=== PATIENT | female | born 1960 | race Caucasian/White ===

== ENCOUNTER 2017-06-10 08:00 | Outpatient (RCR) | payer OTHER, SELFPAY | END 2017-06-10 23:59 | LOC: OT 08:00 | PROVIDERS: PCP Family Medicine; Visit Provider Orthopaedic Surgery | DX: M19.012 Primary osteoarthritis, left shoulder (principal); M75.42 Impingement syndrome of left shoulder; M25.512 Pain in left shoulder | CPT/HCPCS: 97014; 97033; 97035; 97110; 97140; 97165; G0283 ==

== ENCOUNTER 2017-07-20 07:00 | Outpatient (RCR) | payer OTHER, SELFPAY | END 2017-07-20 07:01 | disposition home or self-care (01) | LOC: OT 07:00 | PROVIDERS: Family Provider Family Medicine; PCP Family Medicine; Visit Provider Orthopaedic Surgery | DX: M19.012 Primary osteoarthritis, left shoulder (principal) | CPT/HCPCS: 97014; 97033; 97035; 97110; 97124; 97140; G0283 ==

== ENCOUNTER → 2017-08-24 09:25 | Outpatient (CLI) | payer OTHER, SELFPAY ==
--- NOTE | 2017-08-24 09:28 | US_ITS ---
US extremity LT limited CLINICAL INDICATION: ITS.REASON: TENDER NODULE ORDERING PHYSICIAN: Benjie Silva MD PATIENT AGE: 57 years COMPARISON: None FINDINGS: General survey was performed of the left arm in the area of clinical concern. No sonographic anomalies are apparent. No solid or cystic lesions are evident. There is homogeneous echogenicity of the underlying muscle and soft tissue. IMPRESSION: Unremarkable targeted ultrasound of the left upper extremity. Any palpable nodule may better evaluated with MRI if clinically warranted
== END ==
PROVIDERS: Family Provider Family Medicine; PCP Family Medicine; Visit Provider Surgery
DX: R22.9 Localized swelling, mass and lump, unspecified (principal)
CPT/HCPCS: 76882

== ENCOUNTER → 2018-04-05 08:42 | Outpatient (CLI) | payer OTHER, SELFPAY ==
--- NOTE | 2018-04-05 08:49 | MM_ITS ---
MM Dig screening mamm BI w/CAD ORDERING PHYSICIAN : Jeevan Meléndez PATIENT AGE: 58 years GENDER: Female COMPARISON: March 2017, 2015, 2014 used for comparison No hormones. No new complaints. Noncontributory family history. INDICATION: ITS.REASON: SCREENING TECHNIQUE: Standard CC and MLO images were obtained. R2 CAD reviewed. FINDINGS: Low-density breast bilaterally with generalized fatty replacement. No dominant mass nor suspicious calcifications either breast. No architectural distortion no significant new areas of concern. Bilateral follow-up in one year recommended . IMPRESSION: ...... Stable bilateral mammogram. No new areas of concern Follow-up fall one year recommended BI-RADS Category: 1 Negative RECOMMENDED FOLLOW-UP: 1YR 1 YEAR FOLLOW-UP (A letter has been sent to the patient regarding results of the study.)
== END ==
PROVIDERS: PCP Family Medicine; Visit Provider Family Medicine
DX: Z12.31 Encounter for screening mammogram for malignant neoplasm of breast (principal)
CPT/HCPCS: 77067

== ENCOUNTER 2018-08-09 16:10 | Inpatient (IN) ==
--- NOTE | 2018-08-09 16:35 | Emergency Department Note ---
ED Disposition Clinical Impression: Influenza, Hypertension, Diabetes, Pneumonia, Lung nodule Disposition: Still a Patient Condition on Discharge: Fair Referrals: Jeevan Meléndez [Primary Care Provider] - - Critical Care Critical Care Time: No Attestation: On 08/09/18, the high probability of a clinically significant, sudden or life threatening deterioration of the following system(s) required my full and direct attention, intervention and personal management. The time I documented below is in addition to time spent performing reported procedures but includes the following listed in this critical care notation. Medical Decision Making - Chaitanya Inquiry Pt receiving controlled substance: No Chaitanya was queried for this patient: No Vital Signs: 08/09/18 16:21 Temperature 98.8 F Temperature Source Oral Pulse Rate [Left Radial] 105 H Respiratory Rate 22 Blood Pressure [Right Arm] 136/65 Blood Pressure Mean [Right Arm] 88 Blood Pressure Source [Right Arm] Automatic Cuff Blood Pressure Position [Right Arm] Sitting 02 Sat by Pulse Oximetry 94 L Oxygen Delivery Method Nasal Cannula Oxygen Flow Rate (LPM) 3 - Lab Data Lab Results 08/09/18 16:25: WBC 16.6 H, RBC 3.53 L, Hgb 11.3 L, Hct 34.9 L, MCV 98.9, MCH 32.1 H, MCHC 32.5, RDW 13.5, Plt Count 219, MPV 9.7, Neut % (Auto) 75.6, Lymph % (Auto) 18.3, [place] % (Auto) 5.2, Eos % (Auto) 0.3, Baso % (Auto) 0.6, Neut # (Auto) 12.5 H, Lymph # (Auto) 3.0, [place] # (Auto) 0.9, Eos # (Auto) 0.1, Baso # (Auto) 0.1 08/09/18 16:25: Sodium 137, Potassium 3.6, Chloride 100, Carbon Dioxide 25, Anion Gap 15.6 H, BUN 27 H, Creatinine 1.39 H, Estimated Creat Clear 65, Estimated GFR 39 L, Est GFR ( Amer) 47 L, Glucose 87, Calcium 10.5 H 08/09/18 16:25: Lactate 1.4 Result diagrams: 08/09/18 16:25 08/09/18 16:25 Orders (Tests/Meds): ORDERS Category Date Time Status Cardiac Enzymes Stat Lab 08/09/18 16:25 Received Complete Blood Count Auto Diff Stat Lab 08/09/18 16:25 Results Liver Panel Stat Lab 08/09/18 16:25 Received Blood Culture Stat Micro 08/09/18 16:25 Ordered Blood Culture Stat Micro 08/09/18 16:26 Ordered Urine Culture Routine Micro 08/09/18 16:54 Received EKG Request [ECG Request by /Grecia] Stat Y 08/09/18 16:37 Ordered - Radiology Data #1 Image(s): Chest Image Reviewed: Yes I reviewed the patient's radiology image Preliminary Findings: Abnormal IMPRESSION: 1. 13 mm left lower lobe pulmonary nodule new since the previous exam. Chest CT suggested for further evaluation. 2. Cardiomegaly without failure 3. Possible right perihilar infiltrate Medical Decision Narrative: Patient underwent a white count of 16 K, her chest x-ray report was normal for perihilar infiltrates and left lower lobe nodule. I contacted her primary care physician and again the Janeth who agreed to admit her for IV antibiotics and nebulizer treatment, the nodule will be addressed as an outpatient Resp/SOB HPI - General Chief Complaint: Shortness of Breath/Dyspnea Stated Complaint: flu Time Seen by Provider: 08/09/18 16:30 Mode of Arrival: Ambulatory Limitations: No Limitations Description of Symptoms (Recalled from ER Triage Doc. by RN): Pt was sent over from doctors office for low oxygen, states it was 80s in the office, she was dx with the flu - History of Present Illness 58 years old white female non smoker with history of diabetes mellitus and hypertension. 2 days ago she was diagnosed with influenza at [facility], since then she has been experiencing shortness of breath, wheezing, palpitation and exer tional dyspnea. The patient was seen by her primary care physician Dr. Meléndez who noted that she was experiencing mild hypoxia that is corrected by oxygen so he sent her to the ED for pneumonia work up. She denies having chest pain, nausea vomiting or diarrhea, hemoptysis hematemesis coffee-ground emesis melanotic stool or bleeding per rectum. He denies it denies having flank pain dysuria hematuria or frequency. She is requesting to be admitted to Kin Fowler MD Complaint: shortness of breath, cough Onset (ago): day(s) (2 days.) Severity: moderate Consistency/Duration: intermittent Relieving factors: oxygen, rest Exacerbating factors: exertion Known history of: diabetes Associated symptoms: cough, wheezing Treatment prior to arrival: oxygen, bronchodilator - Related Data Home Medications Medication Instructions Recorded Confirmed Amlodipine Besylate [Amlodipine 5 mg PO DAILY 08/09/18 08/09/18 5mg tab] Atorvastatin Calcium [Atorvastatin 20 mg PO DAILY 08/09/18 08/09/18 20mg Tab] Candesartan/Hydrochlorothiazid 1 each PO DAILY 08/09/18 08/09/18 [Candesartan-Hctz 32-12.5 mg Tb] Empagliflozin [Jardiance] 10 mg PO DAILY 08/09/18 08/09/18 Fenofibrate Nanocrystallized 145 mg PO DAILY 08/09/18 08/09/18 [Fenofibrate] Metformin HCl [Metformin ER 1,000 mg PO DAILY 08/09/18 08/09/18 Gastric] Oseltamivir Phosphate [Tamiflu 75 mg PO BID 08/09/18 08/09/18 75mg Capsule] Pioglitazone HCl [Actos 30mg 30 mg PO DAILY 08/09/18 08/09/18 tablet] glyBURIDE [Diabeta 5mg tablet] 5 mg PO DAILY 08/09/18 08/09/18 Allergies Allergy/AdvReac Type Severity Reaction Status Date / Time No Known Allergies Allergy Verified 08/27/17 14:26 [facility] History - Hepatitis A Screen Drug use history?: No High risk sexual behaviors?: No History of sexually transmitted infection?: No Currently employed?: No Childcare worker?: No Do you have indoor plumbing?: Yes Do you have electricity?: Yes Attestation statement:: This patient has been screened for Hepatitis A risk factors. I have reviewed the patient's past medical history: Yes Medical History: Reports:: Diabetes Mellitus Type 2 Denies:: Diabetes Mellitus Type 1 - Social History Smoking Status: Never smoker Alcohol Intake: never Alcohol Intake Frequency:: other Substance Use Type: denies use Occupational Status: employed - Psychiatric History Expresses thoughts of harming self/others: None Suicide Plan Description: No Plan Family Hx:: Hypertension ROS Obtained: Yes All systems reviewed & no additional complaints Physical Exam - General General appearance: alert, in no apparent distress, obese, other (He is in no cardiopulmonary distress. ) - Head Head exam: atraumatic, normocephalic, normal inspection - Eye Eye exam: Present: normal appearance, PERRL, EOMI. Absent: scleral icterus, nystagmus - ENT ENT exam: Present: normal exam, normal oropharynx, mucous membranes moist, TM's normal bilaterally, normal external ear exam - Neck Neck exam: Present: normal inspection, full ROM, trachea midline. Absent: tenderness, meningismus, lymphadenopathy - Chest Chest inspection: Present: normal inspection, symmetric chest wall rise. Absent: tenderness - Respiratory Respiratory exam: Present: normal lung sounds bilaterally, wheezes (The patient has very mild end expiratory rhonchi.). Absent: respiratory distress - Cardiovascular Cardiovascular exam: Present: regular rate, normal rhythm. Absent: JVD - Abdominal Exam Abdominal exam: Present: soft, normal bowel sounds. Absent: distention, tenderness, guarding, rebound, rigidity - Extremities Exam Extremities exam: Present: normal inspection, full ROM, normal capillary refill. Absent: calf tenderness - Back Exam Back exam: Present: normal inspection. Absent: tenderness, CVA tenderness (R), CVA tenderness (L), vertebral tenderness - Neurological Exam Neurological exam: Present: alert, oriented X3, CN II-XII intact, motor sensory deficit, reflexes normal - Psychiatric Psychiatric exam: Present: normal affect, normal mood - Skin Skin exam: Present: warm, dry, intact, normal color - Lymphatic Lymphatic Findings: no adenopathy
[2018-08-09 16:52] LABS: Basophils # 0.1 K/mm3 (0-0.2); Basophils % 0.6 % (0.1-2.0); Eosinophils # 0.1 K/mm3 (0.0-0.4); Eosinophils % 0.3 % (0.1-12.0); Hematocrit 34.9 % (37.0-47.0); Hemoglobin 11.3 g/dL (12.2-16.2); Lymphocytes % 18.3 % (10-50); Mean Corpuscular HGB Conc 32.5 g/dL (31.8-35.4); Mean Corpuscular Hemoglobin 32.1 pg (27.0-31.2); Mean Corpuscular Volume 98.9 fl (81-99); Mean Platelet Volume 9.7 fl (7.4-10.4); Monocytes # 0.9 K/mm3 (0.1-1.0); Monocytes % 5.2 % (1.7-9.3); Neutrophils # 12.5 K/mm3 (1.8-7.8); Neutrophils % 75.6 % (37.0-80.0); Platelet Count 219 K/mm3 (142-424); Red Blood Count 3.53 M/mm3 (4.20-5.40); Red Cell Distribution Width 13.5 % (11.5-17.5); White Blood Count 16.6 K/mm3 (4.8-10.8)
[2018-08-09 17:04] LABS: Anion Gap 15.6 mEq/L (5-15); Calcium 10.5 mg/dL (8.5-10.1); Potassium 3.6 mmoL/L (3.5-5.1)
[2018-08-09 17:15] LABS: Alanine Aminotransferase 33 U/L (12-78); Albumin Level 2.8 gm/dL (3.4-5.0); Alkaline Phosphatase 59 U/L (46-116); Aspartate Amino Transferase 23 U/L (15-37); Bilirubin,Direct 0.1 mg/dL (0.0-0.2); Bilirubin,Indirect 0.2 mg/dL (0.0-0.9); Bilirubin,Total 0.3 mg/dL (0.2-1.0); Creatine Kinase 75 U/L (26-192); Total Protein,Serum 8.2 gm/dL (6.4-8.2)
[2018-08-09 17:25] LABS: Lymphocytes % 18 % (10-50); Monocytes % 5 % (2-9); Neutrophils % 77 % (42-76); Total Cells Counted 100
--- NOTE | 2018-08-09 20:29 | History & Physical Report ---
*Admission Date: 08/09/18 *Chief complaint: sob *History of present illness: 58 yrs old female non smoker with history of diabetes mellitus and hypertension. Pt states 2 days ago she was diagnosed with influenza at [facility], since then she has been experiencing shortness of breath, wheezing, palpitation and exertional dyspnea. The patient was seen by her primary care physician Dr. Meléndez who noted that she was experiencing mild hypoxia, pulse ox in the 80's that is corrected by oxygen so he sent her to the ED for pneumonia work up. Pt admitted for pneumonia and low o2 sats needing o2. [facility] History I have reviewed the patient's past medical history: Yes Medical History: Reports:: Diabetes Mellitus Type 2, Hyperlipidemia, Hypertension Denies:: Cancer, Diabetes Mellitus Type 1, MRSA *Have you ever received a pneumonia vaccine?: No *Have you received a flu vaccine this season?: Yes Other Medical History: Reports: Arthritis Other Surgeries: Yes: Appendectomy - *Social History Educational Level: Completed High School Smoking Status: Former smoker Alcohol Intake: never Alcohol Intake Frequency:: other Substance Use Type: denies use *Occupational Status:: employed *Travel in the last 8 weeks: Inside the [place] - Psychiatric History Expresses thoughts of harming self/others: None Suicide Plan Description: No Plan Family Hx:: Diabetes, Heart Attack, Hypertension, Stroke Review of Systems - Review of Systems Review of systems:: pertinent systems reviewed and negative unless documented below - Constitutional Reports fever(s), Reports weakness - Eyes Denies double vision - ENT Denies difficulty swallowing - *Cardiovascular Reports shortness of breath, Denies chest pain with activity - *Respiratory Reports change in phlegm color, Reports chest congestion, Reports cough, Reports shortness of breath, Reports shortness of breath with activity, Reports wheezing - *Gastrointestinal Denies abdominal pain - *Genitourinary Denies urinary incontinence - *Musculoskeletal Denies decreased muscle mass - Integumentary/Breasts Denies rash - *Neurologic Denies dizziness - Psychiatric Denies anxiety - Endocrine Denies flushing - Hematologic/Lymphatic Denies enlarged lymph nodes - Allergic/Immunologic Denies lip swelling Meds Home Medications Medication Instructions Recorded Confirmed Type Amlodipine Besylate [Amlodipine 5 mg PO DAILY 08/09/18 08/09/18 History 5mg tab] Atorvastatin Calcium [Atorvastatin 20 mg PO DAILY 08/09/18 08/09/18 History 20mg Tab] Candesartan/Hydrochlorothiazid 1 each PO DAILY 08/09/18 08/09/18 History [Candesartan-Hctz 32-12.5 mg Tb] Empagliflozin [Jardiance] 10 mg PO DAILY 08/09/18 08/09/18 History Fenofibrate Nanocrystallized 145 mg PO DAILY 08/09/18 08/09/18 History [Fenofibrate] Metformin HCl [Metformin ER 1,000 mg PO BID 08/09/18 08/09/18 History Gastric] Oseltamivir Phosphate [Tamiflu 75 mg PO BID 08/09/18 08/09/18 History 75mg Capsule] Pioglitazone HCl [Actos 30mg 30 mg PO DAILY 08/09/18 08/09/18 History tablet] glyBURIDE [Diabeta 5mg tablet] 5 mg PO BID 08/09/18 08/09/18 History Allergies Allergy/AdvReac Type Severity Reaction Status Date / Time No Known Allergies Allergy Verified 08/27/17 14:26 Exam Vital signs and Labs for Last 24 Hours: Temp Pulse Resp BP Pulse Ox 98.2 F 95 H 20 136/67 93 L 08/09/18 18:38 08/09/18 18:38 08/09/18 18:38 08/09/18 18:38 08/09/18 18:38 Laboratory Results - last 24 hr 08/09/18 16:25: WBC 16.6 H, RBC 3.53 L, Hgb 11.3 L, Hct 34.9 L, MCV 98.9, MCH 32.1 H, MCHC 32.5, RDW 13.5, Plt Count 219, MPV 9.7, Neut % (Auto) 75.6, Lymph % (Auto) 18.3, [place] % (Auto) 5.2, Eos % (Auto) 0.3, Baso % (Auto) 0.6, Neut # (Auto) 12.5 H, Lymph # (Auto) 3.0, [place] # (Auto) 0.9, Eos # (Auto) 0.1, Baso # (Auto) 0.1, Total Counted 100, Neutrophils % (Manual) 77 H, Lymphocytes % (Manual) 18, Monocytes % (Manual) 5, Platelet Estimate Normal 08/09/18 16:25: Sodium 137, Potassium 3.6, Chloride 100, Carbon Dioxide 25, Anion Gap 15.6 H, BUN 27 H, Creatinine 1.39 H, Estimated Creat Clear 65, Estimated GFR 39 L, Est GFR ( Amer) 47 L, Glucose 87, Calcium 10.5 H 08/09/18 16:25: Lactate 1.4 08/09/18 16:25: Total Bilirubin 0.3, Direct Bilirubin 0.1, Indirect Bilirubin 0.2, AST 23, ALT 33, Alkaline Phosphatase 59, Total Creatine Kinase 75, CK-MB (CK-2) 0.7, CK-MB (CK-2) Rel Index 0.9, Troponin I < 0.02, Total Protein 8.2, Albumin 2.8 L I & O for Last 24 hours: Intake & Output 08/07/18 08/08/18 08/09/18 08/10/18 11:59 11:59 11:59 11:59 Weight 209 lb 9 oz - Constitutional no acute distress - *Routine HEENT Exam Head: Present: normocephalic Eye: Present: EOMI, PERRL ENT: Present: mucous membranes moist - *Routine Neck Exam Present: supple. Absent: lymphadenopathy - *Routine Respiratory Exam Present: wheezes, diminished air movement - *Routine Cardiovascular Exam Present: RRR - *Routine Abdominal Exam Present: soft, normoactive bowel sounds. Absent: tenderness - *Routine Extremities Exam Present: full ROM. Absent: cyanosis, clubbing, edema - *Routine Skin Exam Present: warm. Absent: rash - *Routine Neurological Exam Present: alert, oriented X3 - Routine Psychiatric Exam Present: normal affect Assessment and Plan - Assessment and plan all Dx Assessment and Plan for all problems:: orders per gabe
[2018-08-10 07:20] LABS: Basophils # 0.1 K/mm3 (0-0.2); Basophils % 0.5 % (0.1-2.0); Eosinophils # 0.1 K/mm3 (0.0-0.4); Eosinophils % 0.8 % (0.1-12.0); Lymphocytes # 1.9 K/mm3 (0.7-4.5); Lymphocytes % 18.4 % (10-50); Mean Corpuscular HGB Conc 30.8 g/dL (31.8-35.4); Mean Corpuscular Hemoglobin 31.7 pg (27.0-31.2); Mean Platelet Volume 9.8 fl (7.4-10.4); Monocytes # 0.5 K/mm3 (0.1-1.0); Monocytes % 4.8 % (1.7-9.3); Neutrophils # 7.7 K/mm3 (1.8-7.8); Neutrophils % 75.5 % (37.0-80.0); Platelet Count 164 K/mm3 (142-424); Red Blood Count 3.11 M/mm3 (4.20-5.40); Red Cell Distribution Width 13.3 % (11.5-17.5); White Blood Count 10.3 K/mm3 (4.8-10.8)
[2018-08-10 07:23] LABS: Anion Gap 13.6 mEq/L (5-15); Potassium 3.6 mmoL/L (3.5-5.1)
--- NOTE | 2018-08-10 07:30 | Pharmacy Consult Notes ---
[facility] Pharmacy VTE Monitoring - Patient Demographics Admission date: 08/10/18 Report Date: 08/10/18 Time: 07:30 Allergies/Adverse Reactions: Patient Allergies No Known Allergies Allergy (Verified 08/27/17 14:26) Height: 1.57 m Weight: 95.056 kg Patient Problems: Current Active Problems Influenza (Acute) Hypertension (Acute) Diabetes (Acute) Pneumonia (Acute) Lung nodule (Acute) - VTE Risk Labs: VTE Related Lab Results Hgb 11.3 g/dL (12.2-16.2) L 08/09/18 16:25 Hct 32.0 % (37.0-47.0) L 08/10/18 05:58 Plt Count 164 K/mm3 (142-424) D 08/10/18 05:58 BUN 28 mg/dL (7-18) H 08/10/18 05:58 Creatinine 1.20 mg/dL (0.55-1.02) H 08/10/18 05:58 Estimated Creat Clear 75 mL/min (50-200) 08/10/18 05:58 Was VTE Risk Assessment Performed: Yes VTE Score: 2 VTE Risk Level: Very Low Risk Clinical Trial Participant: No - Prophylaxis VTE Prophylaxis Ordered?: Yes Types of VTE Prophylaxis: TEDS Knee High
[2018-08-10 07:33] LABS: Calcium 9.3 mg/dL (8.5-10.1)
[2018-08-10 07:46] LABS: Hemoglobin 9.8 g/dL (12.2-16.2)
--- NOTE | 2018-08-10 10:06 | Progress Note ---
Internal Medicine - PN: Subj *Date: 08/10/18 *Time: 09:15 Interval history: pt has o2 off wiping nose and o2 sat dropped to 83%. Exam Vital signs and Labs for Last 24 Hours: Temp Pulse Resp BP Pulse Ox 98.4 F 85 18 125/66 93 L 08/10/18 08:00 08/10/18 08:00 08/10/18 08:00 08/10/18 08:00 08/10/18 08:00 Laboratory Results - last 24 hr 08/09/18 16:25: WBC 16.6 H, RBC 3.53 L, Hgb 11.3 L, Hct 34.9 L, MCV 98.9, MCH 32.1 H, MCHC 32.5, RDW 13.5, Plt Count 219, MPV 9.7, Neut % (Auto) 75.6, Lymph % (Auto) 18.3, [place] % (Auto) 5.2, Eos % (Auto) 0.3, Baso % (Auto) 0.6, Neut # (Auto) 12.5 H, Lymph # (Auto) 3.0, [place] # (Auto) 0.9, Eos # (Auto) 0.1, Baso # (Auto) 0.1, Total Counted 100, Neutrophils % (Manual) 77 H, Lymphocytes % (Manual) 18, Monocytes % (Manual) 5, Platelet Estimate Normal 08/09/18 16:25: Sodium 137, Potassium 3.6, Chloride 100, Carbon Dioxide 25, Anion Gap 15.6 H, BUN 27 H, Creatinine 1.39 H, Estimated Creat Clear 65, Jane mated GFR 39 L, Est GFR ( Amer) 47 L, Glucose 87, Calcium 10.5 H 08/09/18 16:25: Lactate 1.4 08/09/18 16:25: Total Bilirubin 0.3, Direct Bilirubin 0.1, Indirect Bilirubin 0.2, AST 23, ALT 33, Alkaline Phosphatase 59, Total Creatine Kinase 75, CK-MB (CK-2) 0.7, CK-MB (CK-2) Rel Index 0.9, Troponin I < 0.02, Total Protein 8.2, Albumin 2.8 L 08/09/18 20:21: POC Glucose 175 H 08/10/18 05:45: POC Glucose 83 08/10/18 05:58: WBC 10.3 D, RBC 3.11 L, Hgb 9.8 L D, Hct 32.0 L, MCV 103.0 H, MCH 31.7 H, MCHC 30.8 L, RDW 13.3, Plt Count 164 D, MPV 9.8, Neut % (Auto) 75.5, Lymph % (Auto) 18.4, [place] % (Auto) 4.8, Eos % (Auto) 0.8, Baso % (Auto) 0.5, Neut # (Auto) 7.7, Lymph # (Auto) 1.9, [place] # (Auto) 0.5, Eos # (Auto) 0.1, Baso # (Auto) 0.1 08/10/18 05:58: Sodium 140, Potassium 3.6, Chloride 106, Carbon Dioxide 24, Anion Gap 13.6, BUN 28 H, Creatinine 1.20 H, Estimated Creat Clear 75, Estimated GFR 46 L, Est GFR ( Amer) 55 L, Glucose 79, Calcium 9.3 D 08/10/18 05:58: Mycoplasma pneumon IgM Non-reactive 08/10/18 09:13: Troponin I < 0.02 I & O for Last 24 hours: Intake & Output 08/07/18 08/08/18 08/09/18 08/10/18 11:59 11:59 11:59 11:59 Intake Total 1470 / 1470 Balance 1470 / 1470 Weight 209 lb 9 oz Microbiology Reports for the Last 24 Hours: Microbiology 08/09/18 Unknown Sputum - Expectorated Sputum Gram Stain - Final - Constitutional no acute distress - *Routine HEENT Exam Head: Present: normocephalic Eye: Present: EOMI, PERRL ENT: Present: mucous membranes moist - *Routine Neck Exam Present: supple. Absent: lymphadenopathy - *Routine Respiratory Exam Present: wheezes, diminished air movement - *Routine Cardiovascular Exam Present: RRR - *Routine Abdominal Exam Present: soft, normoactive bowel sounds. Absent: tenderness - *Routine Extremities Exam Absent: cyanosis, clubbing, edema - *Routine Skin Exam Present: warm. Absent: rash - *Routine Neurological Exam Present: alert, oriented X3 - Routine Psychiatric Exam Present: normal affect Assessment and Plan - Assessment and plan all Dx Assessment and Plan for all problems:: discussed with gabe, all orders per gabe ct to r/o pe cardiology consult/echo- enlarged heart wait culture results
--- NOTE | 2018-08-10 10:24 | Consult Report ---
History of Present Illness Consult date: 08/10/18 Requesting physician: Rashid Tovar Consult reason: shortness of breath Chief complaint: SOA, fatigue Additional Medical History:: 1. Diabetes mellitus, treated for many years 2. Hypertension, treated for many years 3. Hyperlipidemia, treated for many years 4. Cardiomegaly noted on chest x-ray 07/2018 5. Hospitalized for pneumonia and flu 07/2018 6. History of tobacco use for 40 years, discontinued approximately 2011 7. Strong family history of coronary artery disease in both of her parents in their mid 50s History of present illness: 58-year-old white female with history of diabetes, hypertension and hyperlipidemia admitted to the hospital for hypoxia. Patient's primary care physician is Dr. Meléndez who noted that the patient was hypoxic at office visit for follow-up. Recently diagnosed with flu with continued fatigue and shortness of breath. Patient denies any chest pain, pressure or tightness. No history of exertional chest pain or shortness of breath prior to the diagnosis of the flu. She was in [place] last week at a for her brother and upon returning home noticed the increasing fatigue and weakness with shortness of breath. Patient hospitalized due to hypoxia and chest x-ray evidence of pneumonia on top of her flu diagnosis. Cardiology consulted due to mention of cardiomegaly noted on chest x-ray. Troponins have returned normal x2. Echocardiogram has been ordered. [facility] History Medical History: Reports:: Diabetes Mellitus Type 2, Hyperlipidemia, Hypertension Denies:: Cancer, Diabetes Mellitus Type 1, MRSA *Have you ever received a pneumonia vaccine?: No *Have you received a flu vaccine this season?: Yes Other Medical History: Reports: Arthritis Other Surgeries: Yes: Appendectomy - *Social History Educational Level: Completed High School Smoking Status: Former smoker Alcohol Intake: never Alcohol Intake Frequency:: other Substance Use Type: denies use *Occupational Status:: employed *Travel in the last 8 weeks: Inside the [place] - Psychiatric History Expresses thoughts of harming self/others: None Suicide Plan Description: No Plan Family Hx:: Diabetes, Heart Attack, Hypertension, Stroke Meds Home Medications Medication Instructions Recorded Confirmed Type Amlodipine Besylate [Amlodipine 5 mg PO DAILY 08/09/18 08/09/18 History 5mg tab] Atorvastatin Calcium [Atorvastatin 20 mg PO HS 08/09/18 08/10/18 History 20mg Tab] Candesartan/Hydrochlorothiazid 1 tab PO DAILY 08/09/18 08/10/18 History [Candesartan-Hctz 32-12.5 mg Tb] Empagliflozin [Jardiance] 10 mg PO DAILY 08/09/18 08/09/18 History Fenofibrate Nanocrystallized 145 mg PO HS 08/09/18 08/10/18 History [Fenofibrate] Metformin HCl [Metformin ER 1,000 mg PO BID 08/09/18 08/09/18 History Gastric] Oseltamivir Phosphate [Tamiflu 75 mg PO BID 08/09/18 08/09/18 History 75mg Capsule] Pioglitazone HCl [Actos 30mg 30 mg PO DAILY 08/09/18 08/09/18 History tablet] glyBURIDE [Diabeta 5mg tablet] 10 mg PO BID 08/09/18 08/10/18 History Allergies Allergy/AdvReac Type Severity Reaction Status Date / Time No Known Allergies Allergy Verified 08/27/17 14:26 Review of Systems - *Cardiovascular Reports shortness of breath, Reports shortness of breath with activity, Denies chest pain - *Respiratory Reports shortness of breath, Reports shortness of breath with activity - *Gastrointestinal Denies abdominal pain, Denies nausea, Denies vomiting - *Genitourinary Denies blood in urine - *Musculoskeletal Denies joint pain, Denies back pain - *Neurologic Reports weakness, Denies dizziness Exam Vital signs and Labs for Last 24 Hours: Temp Pulse Resp BP Pulse Ox 98.4 F 85 18 125/66 93 L 08/10/18 08:00 08/10/18 08:00 08/10/18 08:00 08/10/18 08:00 08/10/18 08:00 Laboratory Results - last 24 hr 08/09/18 16:25: WBC 16.6 H, RBC 3.53 L, Hgb 11.3 L, Hct 34.9 L, MCV 98.9, MCH 32.1 H, MCHC 32.5, RDW 13.5, Plt Count 219, MPV 9.7, Neut % (Auto) 75.6, Lymph % (Auto) 18.3, [place] % (Auto) 5.2, Eos % (Auto) 0.3, Baso % (Auto) 0.6, Neut # (Auto) 12.5 H, Lymph # (Auto) 3.0, [place] # (Auto) 0.9, Eos # (Auto) 0.1, Baso # (Auto) 0.1, Total Counted 100, Neutrophils % (Manual) 77 H, Lymphocytes % (Manual) 18, Monocytes % (Manual) 5, Platelet Estimate Normal 08/09/18 16:25: Sodium 137, Potassium 3.6, Chloride 100, Carbon Dioxide 25, Anion Gap 15.6 H, BUN 27 H, Creatinine 1.39 H, Estimated Creat Clear 65, Estimated GFR 39 L, Est GFR ( Amer) 47 L, Glucose 87, Calcium 10.5 H 08/09/18 16:25: Lactate 1.4 08/09/18 16:25: Total Bilirubin 0.3, Direct Bilirubin 0.1, Indirect Bilirubin 0.2, AST 23, ALT 33, Alkaline Phosphatase 59, Total Creatine Kinase 75, CK-MB (CK-2) 0.7, CK-MB (CK-2) Rel Index 0.9, Troponin I < 0.02, Total Protein 8.2, Albumin 2.8 L 08/09/18 20:21: POC Glucose 175 H 08/10/18 05:45: POC Glucose 83 08/10/18 05:58: WBC 10.3 D, RBC 3.11 L, Hgb 9.8 L D, Hct 32.0 L, MCV 103.0 H, MCH 31.7 H, MCHC 30.8 L, RDW 13.3, Plt Count 164 D, MPV 9.8, Neut % (Auto) 75.5, Lymph % (Auto) 18.4, [place] % (Auto) 4.8, Eos % (Auto) 0.8, Baso % (Auto) 0.5, Neut # (Auto) 7.7, Lymph # (Auto) 1.9, [place] # (Auto) 0.5, Eos # (Auto) 0.1, Baso # (Auto) 0.1 08/10/18 05:58: Sodium 140, Potassium 3.6, Chloride 106, Carbon Dioxide 24, Anion Gap 13.6, BUN 28 H, Creatinine 1.20 H, Estimated Creat Clear 75, Estimated GFR 46 L, Est GFR ( Amer) 55 L, Glucose 79, Calcium 9.3 D 08/10/18 05:58: Mycoplasma pneumon IgM Non-reactive 08/10/18 09:13: Troponin I < 0.02 I & O for Last 24 hours: Intake & Output 08/07/18 08/08/18 08/09/18 08/10/18 11:59 11:59 11:59 11:59 Intake Total 1470 / 1470 Balance 1470 / 1470 Weight 209 lb 9 oz Microbiology Reports for the Last 24 Hours: Microbiology 08/09/18 Unknown Sputum - Expectorated Sputum Gram Stain - Final - *Routine HEENT Exam Head: Present: normocephalic Eye: Present: EOMI, PERRL ENT: Present: mucous membranes moist - *Routine Neck Exam Present: supple. Absent: JVD, carotid bruit - *Routine Respiratory Exam Present: rales, rhonchi, diminished air movement. Absent: accessory muscle use, wheezes - *Routine Cardiovascular Exam Present: RRR. Absent: murmur, gallop, rubs - *Routine Abdominal Exam Present: soft. Absent: tenderness, distended, guarding - *Routine Extremities Exam Absent: edema, calf tenderness - *Routine Neurological Exam Present: alert, oriented X3, moving all extremities Assessment and Plan (1) Hypoxia Current visit: Yes Status: Acute Category: Medical Code(s): R09.02 - Hypoxemia (2) Cardiomegaly Current visit: Yes Status: Acute Category: Medical Code(s): I51.7 - Cardiomegaly (3) Ex-smoker for more than 1 year Current visit: Yes Status: Acute Category: Social Hx Code(s): Z87.891 - Personal history of nicotine dependence (4) Diabetes Current visit: Yes Status: Acute Category: Medical Code(s): E11.9 - Type 2 diabetes mellitus without complications (5) Hypertension Current visit: Yes Status: Acute Category: Medical Code(s): I10 - Ess ential (primary) hypertension (6) Influenza Current visit: Yes Status: Acute Category: Medical Code(s): J11.1 - Influenza due to unidentified influenza virus with other respiratory manifestations (7) Lung nodule Current visit: Yes Status: Acute Category: Medical Code(s): R91.1 - Solitary pulmonary nodule (8) Pneumonia Current visit: Yes Status: Acute Category: Medical Code(s): J18.9 - Pneumonia, unspecified organism - Assessment and plan all Dx Assessment and Plan for all problems:: 1. Obtain echocardiogram and EKG 2. Once patient has covered from both pneumonia and flu would pursue outpatient cardiac workup unless echocardiogram shows severe abnormality. 3. Further recommendations to follow pending results of echo.
--- NOTE | 2018-08-10 18:56 | Cardiology Report ---
PROCEDURE: 2-D M-mode and color Doppler study INDICATIONS FOR THE TEST: Chest pain COPD Heart Murmur Tobacco SmokingEX Palpitations Fatigue Syncope Edema Hypertension+Diabetes Mellitus+ Rheumatic Fever SOB+VALENCIA+Obesity+Hyperlipidemia+ Family History HD Additional History pneumonia, flu, lung nodule PATIENT INFORMATION HEIGHT: 62 WEIGHT: 209 GENDER: Female B/P: 136/67 2-D/M-MODE INTERPRETATION: 2-D MEASUREMENTS OBSERVED VALUES IN CMS Right Ventricular Dimension (RVDd) 2.5 Interventricular Septum (Thickness)(IVsd) 0.9 Left Ventricular Internal Dimensions(LVIDd) 5.3 Left Ventricular Posterior Wall (Thickness)(LVPWd) 0.9 Aortic Root 2.8 Aortic Cusp Separation 2.0 Left Atrial Dimensions (LAD) 3.8 2D 1. Left atrium is normal size, left ventricle is normal size, there is no concentric left ventricular hypertrophy, visually estimated ejection fraction of 55% with no regional wall motion abnormality. 2. The right atrium and right ventricle are normal size and contractility. 3. The aortic, mitral and tricuspid valvular grossly normal. 4. The pulmonic valve is poorly visualized. 5. No significant pericardial effusion noted. DOPPLER INTERROGATION: Doppler interrogation of the aortic, mitral and tricuspid valvular presence of mild mitral and tricuspid regurgitation, tricuspid regurgitation jet velocity is inadequate for calculation of the right systolic pressure, diastolic parameters are within normal range. CONCLUSION: 1. Normal left ventricular size normal left ventricular size, preserved left ventricular systolic pressure, visually estimated ejection fraction 55% with no regional wall motion abnormality, diastolic parameters are within normal range. 2. Mild mitral and tricuspid. 3.No significant pericardial effusion.
[2018-08-11 07:12] LABS: Basophils # 0.1 K/mm3 (0-0.2); Basophils % 0.8 % (0.1-2.0); Eosinophils # 0.1 K/mm3 (0.0-0.4); Eosinophils % 1.3 % (0.1-12.0); Hematocrit 32.1 % (37.0-47.0); Hemoglobin 9.7 g/dL (12.2-16.2); Mean Corpuscular HGB Conc 30.3 g/dL (31.8-35.4); Mean Corpuscular Hemoglobin 30.9 pg (27.0-31.2); Mean Platelet Volume 9.4 fl (7.4-10.4); Monocytes # 0.6 K/mm3 (0.1-1.0); Monocytes % 5.4 % (1.7-9.3); Neutrophils # 7.9 K/mm3 (1.8-7.8); Neutrophils % 73.5 % (37.0-80.0); Platelet Count 204 K/mm3 (142-424); Red Blood Count 3.15 M/mm3 (4.20-5.40); Red Cell Distribution Width 13.4 % (11.5-17.5); White Blood Count 10.7 K/mm3 (4.8-10.8)
--- NOTE | 2018-08-11 08:39 | Progress Note ---
Subjective Date: 08/11/18 Time: 08:36 Principal diagnosis: SOA Interval history: 58-year-old white female in room in bedside chair in no acute distress. States she is gradually feeling better but still with some shortness of breath. She denies any chest pain, pressure or tightness. Exam Vital signs and Labs for Last 24 Hours: Temp Pulse Resp BP Pulse Ox 98.3 F 83 18 130/65 96 08/11/18 07:55 08/11/18 07:55 08/11/18 07:55 08/11/18 07:55 08/11/18 07:55 Laboratory Results - last 24 hr 08/10/18 09:13: Troponin I < 0.02 08/10/18 10:53: POC Glucose 125 H 08/10/18 16:49: POC Glucose 103 08/10/18 20:14: POC Glucose 111 H 08/11/18 06:31: POC Glucose 94 08/11/18 06:34: WBC 10.7, RBC 3.15 L, Hgb 9.7 L, Hct 32.1 L, MCV 102.0 H, MCH 30.9, MCHC 30.3 L, RDW 13.4, Plt Count 204, MPV 9.4, Neut % (Auto) 73.5, Lymph % (Auto) 19.0, [place] % (Auto) 5.4, Eos % (Auto) 1.3, Baso % (Auto) 0.8, Neut # (Auto) 7.9 H, Lymph # (Auto) 2.0, [place] # (Auto) 0.6, Eos # (Auto) 0.1, Baso # (Auto) 0.1 I & O for Last 24 hours: Intake & Output 08/08/18 08/09/18 08/10/18 08/11/18 11:59 11:59 11:59 11:59 Intake Total 1470 / 1470 2842 / 2842 Balance 1470 / 1470 2842 / 2842 Weight 209 lb 9 oz 209 lb 9.002 oz Microbiology Reports for the Last 24 Hours: Microbiology 08/09/18 Unknown Sputum - Expectorated Sputum Gram Stain - Final 08/09/18 Unknown Sputum - Expectorated Sputum Sputum Culture - Preliminary 08/09/18 22:30 Urine,Clean Catch Urine Culture - Final Multiple organisms, suggests contamination. - *Routine HEENT Exam Head: Present: normocephalic Eye: Present: EOMI, PERRL ENT: Present: mucous membranes moist - *Routine Respiratory Exam Present: rhonchi, wheezes. Absent: accessory muscle use, rales - *Routine Cardiovascular Exam Present: RRR. Absent: murmur, gallop, rubs - *Routine Neurological Exam Present: alert, oriented X3, moving all extremities Progress Note: A&P (1) Hypoxia Status: Acute Current Visit: Yes (2) Ex-smoker for more than 1 year Status: Acute Current Visit: Yes (3) Diabetes Status: Acute Current Visit: Yes (4) Hypertension Status: Acute Current Visit: Yes (5) Influenza Status: Acute Current Visit: Yes (6) Lung nodule Status: Acute Current Visit: Yes (7) Pneumonia Status: Acute Current Visit: Yes Assessment and Plan for All Diagnoses:: Patient is stable from a cardiology standpoint. Echocardiogram showed normal left ventricular size and function with only mild mitral regurgitation. No further testing as an inpatient. Recommend stress testing as an outpatient due to multiple cardiac risk factors. We will see her as needed.
--- NOTE | 2018-08-11 08:48 | Progress Note ---
Internal Medicine - PN: Subj *Date: 08/11/18 *Time: 08:00 Interval history: pt states she is feeling better today but still having low o2 sat 88-89% Exam Vital signs and Labs for Last 24 Hours: Temp Pulse Resp BP Pulse Ox 98.3 F 83 18 130/65 96 08/11/18 07:55 08/11/18 07:55 08/11/18 07:55 08/11/18 07:55 08/11/18 07:55 Laboratory Results - last 24 hr 08/10/18 09:13: Troponin I < 0.02 08/10/18 10:53: POC Glucose 125 H 08/10/18 16:49: POC Glucose 103 08/10/18 20:14: POC Glucose 111 H 08/11/18 06:31: POC Glucose 94 08/11/18 06:34: WBC 10.7, RBC 3.15 L, Hgb 9.7 L, Hct 32.1 L, MCV 102.0 H, MCH 30.9, MCHC 30.3 L, RDW 13.4, Plt Count 204, MPV 9.4, Neut % (Auto) 73.5, Lymph % (Auto) 19.0, [place] % (Auto) 5.4, Eos % (Auto) 1.3, Baso % (Auto) 0.8, Neut # (Auto) 7.9 H, Lymph # (Auto) 2.0, [place] # (Auto) 0.6, Eos # (Auto) 0.1, Baso # (Auto) 0.1 I & O for Last 24 hours: Intake & Output 08/08/18 08/09/18 08/10/18 08/11/18 11:59 11:59 11:59 11:59 Intake Total 1470 / 1470 2842 / 2842 Balance 1470 / 1470 2842 / 2842 Weight 209 lb 9 oz 209 lb 9.002 oz Microbiology Reports for the Last 24 Hours: Microbiology 08/09/18 Unknown Sputum - Expectorated Sputum Gram Stain - Final 08/09/18 Unknown Sputum - Expectorated Sputum Sputum Culture - Preliminary 08/09/18 22:30 Urine,Clean Catch Urine Culture - Final Multiple organisms, suggests contamination. - Constitutional no acute distress - *Routine HEENT Exam Head: Present: normocephalic Eye: Present: EOMI, PERRL ENT: Present: mucous membranes moist - *Routine Neck Exam Present: supple. Absent: lymphadenopathy - *Routine Respiratory Exam Present: wheezes, diminished air movement - *Routine Cardiovascular Exam Present: RRR - *Routine Abdominal Exam Present: soft, normoactive bowel sounds. Absent: tenderness - *Routine Extremities Exam Absent: cyanosis, clubbing, edema - *Routine Skin Exam Present: warm. Absent: rash - *Routine Neurological Exam Present: alert, oriented X3 - Routine Psychiatric Exam Present: normal affect Assessment and Plan (1) Hypoxia Current visit: Yes Status: Acute Category: Medical Code(s): R09.02 - Hypoxemia (2) Ex-smoker for more than 1 year Current visit: Yes Status: Acute Category: Social Hx Code(s): Z87.891 - Personal history of nicotine dependence (3) Diabetes Current visit: Yes Status: Acute Category: Medical Code(s): E11.9 - Type 2 diabetes mellitus without complications (4) Hypertension Current visit: Yes Status: Acute Category: Medical Code(s): I10 - Essential (primary) hypertension (5) Influenza Current visit: Yes Status: Acute Category: Medical Code(s): J11.1 - Influenza due to unidentified influenza virus with other respiratory manifestations (6) Lung nodule Current visit: Yes Status: Acute Category: Medical Code(s): R91.1 - [place]ita [place] pulmonary nodule (7) Pneumonia Current visit: Yes Status: Acute Category: Medical Code(s): J18.9 - Pneumonia, unspecified organism - Assessment and plan all Dx Assessment and Plan for all problems:: rounded with gabe all orders per gabe
[2018-08-11 12:17] LABS: Albumin Level 2.5 gm/dL (3.4-5.0); Albumin/Globulin Ratio 0.5 (1.1-1.8); Anion Gap 18.1 mEq/L (5-15); Bilirubin,Total 0.2 mg/dL (0.2-1.0); Calcium 9.2 mg/dL (8.5-10.1); Globulin 4.9 gm/dl (1.3-3.2); Potassium 4.1 mmoL/L (3.5-5.1); Total Protein,Serum 7.4 gm/dL (6.4-8.2)
--- NOTE | 2018-08-12 09:22 | Discharge Summary ---
General - General Admission date:: 08/09/18 Discharge date: 08/12/18 HPI HPI: 58 yrs old female non smoker with history of diabetes mellitus and hypertension. Pt states 2 days ago she was diagnosed with influenza at [facility], since then she has been experiencing shortness of breath, wheezing, palpitation and exertional dyspnea. The patient was seen by her primary care physician Dr. Meléndez who noted that she was experiencing mild hypoxia, pulse ox in the 80's that is corrected by oxygen so he sent her to the ED for pneumonia work up. Pt admitted for pneumonia and low o2 sats needing o2. Hospital Course Hospital Course: iv antibiotics, breathing treatments, o2, chest ct:IMPRESSION: 1. Bilateral pneumonia. There is mediastinal and right hilar adenopathy which could be reactive. Recommend follow-up to confirm resolution. Trace bilateral effusions 2. Parenchymal opacity in the left lung base posteriorly may be due to an area of pneumonia as opposed to a pulmonary nodule as seen on the chest x-ray. Follow-up suggested to confirm resolution. 3. No evidence of pulmonary vessels aortic aneurysm or dissection chest x ray; pneumonia cardiology consult- see note today pt states she has been off o2 all night and sat 91% Objective Vital signs: Temp Pulse Resp BP Pulse Ox 98.1 F 85 20 120/68 91 L 08/12/18 08:00 08/12/18 08:00 08/12/18 08:00 08/12/18 08:00 08/12/18 08:00 no acute distress - *Routine HEENT Exam Head: Present: normocephalic Eye: Present: PERRL ENT: Present: mucous membranes moist - *Routine Respiratory Exam Present: wheezes - *Routine Cardiovascular Exam Present: RRR - *Routine Abdominal Exam Present: soft, normoactive bowel sounds - *Routine Skin Exam Present: intact - *Routine Neurological Exam Present: alert, oriented X3 - Routine Psychiatric Exam Present: normal affect Results Labs on day of discharge: Labs from last 24 hours 08/12/18 08/11/18 08/11/18 06:32 11:26 06:34 Sodium 143 Potassium 4.1 Chloride 108 H Carbon Dioxide 21 Anion Gap 18.1 H BUN 19 H D Creatinine 0.79 D Estimated Creat Clear 114 Estimated GFR 74 Est GFR ( Amer) 90 D Glucose 98 POC Glucose 115 H 169 H Calcium 9.2 Total Bilirubin 0.2 AST 30 D ALT 36 Alkaline Phosphatase 45 L Total Protein 7.4 Albumin 2.5 L Globulin 4.9 H Albumin/Globulin Ratio 0.5 L Preliminary micro results at discharge 08/09/18 Unknown Sputum Culture - Preliminary Sputum - Expectorated Sputum 08/09/18 16:26 Blood Culture - Preliminary Blood NO GROWTH AFTER 48 HOURS 08/09/18 16:26 Blood Culture - Preliminary Blood NO GROWTH AFTER 48 HOURS - Additional Comments rounded with gabe all orders per gabe DS: Diagnosis - Discharge Diagnosis (1) Hypoxia Status: Acute (2) Ex-smoker for more than 1 year Status: Acute (3) Diabetes Status: Acute (4) Hypertension Status: Acute (5) Influenza Status: Acute (6) Lung nodule Status: Acute (7) Pneumonia Status: Acute Discharge Plan - Patient Discharge Instructions ACTIVITY: Continue current activity DIET: continue same diet Patient Instructions: DI for Pneumonia -- Adult, DI for Influenza -- Adult - Follow up Plan Follow up with: Yandel Meléndez [Referring] - Disposition: Home, Self-Long-Term Medications: Home Medications Medication Instructions Recorded Confirmed Type Amlodipine Besylate [Amlodipine 5 mg PO DAILY 08/09/18 08/09/18 History 5mg tab] Atorvastatin Calcium [Atorvastatin 20 mg PO HS 08/09/18 08/10/18 History 20mg Tab] Candesartan/Hydrochlorothiazid 1 tab PO DAILY 08/09/18 08/10/18 History [Candesartan-Hctz 32-12.5 mg Tb] Empagliflozin [Jardiance] 10 mg PO DAILY 08/09/18 08/09/18 History Fenofibrate Nanocrystallized 145 mg PO HS 08/09/18 08/10/18 History [Fenofibrate] Metformin HCl [Metformin ER 1,000 mg PO BID 08/09/18 08/09/18 History Gastric] Oseltamivir Phosphate [Tamiflu 75 mg PO BID 08/09/18 08/09/18 History 75mg Capsule] Pioglitazone HCl [Actos 30mg 30 mg PO DAILY 08/09/18 08/09/18 History tablet] glyBURIDE [Diabeta 5mg tablet] 10 mg PO BID 08/09/18 08/10/18 History Azithromycin [Zithromax 250mg 250 mg PO 1300 5 Days #5 tablet 08/12/18 Rx tab] Ipratropium/Albuterol Sulfate 3 ml IH Q4HP PRN 30 Days #100 08/12/18 Rx [Duoneb 3mL neb] ampul.neb predniSONE [Prednisone 20mg 20 mg PO BID #10 tab 08/12/18 Rx Tab] Prescriptions/Medication Reconciliation: New Ipratropium/Albuterol Sulfate [Duoneb 3mL neb] 3 ml IH Q4HP PRN 30 Days #100 ampul.neb PRN Reason: Shortness Of Breath predniSONE [Prednisone 20mg Tab] 20 mg PO BID #10 tab Azithromycin [Zithromax 250mg tab] 250 mg PO 1300 5 Days #5 tablet Continue Amlodipine Besylate [Amlodipine 5mg tab] 5 mg PO DAILY Pioglitazone HCl [Actos 30mg tablet] 30 mg PO DAILY Metformin HCl [Metformin ER Gastric] 1,000 mg PO BID Fenofibrate Nanocrystallized [Fenofibrate] 145 mg PO HS Empagliflozin [Jardiance] 10 mg PO DAILY Candesartan/Hydrochlorothiazid [Candesartan-Hctz 32-12.5 mg Tb] 1 tab PO DAILY Atorvastatin Calcium [Atorvastatin 20mg Tab] 20 mg PO HS Oseltamivir Phosphate [Tamiflu 75mg Capsule] 75 mg PO BID glyBURIDE [Diabeta 5mg tablet] 10 mg PO BID
== END 2018-08-12 10:52 | disposition home or self-care (01) | DRG 195 ==
LOC: ER 16:10 → 2ND 17:49
PROVIDERS: ADMIT Emergency Medicine; ATTEND Emergency Medicine
CPT/HCPCS: 36415; 71020; 71046; 71275; 80048; 80053; 80076; 82550; 82553; 82962; 83605; 84484; 85007; 85025; 86738; 87040; 87070; 87086; 87205; 93005; 93306; 94640; 94761; 96374; 99284; J0456

== ENCOUNTER → 2018-08-29 09:32 | Outpatient (CLI) | payer OTHER, SELFPAY ==
--- NOTE | 2018-08-29 17:24 | XR_ITS ---
XR chest 2V HISTORY: ITS.REASON: PNEUMONIA ORDERING PHYSICIAN: Jeevan Meléndez PATIENT AGE: 58 years Technique: PA and lateral chest COMPARISON: PA and lateral chest from 08/09/2018. CT chest 08/10/2018. FINDINGS: The previous pneumonia and atelectasis at the medial right lung base have shown improvement and partial clearing. Mild residual infiltrate here but overall significantly improved. Be minimal infiltrate at the left lung base, lingula on appears improved as well. Minimal residual atelectasis and scant infiltrate here may persist. The right yessi is less dense less pronounced. Also right peritracheal region appears satisfactory. Upper lung nettles are clear. Small 6 mm granuloma left lung apex again noted. No pleural effusion. Chest wall T-spine unremarkable. Borderline cardiomegaly.. Superior mediastinum unremarkable. IMPRESSION 1.The Bibasilar infiltrate & atelectasis seen best on 08/10/2017 CT & only vaguely evident on 08/09/2018 chest film has shown improvement. .. Improvement, with near complete clearing these bibasilar pneumonia on today's plain films ... Only Scant residual infiltrate & atelectasis infiltrate at medial right lung base .... Mild residual atelectasis lingula 2. . Borderline cardiomegaly.
== END ==
PROVIDERS: PCP Family Medicine; Visit Provider Family Medicine
DX: J18.9 Pneumonia, unspecified organism (principal)
CPT/HCPCS: 71046

== ENCOUNTER → 2018-10-18 07:48 | Outpatient (CLI) | payer OTHER, SELFPAY ==
--- NOTE | 2018-10-18 07:51 | CT_ITS ---
CT chest wo con HISTORY: Follow-up pneumonia/adenopathy/pulmonary nodule ITS.REASON: F/U 1.5 CM NODULE, EFFUSION BL ORDERING PHYSICIAN: Jeevan Melnédez PATIENT AGE: 58 years COMPARISON: 08/10/2018 Technique: Axial images obtained. Sagittal, and coronal reformatted images are also generated and reviewed. All CT scans at the facility use one or more dose reduction, viz: automated exposure control, ma/kV adjustment per patient size (including targeted exams where dose is matched to indication, i.e. head), or iterative reconstruction technique. FINDINGS: Normal heart size. There are coronary artery calcifications. Previously noted nodes in the mediastinum and right hilum are once again noted but do appear smaller and may be reactive in nature. There is evidence of old granulomatous disease. Right lower lobe consolidation has improved. There is a calcified granuloma in left upper lobe and lingula. No suspicious pulmonary nodules are evident. Previously noted parenchymal opacity in the left lung base has resolved. Atrophic changes are present involving the right kidney. No acute bony findings. IMPRESSION: Overall there is been improvement in the appearance of the chest with resolved right lower lobe pneumonia, resolved parenchymal opacity in the left lower lobe, and improvement in the mediastinal and hilar lymph nodes. Coronary artery calcification
== END ==
PROVIDERS: PCP Family Medicine; Visit Provider Family Medicine
DX: R91.1 Solitary pulmonary nodule (principal); J90 Pleural effusion, not elsewhere classified
CPT/HCPCS: 71250

== ENCOUNTER 2019-01-05 07:00 | Outpatient (RCR) | payer OTHER, SELFPAY ==
--- NOTE | 2018-11-18 11:05 | HMH.OTOPEV ---
OT Inpatient Evaluation Rehab OT Outpatient Eval Start: 11/18/18 10:32 Freq: Status: Active Protocol: Document 11/18/18 10:32 TFRY (Rec: 11/18/18 11:05 TFRY [id number]) Electronically Signed By Naila Harrison OT 11/18/18 10:32 Outpatient Therapy Subjective History Subjective History This is a 58 year old right handed female referred to occupational therapy for right shoulder pain. Patient reports that pain has been ongoing but got worse over the past 2 weeks. Patient is unable to recall doing anything to her shoulder. Patient reports being able to do everything for herself but has pain with activities. Chief Complaint Pain Symptom Type Ache,Sharp,Dull Symptoms Relieved By Rest/Positioning Symptoms Aggravated By Physical Activity Prior Functional Limitations None Current Functional Limitations None Symptom Description Activity Dependent Level of pain today (0-10) 4 Pain scale - at its best (0-10) 0 Pain scale - at its worst (0-10) 8 Shoulder/Elbow Eval Shoulder Objective Measurements Palpation Tenderness tenderness shoulder exam standard right Shoulder Palpation Findings Tenderness Shoulder Palpation Overall Comment Tenderness at right AC joint and in upper trap. Shoulder ROM Right Shoulder ROM Limitations Pain Shoulder Abduction Active Range of WFL Motion (degrees) Shoulder Flexion Active Range of Motion WFL (degrees) Query Text: Shoulder External Rotation Active Range WFL of Motion (degrees) Shoulder Internal Rotation Active Range WFL of Motion (degrees) Shoulder Extension Active Range of WFL Motion (degrees) pain with active ROM shoulder exam right standard full ROM shoulder exam standard right Shoulder MMT Shoulder Abduction Strength Grade 3+ Fair+ Shoulder Extension Strength Grade 4- Good- Shoulder Flexion Strength Grade 4- Good- Shoulder Horizontal Abduction Strength 3+ Fair+ Grade Shoulder Horizontal Adduction Strength 4- Good- Grade Shoulder External Rotation Strength 3+ Fair+ Grade Shoulder Internal Rotation Strength 3+ Fair+ Grade Shoulder Strength Patient Testing Sitting Position Shoulder Special Tests impingement sign present shoulder ex
== END 2019-01-05 07:05 | disposition home or self-care (01) ==
LOC: OT 07:00
PROVIDERS: Visit Provider Nurse Practitioner Family
DX: M25.511 Pain in right shoulder (principal)
CPT/HCPCS: 97014; 97110; 97140; 97165; G0283

== ENCOUNTER → 2019-04-13 15:33 | Outpatient (CLI) | payer OTHER, SELFPAY ==
--- NOTE | 2019-04-13 15:35 | MM_ITS ---
PROCEDURE: MM DIG SCREENING MAMM BI W/CAD Patient Age:59Y CLINICAL INDICATION: SCREENING 59-year-old postmenopausal female. No hormones, no new complaints. Noncontributory family history COMPARISON: [facility] DIG MAMM-SCREEN PATTY from 04/09/2016 [facility] DIG MAMM-SCREEN PATTY W/CAD from 04/06/2017 [facility] MM Dig screening mamm BI w/CAD from 04/05/2018 TECHNIQUE: Standard CC and MLO images were obtained. R2 CAD reviewed. FINDINGS: Low-density breast with diffuse fatty replacement-minimal residual fibroglandular elements. Mammography is more optimal screening tool in breast of this character. No new areas of concern. No dominant mass or suspicious calcifications.. CAD computer review highlights no significant areas of concern today either Bilateral follow-up 1 year recommended IMPRESSION: Stable bilateral mammogram. Bilateral follow-up 1 year recommended Diffuse fatty replacement, low-density breast BI-RAD Category: 1 Negative FOLLOW-UP: 1YR 1 Year Follow-up (A letter has been sent to the patient regarding results of the study.) Dictated by: Abhishek Florian MD 04/19/2019 10:12 Electronically signed by Abhishek Florian MD in [place] 04/19/2019 10:12
== END ==
PROVIDERS: PCP Family Medicine; Visit Provider Family Medicine
DX: Z12.31 Encounter for screening mammogram for malignant neoplasm of breast (principal)
CPT/HCPCS: 77067

== ENCOUNTER → 2019-05-18 20:03 | Outpatient (CLI) | payer OTHER, SELFPAY ==
--- NOTE | 2019-05-18 20:07 | XR_ITS ---
PROCEDURE: XR CHEST 2V CLINICAL HISTORY: COUGH COMPARISON: CXR2V XR chest 2V from 08/29/2018 FINDINGS: There is mild cardiomegaly without failure. The lungs are clear without infiltrates, suspicious nodules, or pleural effusions. No acute bony abnormalities. IMPRESSION: No change with no acute finding Dictated by: Ivan Meehan MD 05/18/2019 20:55 Electronically signed by Ivan Meehan MD in [place] 05/18/2019 20:55
== END ==
PROVIDERS: PCP Emergency Medicine; Visit Provider Emergency Medicine
DX: R05 Cough (principal)
CPT/HCPCS: 71046

== ENCOUNTER → 2019-08-11 17:03 | Outpatient (CLI) | payer OTHER, SELFPAY ==
--- NOTE | 2019-08-11 17:07 | XR_ITS ---
PROCEDURE: XR KNEE LT 4V CLINICAL INDICATION: left knee pain COMPARISON: No exams were available for comparison FINDINGS: No fracture or dislocation. No lytic or blastic change. There is normal mineralization. There are moderate osteoarthritic changes of the medial compartment and patellofemoral joint with mild osteoarthritis of the lateral compartment. There is mild lateral tibial translation of 4 mm. Prominent anterior spurs present at the tibial spine region. There is generalized vascular calcification Other findings:None. IMPRESSION: Osteoarthritis Dictated by: Ivan Meehan MD 08/11/2019 18:28 Electronically signed by Ivan Meehan MD in [place] 08/11/2019 18:28
== END ==
PROVIDERS: PCP Family Medicine; Visit Provider Orthopaedic Surgery
DX: M25.562 Pain in left knee (principal)
CPT/HCPCS: 73564

== ENCOUNTER → 2020-01-12 15:19 | Outpatient (CLI) | payer OTHER, SELFPAY ==
[2020-01-12 18:11] LABS: Coronavirus 19 IgG Antibody Negative (Negative); Coronavirus 19 IgM Antibody Negative (Negative)
== END ==
PROVIDERS: Visit Provider Nurse Practitioner Family
DX: Z20.828 Contact with and (suspected) exposure to other viral communicable diseases (principal)
CPT/HCPCS: 86328

== ENCOUNTER → 2020-02-05 09:39 | Outpatient (CLI) | payer OTHER, SELFPAY ==
--- NOTE | 2020-02-05 09:46 | XR_ITS ---
PROCEDURE: XR KNEE LT 4V CLINICAL INDICATION: left knee pain; fall Posttraumatic pain COMPARISON: CR XR KNEE LT 4V from 08/11/2019 FINDINGS: There are moderate osteoarthritic changes of the medial compartment with mild osteoarthritis of the patellofemoral joint. No acute fracture or dislocation. Small suprapatellar effusion is suspected in there is vascular calcification noted. IMPRESSION: Osteoarthritic changes, no acute fracture Dictated by: Ivan Meehan MD 02/05/2020 11:00 Ivan Meehan MD in [place] 02/05/2020 11:00
== END ==
PROVIDERS: PCP Family Medicine; Visit Provider Orthopaedic Surgery
DX: M25.562 Pain in left knee (principal); X19.XXXA Contact with other heat and hot substances, initial encounter
CPT/HCPCS: 73564

== ENCOUNTER → 2020-02-06 08:37 | Outpatient (CLI) | payer OTHER, SELFPAY ==
--- NOTE | 2020-02-06 08:38 | MR_ITS ---
PROCEDURE: MR KNEE LT WO CON CLINICAL INDICATION: evaluate for a patella fracture S/P fall 4 days ago with pain. Suspect patella fx Prior x ray left knee 02/05/2020 COMPARISON: CR XR KNEE LT 4V from 02/05/2020 TECHNIQUE: Routine multiplanar multi echo sequences are performed without gadolinium enhancement. FINDINGS: The cruciate ligaments, collateral ligaments, patellar tendon, and quadriceps tendon appear intact. There is severe osteoarthritic change of the medial compartment and patellofemoral joint and moderate osteoarthritic change of the lateral compartment. There is medial extrusion of the medial meniscus at the body portion of the meniscus. No obvious meniscal tear. Prominent osteophytes are present medially at the knee joint. There is a medium-sized suprapatellar effusion containing some debris. There is a prominent septated Levy's cyst measuring 7.8 cm cephalad caudad. There is some soft tissue edema in the subcutaneous tissues in the upper leg posteriorly. There is a thin linear area of increased T2 signal involving the anterior aspect of the patella. This is without surrounding edema and may represent an artifact as opposed to a nondisplaced hairline fracture. This is not redemonstrated on the coronal images. IMPRESSION: 1. Moderate to severe osteoarthritic changes with large Levy's cyst and knee joint effusion without obvious internal derangement. 2. Thin linear T2 hyperintensity involving the anterior aspect of the patella on the axial images possibly due to artifact not duplicated on the coronal images. Hairline fracture would be included in the differential diagnosis but felt to be less likely due to lack of surrounding edema Dictated by: Ivan Meehan MD 02/07/2020 12:11 Ivan Meehan MD in [place] 02/07/2020 12:11
== END ==
PROVIDERS: PCP Family Medicine; Visit Provider Orthopaedic Surgery
DX: M25.562 Pain in left knee (principal)
CPT/HCPCS: 73721

== ENCOUNTER → 2020-03-07 08:56 | Outpatient (CLI) | payer OTHER, SELFPAY ==
[2020-03-07 08:59] LABS: Microscopic, Urine URINE MICROSCOPIC (MICROSCOPIC)
[2020-03-07 09:26] LABS: Appearance,Urine CLEAR (Clear); Bilirubin,Urine Negative (Negative); Blood, Urine Negative (Negative); Color,Urine YELLOW (Yellow); Glucose,Urine (UA) Negative (Negative); Ketones,Urine Negative (Negative); Leukocyte Esterase,Urine 1+ (Negative); Nitrate,Urine Negative (Negative); PH,Urine 6.5 (5.0-8.5); Protein,Urine 1+ (Negative); Urobilinogen,Urine 0.2 EU/dl (0.2)
[2020-03-07 09:46] LABS: Bacteria,Urine Trace /lpf
[2020-03-07 20:03] LABS: 25-OH Vitamin D, Total 45.2 ng/mL (30-100)
== END ==
PROVIDERS: Visit Provider Family Medicine
DX: Z00.00 Encounter for general adult medical examination without abnormal findings (principal)
CPT/HCPCS: 36415; 80053; 81001; 82306; 84439; 87086

== ENCOUNTER → 2020-04-01 13:01 | Outpatient (CLI) | payer OTHER, SELFPAY ==
[2020-04-01 13:15] LABS: Chloride 103 mmol/L (98-107)
[2020-04-01 13:16] LABS: Potassium 3.8 mmoL/L (3.5-5.1); Sodium 143 mmol/L (136-145)
[2020-04-01 13:18] LABS: Blood Urea Nitrogen 20 mg/dl (7-17); Estimated Glomerular Filt Rate 42 ml/min (>60); GFR (African American) 50 ML/MIN (>60)
[2020-04-01 13:19] LABS: Anion Gap 13.8 mEq/L (5-15); Calcium 10.2 mg/dl (8.4-10.2); Carbon Dioxide 30 mmol/L (22.0-30.0); Glucose 221 mg/dl (74-100)
== END ==
PROVIDERS: Visit Provider Family Medicine
DX: E87.6 Hypokalemia (principal)
CPT/HCPCS: 36415; 80048

== ENCOUNTER → 2020-04-02 10:58 | Outpatient (CLI) | payer OTHER, SELFPAY ==
--- NOTE | 2020-04-02 11:03 | MM_ITS ---
PROCEDURE: MM DIG SCREENING MAMM BI W/CAD Digital Breast Tomosynthesis Included CLINICAL INDICATION: SCREENING There is no personal or family history of breast cancer. COMPARISON: MG [facility] DIG MAMM-SCREEN PATTY W/CAD from 04/06/2017 [facility] MM Dig screening mamm BI w/CAD from 04/05/2018 MG MM DIG SCREENING MAMM BI W/CAD from 04/13/2019 TECHNIQUE: Standard CC and MLO images and 3D Tomosynthesis was obtained. R2 CAD reviewed. FINDINGS: Mild diffuse scattered fibroglandular densities are seen in both breasts on a background of fatty breast parenchyma. There are few scattered benign-appearing microcalcifications in each breast. There is a mole marker near the axillary tail of each breast. There is no suspicious lesion in either breast and no suspicious microcalcifications. IMPRESSION: Fibrofatty parenchyma with no suspicious lesions seen BI-RAD Category: 2 Benign Finding(s) FOLLOW-UP: 1YR 1 Year Follow-up (A letter has been sent to the patient regarding results of the study.) Dictated by: Dr. Lam Mcdaniel MD 04/02/2020 12:48 Dr. Lam Mcdaniel MD in [place] 04/02/2020 12:48
== END ==
PROVIDERS: PCP Family Medicine; Visit Provider Family Medicine
DX: Z12.31 Encounter for screening mammogram for malignant neoplasm of breast (principal)
CPT/HCPCS: 77063; 77067

== ENCOUNTER → 2020-08-06 09:27 | Outpatient (CLI) | payer OTHER, SELFPAY ==
[2020-08-06 09:36] LABS: Microscopic, Urine URINE MICROSCOPIC (MICROSCOPIC)
[2020-08-06 10:06] LABS: Appearance,Urine CLEAR (Clear); Basophils # 0.1 K/mm3 (0-0.2); Basophils % 0.8 % (0.1-2.0); Bilirubin,Urine Negative (Negative); Blood, Urine Negative (Negative); Color,Urine YELLOW (Yellow); Eosinophils # 0.2 K/mm3 (0.0-0.4); Eosinophils % 2.4 % (0.1-12.0); Glucose,Urine (UA) Negative (Negative); Hematocrit 41.1 % (37.0-47.0); Hemoglobin 13.2 g/dL (12.2-16.2); Ketones,Urine Negative (Negative); Leukocyte Esterase,Urine Negative (Negative); Lymphocytes # 2.7 K/mm3 (0.7-4.5); Lymphocytes % 27.8 % (10-50); Mean Corpuscular HGB Conc 32.1 g/dL (31.8-35.4); Mean Corpuscular Hemoglobin 31.9 pg (27.0-31.2); Mean Corpuscular Volume 99.2 fl (81-99); Mean Platelet Volume 9.3 fl (7.4-10.4); Monocytes # 0.5 K/mm3 (0.1-1.0); Monocytes % 5.6 % (1.7-9.3); Neutrophils # 6.1 K/mm3 (1.8-7.8); Neutrophils % 63.4 % (37.0-80.0); Nitrate,Urine Negative (Negative); PH,Urine 6.5 (5.0-8.5); Platelet Count 173 K/mm3 (142-424); Protein,Urine 1+ (Negative); Red Blood Count 4.14 M/mm3 (4.20-5.40); Red Cell Distribution Width 13.5 % (11.5-17.5); Urobilinogen,Urine 0.2 EU/dl (0.2); White Blood Count 9.6 K/mm3 (4.8-10.8)
[2020-08-06 10:12] LABS: Creatinine,Urine Random 15 mg/dL (Not Estab.)
[2020-08-06 10:31] LABS: Microalbumin/Creatinine Ratio 1932.6
[2020-08-06 10:37] LABS: Chloride 105 mmol/L (98-107); Potassium 4.7 mmoL/L (3.5-5.1); Sodium 141 mmol/L (136-145)
[2020-08-06 10:40] LABS: Alanine Aminotransferase 40 U/L (12-78); Albumin Level 4.5 g/dl (3.5-5.0); Albumin/Globulin Ratio 1.4 (1.1-1.8); Alkaline Phosphatase 50 U/L (38-126); Anion Gap 9.7 mEq/L (5-15); Aspartate Amino Transferase 52 U/L (14-36); Bilirubin,Total 0.4 mg/dl (0.2-1.3); Blood Urea Nitrogen 19 mg/dl (7-17); Carbon Dioxide 31 mmol/L (22.0-30.0); Cholesterol 178 mg/dl (140-200); Estimated Glomerular Filt Rate 63 ml/min (>60); GFR (African American) 77 ML/MIN (>60); Globulin 3.3 g/dL (1.3-3.2); Total Protein,Serum 7.8 g/dl (6.3-8.2); Triglycerides 190 mg/dl (30-150); VLDL Cholesterol 38 mg/dL (0-40)
[2020-08-06 10:41] LABS: Calcium 10.6 mg/dl (8.4-10.2); Glucose 117 mg/dl (74-100); HDL Cholesterol 54 mg/dl (40-60)
[2020-08-06 10:51] LABS: Direct LDL Cholesterol 79.87 mg/dL (100-129)
[2020-08-06 11:10] LABS: Free T4 (Free Thyroxine) 0.86 ng/dl (0.78-2.19)
[2020-08-06 11:11] LABS: Thyroid Stimulating Hormone 2.28 uIU/mL (0.465-4.68)
[2020-08-06 12:42] LABS: Chol/HDL Ratio 3.3 (1-3.5)
== END ==
PROVIDERS: Visit Provider Family Medicine
DX: Z00.00 Encounter for general adult medical examination without abnormal findings (principal); I10 Essential (primary) hypertension; E11.9 Type 2 diabetes mellitus without complications; R53.83 Other fatigue; Z79.84 Long term (current) use of oral hypoglycemic drugs; Z79.899 Other long term (current) drug therapy
CPT/HCPCS: 36415; 80053; 80061; 81001; 82043; 82570; 84439; 84443; 85025

== ENCOUNTER → 2021-03-03 08:27 | Outpatient (CLI) | payer OTHER, SELFPAY | PROVIDERS: PCP Family Medicine; Visit Provider Nurse Practitioner | DX: Z20.822 Contact with and (suspected) exposure to COVID-19 (principal); U07.1 COVID-19 | CPT/HCPCS: C9803; U0003; U0005 ==

== ENCOUNTER 2021-03-03 13:50 | Outpatient (CLI) | payer OTHER, SELFPAY ==
[2021-03-03 14:50] VITALS: BP 160/76; PULSE 77; RESP 20; TEMP 37.6; O2SAT 91
[2021-03-03 15:20] VITALS: BP 161/74; PULSE 87; RESP 20; O2SAT 94
[2021-03-03 16:30] VITALS: BP 190/77; PULSE 85; RESP 20; O2SAT 93
== END 2021-03-03 16:30 | disposition home or self-care (01) ==
LOC: INF 13:51
PROVIDERS: PCP Family Medicine; Visit Provider Internal Medicine
DX: U07.1 COVID-19 (principal)
CPT/HCPCS: 96365

== ENCOUNTER 2021-03-05 11:30 | Emergency (ER) | payer OTHER, SELFPAY ==
[2021-03-05] VITALS (10 sets, daily range): BP systolic 123–174; BP diastolic 54–71; PULSE 67–89; RESP 18–22; TEMP 36.6–38.7; O2SAT 62–94; BMI 42.0
--- NOTE | 2021-03-05 11:46 | XR_ITS ---
PROCEDURE: XR CHEST PORTABLE CLINICAL HISTORY: cough COMPARISON: CR CXR2V XR chest 2V from 08/09/2018 DX CXR2V XR chest 2V from 08/29/[address] chest wo con from 10/18/2018 CR XR CHEST 2V from 05/18/2019 FINDINGS: There is cardiomegaly. No definite CHF. Mild thickening of the right minor fissure which may be due to an area of atelectasis or pleural thickening. No lobar consolidation or collapse. No acute bony abnormalities. IMPRESSION: Minimal atelectatic change versus right minor fissure pleural thickening with cardiomegaly Dictated by: Ivan Meehan MD 03/05/2021 12:10 Ivan Meehan MD in [place] 03/05/2021 12:10
[2021-03-05 11:52] LABS: Basophils # 0.1 K/mm3 (0-0.2); Basophils % 0.8 % (0.1-2.0); Eosinophils % 0.1 % (0.1-12.0); Hematocrit 39.3 % (37.0-47.0); Hemoglobin 12.4 g/dL (12.2-16.2); Lymphocytes # 2.5 K/mm3 (0.7-4.5); Lymphocytes % 30.7 % (10-50); Mean Corpuscular HGB Conc 31.6 g/dL (31.8-35.4); Mean Corpuscular Hemoglobin 31.7 pg (27.0-31.2); Mean Corpuscular Volume 100.4 fl (81-99); Mean Platelet Volume 10.2 fl (7.4-10.4); Monocytes # 0.4 K/mm3 (0.1-1.0); Monocytes % 5.2 % (1.7-9.3); Neutrophils # 5.1 K/mm3 (1.8-7.8); Neutrophils % 63.3 % (37.0-80.0); Platelet Count 158 K/mm3 (142-424); Red Blood Count 3.91 M/mm3 (4.20-5.40); Red Cell Distribution Width 14.3 % (11.5-17.5); White Blood Count 8.1 K/mm3 (4.8-10.8)
[2021-03-05 11:55] LABS: Chloride 101 mmol/L (98-107)
[2021-03-05 11:56] LABS: Potassium 4.7 mmoL/L (3.5-5.1); Sodium 138 mmol/L (136-145)
--- NOTE | 2021-03-05 11:57 | PC.NURSE ---
rad at [facility]
[2021-03-05 11:58] LABS: Alanine Aminotransferase 45 U/L (12-78); Alkaline Phosphatase 48 U/L (38-126); Aspartate Amino Transferase 77 U/L (14-36); Bilirubin,Total 0.2 mg/dl (0.2-1.3); Blood Urea Nitrogen 33 mg/dl (7-17); Creatinine Clearance Estimated 33 mL/min (50-200); Estimated Glomerular Filt Rate 38 ml/min (>60); GFR (African American) 46 ML/MIN (>60)
[2021-03-05 11:59] LABS: Albumin Level 3.8 g/dl (3.5-5.0); Albumin/Globulin Ratio 1.2 (1.1-1.8); Anion Gap 14.7 mEq/L (5-15); Calcium 9.3 mg/dl (8.4-10.2); Carbon Dioxide 27 mmol/L (22.0-30.0); Globulin 3.3 g/dL (1.3-3.2); Glucose 136 mg/dl (74-100); Total Protein,Serum 7.1 g/dl (6.3-8.2)
--- NOTE | 2021-03-05 12:18 | CT_ITS ---
PROCEDURE: CT ANGIO CHEST PE PROTOCOL CLINCIAL INDICATION: short of breath, covid COMPARISON: CT AGCHEST CT angio chest from 08/10/[address] chest wo con from 10/18/2018 TECHNIQUE: IV Contrast: 70ML Isovue 370 Axial images obtained with sagittal and coronal reformats. All CT scans at the facility use one or more dose reduction, viz: automated exposure control, ma/kV adjustment per patient size (including targeted exams where dose is matched to indication, i.e. head), or iterative reconstruction technique. FINDINGS: HEART AND MEDIASTINAL STRUCTURES: Cardiomegaly. No evidence of aortic aneurysm or pulmonary embolus. There are few mildly prominent mediastinal and lymph nodes which may be reactive. Coronary artery calcifications and/or stents noted. LUNGS AND PLEURAL SPACES: Multifocal areas of ground-glass infiltrates noted with associated atelectatic changes with coarsening of the interstitial markings in a background of COPD and centrilobular emphysema. No evidence of pneumothorax. Trace bilateral effusions.. BONY STRUCTURES: Degenerative changes thoracic spine with endplate osteophytes UPPER ABDOMEN: Mildly prominent lymph nodes are present in the periportal region and epigastric area. Atrophic changes are present involving the right kidney. Probable small left renal cyst incompletely imaged ADDITIONAL FINDINGS: No other significant abnormalities. IMPRESSION: 1. Findings compatible with Covid19 pneumonia as described above with trace effusions. 2. No evidence of pulmonary embolus. 3. Mildly prominent mediastinal, periportal, and epigastric lymph nodes not significantly changed Dictated by: Ivan Meehan MD 03/05/2021 13:55 Ivan Meehan MD in [place] 03/05/2021 13:55
[2021-03-05 12:19] LABS: Troponin I 1.23 ng/ml (0.00-0.034)
--- NOTE | 2021-03-05 12:24 | ECG_ITS ---
APPROVED REPORT Exam: Resting ECG HR:87 bpm ECG Measurements Heart Rate 87 AXES VA 168 P 56 QRSd 82 QRS -3 QT 354 T 29 QTc 425 Conclusion Normal sinus rhythm Possible Left atrial enlargement Low voltage QRS RSR' or QR pattern in V1 suggests right ventricular conduction delay Septal infarct, age undetermined Abnormal ECG Electronically signed by : Abdulaziz Rosario MD 03/06/2021 17:29:06
--- NOTE | 2021-03-05 12:51 | CA_ITS ---
APPROVED REPORT EXAM: Comprehensive 2D, Doppler, and color-flow Echocardiogram Lan Specialist: Graciela Obando CRT Ht: 5 ft 2 in Wt: 230lbs BSA: 2.03 BP: 144/72 mmHg Indications: Covid +, Shortness of Breath, Diabetes, Obesity, Hyperlipidemia, Hypertension/HDD 2D Dimensions LVOT 1.92 cm (M/F) 1.5-2.5 LA Volume 33.40 mL LA Volume Index 16.50 mL/m2 (M/F) 16-34 M-Mode Dimensions RVDd 2.61 cm (0.9-2.6) LA Diam 3.72 cm (1.9-4.0) LVDd 4.69 cm (3.5-5.7) Ao Diam 3.91 cm (2.0-3.7) LVDs 2.84 cm (3.5-5.7) IVSd 1.97 cm (0.6-1.1) PWd 0.95 cm (0.6-1.1) EF (Teich) 70.00% FS 39.40% EDV (Teich) 101.90 mL ESV (Teich) 30.60 mL LV Diastology E Decel Time 283.00 (160-240 msec) E/A Ratio 1.00 MED E' 5.70 (< 7 cm/sec) MED A' 9.40 cm/s E'/MED E' Ratio 24.75 (>14) LAT E' 7.60 (<10 cm/sec) LAT A' 12.80 cm/s E/LAT E' Ratio 18.57 (>14) Aortic Valve AO Peak GR. 7.30 mmHg Mitral Valve MV E Max Codey. 141.00 (40-130 cm/s) MV A Velocity 141.00 (40-130 cm/s) E/A Ratio 1.00 MV Decel. Time 283.00 (160-240 ms) MV PHT 83.00 ms Pulmonary Valve PV Peak Velocity 94.00 (50-150 cm/s) Tricuspid Valve TR P. Velocity 132.00 cm/s RAP Estimate 10.00 mmHg RVSP 17.00 mmHg Left Ventricle Left atrium is mildly enlarged, left ventricle is normal size, mild concentric left ventricular hypertrophy, visually estimated ejection fraction 55 to 60% with no regional wall motion abnormality, grade 1 diastolic dysfunction seen with tissue Doppler evidence of raise left atrial pressure. Right Ventricle Right atrium and right ventricle qualitatively mildly enlarged with normal contractility. Aortic Valve Aortic valve is minimally thickened and fibrosed, there is no aortic stenosis or aortic insufficiency. Mitral Valve Mitral valve grossly normal, there is trace mitral regurgitation. Tricuspid Valve Tricuspid valve grossly normal, there is trace tricuspid regurgitation, tricuspid regurgitation jet velocity is inadequate for calculation of the right ventricular systolic pressure. Pulmonic Valve Pulmonic valve is poorly visualized. Great Vessels Aortic root is normal size. Inferior vena cava is poorly visualized. Pericardium No significant pericardial effusion noted. Conclusion 1. Technically difficult study because of the patient factors and poor acoustic windows. 2. Mild biatrial abdomen, normal left ventricular size, mild concentric left ventricular hypertrophy, visually estimated ejection fraction 55% with no regional wall motion abnormality, grade 1 diastolic dysfunction seen with tissue Doppler evidence of raise left atrial pressure. 3. Trace mitral and tricuspid regurgitation. 4. No significant pericardial effusion noted Electronically signed by : Jude Souza MD 03/06/2021 10:50:06
--- NOTE | 2021-03-05 13:00 | HMH.EDGENADL ---
ED Disposition Clinical Impression: Pneumonia due to COVID-19 virus, Acute respiratory failure with hypoxia Disposition: Home, Self-Care Condition on Discharge: Fair Instructions: DI for COVID-19 (Suspected or Confirmed ) Prescriptions: dexAMETHasone [Dexamethasone] 2 mg PO ONCE #5 tab Transmission Status: Pending to [facility] Referrals: Jeevan Meléndez [Primary Care Provider] - - Critical Care Critical Care Time: No Attestation: On 03/05/21, the high probability of a clinically significant, sudden or life threatening deterioration of the following system(s) required my full and direct attention, intervention and personal management. The time I documented below is in addition to time spent performing reported procedures but includes the following listed in this critical care notation. Medical Decision Making - Medical Records Medical records reviewed: Yes: I reviewed the patient's medical records. - Chaitanya Inquiry Pt receiving controlled substance: No Vital Signs: 03/05/21 11:31 03/05/21 12:15 03/05/21 12:30 Temperature 101.6 F H Temperature Source Oral Pulse Rate 86 84 Pulse Rate [Right Radial] 89 Respiratory Rate 22 18 Blood Pressure 138/69 145/66 H Blood Pressure [Right Arm] 174/71 H Blood Pressure Mean 106 Blood Pressure Mean [Right Arm] 105 Blood Pressure Source [Right Arm] Automatic Cuff Blood Pressure Position [Right Arm] Sitting 02 Sat by Pulse Oximetry 62 L 91 L 91 L Oxygen Delivery Method Room Air 03/05/21 13:00 03/05/21 14:30 03/05/21 15:00 Temperature Temperature Source Pulse Rate 87 73 71 Pulse Rate [Right Radial] Respiratory Rate 18 18 Blood Pressure 123/59 L 128/62 124/64 Blood Pressure [Right Arm] Blood Pressure Mean 97 Blood Pressure Mean [Right Arm] Blood Pressure Source [Right Arm] Blood Pressure Position [Right Arm] 02 Sat by Pulse Oximetry 91 L 93 L 91 L Oxygen Delivery Method - Lab Data Lab Results 03/05/21 11:40: WBC 8.1, RBC 3.91 L, Hgb 12.4, Hct 39.3, MCV 100.4 H, MCH 31.7 H, MCHC 31.6 L, RDW 14.3, Plt Count 158, MPV 10.2, Neut % (Auto) 63.3, Lymph % (Auto) 30.7, Cascade % (Auto) 5.2, Eos % (Auto) 0.1, Baso % (Auto) 0.8, Neut # (Auto) 5.1, Lymph # (Auto) 2.5, Cascade # (Auto) 0.4, Eos # (Auto) 0.0, Baso # (Auto) 0.1 03/05/21 11:40: Sodium 138, Potassium 4.7, Chloride 101, Carbon Dioxide 27, Anion Gap 14.7, BUN 33 H, Creatinine 1.40 H, Estimated Creat Clear 33, Estimated GFR 38 L, Est GFR ( Amer) 46 L, Glucose 136 H, Calcium 9.3, Total Bilirubin 0.2, AST 77 H, ALT 45, Alkaline Phosphatase 48, Troponin I 1.23 H, Total Protein 7.1, Albumin 3.8, Globulin 3.3 H, Albumin/Globulin Ratio 1.2 Result diagrams: 03/05/21 11:40 03/05/21 11:40 Orders (Tests/Meds): ED MEDICATIONS Generic Name Dose Route Start Last Admin Trade Name Frelaz PRN Reason Stop Dose Admin Sodium Chloride 10 ml 03/05/21 13:26 03/05/21 13:27 Sodium Chloride 0.9% 10ml Syr (Rad Only) IV 04/04/21 13:25 10 ml NEEDED PRN Administration Maintain IV Site Discontinued Medications Generic Name Dose Route Start Last Admin Trade Name Freq PRN Reason Stop Dose Admin Acetaminophen 1,000 mg 03/05/21 12:09 03/05/21 12:13 Acetaminophen 500mg Tab PO 03/05/21 12:10 1,000 mg ONCE ONE Administration Dexamethasone Sodium Phosphate 10 mg 03/05/21 11:46 03/05/21 12:13 Dexamethasone 4mg/Ml 5ml Mdv IV 03/05/21 11:47 10 mg ONCE ONE Administration Sodium Chloride 1,000 mls @ 999 mls/hr 03/05/21 12:30 03/05/21 12:53 Sod Chlor 0.9% 1000ml Bag IV 03/05/21 13:30 999 mls/hr .Q1H1M HOMERO Administration Iopamidol 70 ml 03/05/21 13:26 03/05/21 13:27 Iopamidol-370 (76%);100ml Bottle IV 03/05/21 13:27 70 ml ONCE ONE Administration Ketorolac Tromethamine 30 mg 03/05/21 11:47 03/05/21 12:13 Ketorolac 30mg/Ml Vial IV 03/05/21 11:48 30 mg ONCE ONE Administration Sodium Chloride 50 ml 02/13
--- NOTE | 2021-03-05 13:15 | PC.NURSE ---
Pt to rad.
--- NOTE | 2021-03-05 13:31 | PC.NURSE ---
pt return from CT
--- NOTE | 2021-03-05 13:33 | PC.NURSE ---
CV lab staff at
--- NOTE | 2021-03-05 15:20 | PC.NURSE ---
contacted care management to arrange home oxygen for pt.
--- NOTE | 2021-03-05 15:33 | CARE MANAGER ---
Received call from ER (Maddi Dior) stated patient needed home oxygen set up for home. Order, demographics and ER note faxed to [facility]. Called and spoke with Taylor Ochoa who states portable tank will be brought up to the ER this evening. This information was forwarded to ANN MARIE Linda.
[2021-03-05 15:35] LABS: Troponin I 1.17 ng/ml (0.00-0.034)
== END 2021-03-05 16:29 | disposition home or self-care (01) ==
PROVIDERS: Emergency Provider Emergency Medicine; PCP Family Medicine
DX: J96.01 Acute respiratory failure with hypoxia (principal); U07.1 COVID-19; J12.82 Pneumonia due to coronavirus disease 2019; E11.9 Type 2 diabetes mellitus without complications; E78.5 Hyperlipidemia, unspecified; I10 Essential (primary) hypertension; Z87.891 Personal history of nicotine dependence; Z79.899 Other long term (current) drug therapy
CPT/HCPCS: 36415; 71045; 71275; 80053; 84484; 85025; 93005; 93306; 96365; 96375; 99282; Q9967

== ENCOUNTER → 2021-04-01 11:34 | Outpatient (CLI) | payer OTHER, SELFPAY ==
--- NOTE | 2021-04-01 11:38 | XR_ITS ---
PROCEDURE: XR CHEST 2V CLINICAL HISTORY: COVID COMPARISON: DX CXR2V XR chest 2V from 08/29/2018 CR XR CHEST 2V from 05/18/[address] ANGIO CHEST PE PROTOCOL from 03/05/2021 CR XR CHEST PORTABLE from 03/05/2021 FINDINGS: Cardiomegaly without failure. There is a small faint area of increased density in the left upper lobe centrally which could be due to small area of infiltrate or atelectatic change. No acute bony abnormalities. IMPRESSION: Cardiomegaly. Small area of infiltrate or atelectatic change in the left upper lobe Dictated by: Ivan Meehan MD 04/01/2021 11:54 Ivan Meehan MD in [place] 04/01/2021 11:54
[2021-04-01 12:26] LABS: D-Dimer 0.66 ug/mL (0.0-0.5)
[2021-04-01 13:00] LABS: C-Reactive Protein 3.2 mg/L (0-4)
== END ==
PROVIDERS: PCP Family Medicine; Visit Provider Internal Medicine Pulmonary Disease
DX: R06.00 Dyspnea, unspecified (principal); J44.9 Chronic obstructive pulmonary disease, unspecified; I26.99 Other pulmonary embolism without acute cor pulmonale
CPT/HCPCS: 36415; 71046; 85378; 86140

== ENCOUNTER → 2021-04-03 16:28 | Outpatient (CLI) | payer OTHER, SELFPAY ==
--- NOTE | 2021-04-03 16:30 | MM_ITS ---
PROCEDURE: MM DIG SCREENING MAMM BI W/CAD Digital Breast Tomosynthesis Included CLINICAL INDICATION: SCREENING There is no personal or family history of breast cancer. COMPARISON: MG [facility] MM Dig screening mamm BI w/CAD from 04/05/2018 MG MM DIG SCREENING MAMM BI W/CAD from 04/13/2019 MG MM DIG SCREENING MAMM BI W/CAD from 04/02/2020 TECHNIQUE: Standard CC and MLO images and 3D Tomosynthesis was obtained. R2 CAD reviewed. FINDINGS: Mild diffuse scattered fibroglandular densities are seen throughout both breast and the findings are bilateral and symmetrical. There are couple of benign-appearing microcalcifications in each breast. There is a mole marker on each breast. There is no new or suspicious lesion in either breast and no suspicious microcalcifications. IMPRESSION: Fibrofatty parenchyma with no suspicious lesions seen BI-RAD Category: 2 Benign Finding(s) FOLLOW-UP: 1YR 1 Year Follow-up (A letter has been sent to the patient regarding results of the study.) Dictated by: Dr. Lam Mcdaniel MD 04/09/2021 09:36 Dr. Lam Mcdaniel MD in [place] 04/09/2021 09:36
== END ==
PROVIDERS: PCP Family Medicine; Visit Provider Family Medicine
DX: Z12.31 Encounter for screening mammogram for malignant neoplasm of breast (principal); R06.09 Other forms of dyspnea; Z86.16 Personal history of COVID-19
CPT/HCPCS: 77063; 77067; 94762

== ENCOUNTER 2021-05-06 13:56 | Outpatient (RCR) | payer OTHER, SELFPAY | END 2021-05-22 13:59 | disposition home or self-care (01) | LOC: PT 13:56 | PROVIDERS: Visit Provider Internal Medicine Pulmonary Disease | DX: R06.02 Shortness of breath (principal); Z86.16 Personal history of COVID-19 | CPT/HCPCS: G0237; G0238 ==

== ENCOUNTER → 2021-06-18 11:29 | Outpatient (CLI) | payer OTHER, SELFPAY | PROVIDERS: PCP Internal Medicine Pulmonary Disease; Visit Provider Internal Medicine Pulmonary Disease | DX: R06.09 Other forms of dyspnea (principal); R53.83 Other fatigue; G47.34 Idiopathic sleep related nonobstructive alveolar hypoventilation; R94.2 Abnormal results of pulmonary function studies; Z86.16 Personal history of COVID-19 | CPT/HCPCS: 94762 ==

== ENCOUNTER → 2021-06-30 15:30 | Outpatient (CLI) | payer OTHER, SELFPAY | PROVIDERS: PCP Family Medicine; Visit Provider Internal Medicine Pulmonary Disease | DX: G47.34 Idiopathic sleep related nonobstructive alveolar hypoventilation (principal); G47.33 Obstructive sleep apnea (adult) (pediatric) | CPT/HCPCS: 95806 ==

== ENCOUNTER → 2021-08-27 19:43 | Outpatient (CLI) | payer OTHER, SELFPAY | PROVIDERS: PCP Family Medicine; Visit Provider Nurse Practitioner Family | DX: G47.33 Obstructive sleep apnea (adult) (pediatric) (principal); I10 Essential (primary) hypertension; J44.9 Chronic obstructive pulmonary disease, unspecified; E66.9 Obesity, unspecified; Z68.41 Body mass index [BMI] 40.0-44.9, adult; U09.9 Post COVID-19 condition, unspecified | CPT/HCPCS: 95811 ==

== ENCOUNTER → 2021-10-06 16:37 | Outpatient (CLI) | payer OTHER, SELFPAY ==
--- NOTE | 2021-10-06 16:40 | XR_ITS ---
PROCEDURE INFORMATION: Exam: XR Left Hip Exam date and time: 10/06/2021 4:12 PM Age: 61 years old Clinical indication: Hip pain; Left hip TECHNIQUE: Imaging protocol: XR Left hip. Views: 2 or 3 views hip with pelvis when performed. COMPARISON: No relevant prior studies available. FINDINGS: Moderate osteoarthritis of the left hip joint, as manifested by decreased joint space, subchondral sclerosis, and subchondral cyst formation. Mild osteoarthritis of the right hip joint, as manifested by decreased joint space, subchondral sclerosis, and marginal osteophyte formation. Enthesophytes in the bilateral iliac crests. Mild degenerative changes of the bilateral sacroiliac joints. No acutely displaced fracture or dislocation. No aggressive osseous lesion. No significant soft tissue swelling. IMPRESSION: 1. Mild right and moderate left hip osteoarthritis. 2. No acute skeletal pathology.
--- NOTE | 2021-10-06 16:40 | XR_ITS ---
PROCEDURE INFORMATION: Exam: XR Left Knee Exam date and time: 10/06/2021 4:12 PM Age: 61 years old Clinical indication: Pain; Knee; Left; Additional info: Left lateral knee pain TECHNIQUE: Imaging protocol: XR Left knee. Views: 4 or more views. COMPARISON: MR KNEE LT WO CON 02/06/2020 8:48 AM FINDINGS: Severe osteoarthritis at the medial tibiofemoral compartment with bone on bone articulation. Moderate osteoarthritis in the patellofemoral compartment, and mild osteoarthritis in the lateral tibiofemoral compartment. No fracture, dislocation, or aggressive osseous lesion. No joint effusion. No significant soft tissue swelling. Moderate arterial calcific atherosclerotic disease. IMPRESSION: 1. Severe osteoarthritis in the medial tibiofemoral compartment with bone on bone articulation. 2. Moderate patellofemoral compartment osteoarthritis. 3. No acute skeletal pathology.
== END ==
PROVIDERS: Visit Provider Orthopaedic Surgery
DX: M25.552 Pain in left hip (principal); M25.562 Pain in left knee
CPT/HCPCS: 73502; 73564

== ENCOUNTER 2021-11-13 09:30 | Outpatient (RCR) | payer OTHER, SELFPAY ==
--- NOTE | 2021-10-28 13:36 | HMH.PTOPEV ---
PT Outpatient Evaluation Rehab PT Outpatient Evaluation Start: 10/28/21 11:06 Freq: Status: Active Protocol: Document 10/28/21 11:06 JESSICA (Rec: 10/28/21 13:35 JESSICA [id number]) Electronically Signed By Briana Mueller PT 10/28/21 11:06 Outpatient Therapy Subjective History Subjective History Pt is a 61 y/o female that reports gradual onset of left hip/knee pain 2-3 years ago. Pt reports she had radiographs showing osteoarthritis of the left hip and medial knee joint. She reports she had a choice of surgery/injections or exercise/medicine and would like to avoid surgery. Pt reports taking OTC arthritis medicine twice a day and wears a knee sleeve which helps pain. Pt reports ability to only walk/stand <5 minutes without increased pain and has to use a step to pattern on stairs. Pt denies change in balance or recent falls. Pt states the MD recommended she use her straight cane but she doesn't feel she needs it. Comorbidities: diabetes/ hypertension and uses 2L O2 at night. Pt repors the MD recommended she use a straight cane. 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 [employer] Chief Complaint Pain,Stiff Symptom Type Ache,Dull Symptoms Relieved By Ice,Brace/Support,OTC Meds Symptoms Aggravated By Bending/Stooping,Walking Prior Functional Limitations None Current Functional Limitations Standing,Squatting,Walking, Stairs Symptom Description Constant but Variable Level of pain today (0-10) 3 Pain scale - at its best (0-10) 1 Pain scale - at its worst (0-10) 8 Hip/Knee Eval Gait Observation General Gait Pattern Observation Antalgic Gait,Wide Based Gait, Decrease Weight Bear (L) Assistive Device Assistive Devices None / NA Palpation Tenderness left Knee Palpation Finding Tenderness Knee Palpation Overall Comment joint line, distal hamstring tendon, greater trochanter Hip Palpation Findings Tenderness
== END 2021-11-13 09:35 | disposition home or self-care (01) ==
LOC: PT 09:30
PROVIDERS: PCP Family Medicine; Visit Provider Orthopaedic Surgery
DX: M25.562 Pain in left knee (principal); M25.552 Pain in left hip
CPT/HCPCS: 97010; 97014; 97033; 97035; 97110; 97140; 97163; 97535; G0283

== ENCOUNTER → 2021-12-01 14:50 | Outpatient (CLI) | payer OTHER, SELFPAY | PROVIDERS: Visit Provider Nurse Practitioner Family | DX: G47.33 Obstructive sleep apnea (adult) (pediatric) (principal); G47.34 Idiopathic sleep related nonobstructive alveolar hypoventilation; I10 Essential (primary) hypertension | CPT/HCPCS: 94762 ==

== ENCOUNTER → 2022-03-19 07:03 | Outpatient (CLI) | payer OTHER, SELFPAY ==
[2022-03-19 07:37] LABS: Basophils # 0.1 K/mm3 (0-0.2); Basophils % 1.5 % (0.1-2.0); Eosinophils # 0.2 K/mm3 (0.0-0.4); Eosinophils % 2.5 % (0.1-12.0); Hematocrit 42.3 % (37.0-47.0); Hemoglobin 13.7 g/dL (12.2-16.2); Lymphocytes # 2.3 K/mm3 (0.7-4.5); Lymphocytes % 27.8 % (10-50); Mean Corpuscular HGB Conc 32.5 g/dL (31.8-35.4); Mean Corpuscular Volume 101.5 fl (81-99); Monocytes # 0.5 K/mm3 (0.1-1.0); Monocytes % 5.9 % (1.7-9.3); Neutrophils # 5.2 K/mm3 (1.8-7.8); Neutrophils % 62.3 % (37.0-80.0); Platelet Count 181 K/mm3 (142-424); Red Blood Count 4.16 M/mm3 (4.20-5.40); Red Cell Distribution Width 13.4 % (11.5-17.5); White Blood Count 8.4 K/mm3 (4.8-10.8)
[2022-03-19 07:56] LABS: Hemoglobin A1C 7.5 % (4.0-6.0)
[2022-03-19 08:00] LABS: Chloride 103 mmol/L (98-107); Sodium 140 mmol/L (136-145)
[2022-03-19 08:03] LABS: Alanine Aminotransferase 48 U/L (12-78); Albumin Level 4.3 g/dl (3.5-5.0); Albumin/Globulin Ratio 1.5 (1.1-1.8); Alkaline Phosphatase 62 U/L (38-126); Aspartate Amino Transferase 76 U/L (14-36); Bilirubin,Total 0.2 mg/dl (0.2-1.3); Blood Urea Nitrogen 20 mg/dl (7-17); Carbon Dioxide 25 mmol/L (22.0-30.0); Cholesterol 194 mg/dl (140-200); Estimated Glomerular Filt Rate 56 ml/min (>60); GFR (African American) 68 ML/MIN (>60); Globulin 2.9 g/dL (1.3-3.2); Total Protein,Serum 7.2 g/dl (6.3-8.2); Triglycerides 291 mg/dl (30-150); VLDL Cholesterol 58 mg/dL (0-40)
[2022-03-19 08:04] LABS: Calcium 9.7 mg/dl (8.4-10.2); Chol/HDL Ratio 4.3 (1-3.5); Glucose 212 mg/dl (74-100); HDL Cholesterol 45 mg/dl (40-60)
[2022-03-19 08:15] LABS: Direct LDL Cholesterol 87.79 mg/dL (100-129)
== END ==
PROVIDERS: PCP Family Medicine; Visit Provider Family Medicine
DX: E11.9 Type 2 diabetes mellitus without complications (principal); I10 Essential (primary) hypertension
CPT/HCPCS: 36415; 80053; 80061; 83036; 85025

== ENCOUNTER → 2022-04-02 07:53 | Outpatient (CLI) | payer OTHER, SELFPAY ==
--- NOTE | 2022-04-02 07:53 | MM_ITS ---
PROCEDURE INFORMATION: Exam: MG Bilateral Screening 3D Mammography Exam date and time: 04/02/2022 7:53 AM Age: 62 years old Clinical indication: Screening. No family history of breast cancer. TECHNIQUE: Imaging protocol: Bilateral Screening tomosynthesis and 2D mammography including computer-aided detection (CAD) when performed. COMPARISON: 1. MG MM DIG SCREENING MAMM BI W/CAD 04/03/2021 4:29 PM 2. MG MM DIG SCREENING MAMM BI W/CAD 04/02/2020 11:02 AM 3. MG MM DIG SCREENING MAMM BI W/CAD 04/13/2019 3:59 PM 4. MG SCBI MM Dig screening mamm BI w/CAD 04/05/2018 9:20 AM FINDINGS: MAMMOGRAPHY: Breast composition: There are scattered areas of fibroglandular density. Mass: None. Architectural distortion: None. Calcifications: No suspicious calcifications. Asymmetric density: None. Skin thickening: None. Axillary adenopathy: None. IMPRESSION: No mammographic evidence of malignancy. Annual screening is recommended unless otherwise clinically indicated. ASSESSMENT: BI-RADS Category 1: Negative
== END ==
PROVIDERS: PCP Family Medicine; Visit Provider Family Medicine
DX: Z12.31 Encounter for screening mammogram for malignant neoplasm of breast (principal)
CPT/HCPCS: 77063; 77067

== ENCOUNTER → 2022-05-04 15:00 | Outpatient (CLI) | payer OTHER, SELFPAY | PROVIDERS: PCP Family Medicine; Visit Provider Nurse Practitioner Family | DX: G47.33 Obstructive sleep apnea (adult) (pediatric) (principal); R09.02 Hypoxemia; I10 Essential (primary) hypertension | CPT/HCPCS: 94762 ==

== ENCOUNTER → 2022-09-29 14:36 | Outpatient (CLI) | payer OTHER, SELFPAY ==
--- NOTE | 2022-09-29 14:40 | XR_ITS ---
FINAL REPORT CLINICAL HISTORY: knee pain COMPARISON: 10/06/2021 FINDINGS: LEFT KNEE Three views of the left knee reveal no evidence of fracture or dislocation. The bony alignment is normal. There are mild and moderate degenerative changes. There is a moderate medial compartment joint space narrowing. There are probable loose bodies posteriorly. There is no evidence of joint effusion. There are vascular calcifications. IMPRESSION: Mild and moderate degenerative changes with moderate medial compartment joint space narrowing and probable loose bodies posteriorly. All findings are stable. Reviewed, Interpreted and Dictated by Benjie Perla III, MD Transcribed by Annelise Randolph Authenticated and [facility]
== END ==
PROVIDERS: PCP Family Medicine; Visit Provider Orthopaedic Surgery
DX: M25.562 Pain in left knee (principal)
CPT/HCPCS: 73562

== ENCOUNTER → 2022-10-02 10:22 | Outpatient (CLI) | payer OTHER, SELFPAY ==
--- NOTE | 2022-10-02 10:25 | XR_ITS ---
FINAL REPORT CLINICAL HISTORY: right hip pain COMPARISON: 10/06/2021 FINDINGS: RIGHT HIP Two views of the right hip demonstrate no acute fracture or dislocation. There are mild degenerative changes in both hips and the lower lumbar spine. The visualized bony structures are well aligned. There are chronic calcifications adjacent to the right greater trochanter. IMPRESSION: Mild degenerative changes with no acute bony abnormality. Reviewed, Interpreted and Dictated by Benjie Perla III, MD Transcribed by Annelise Randolph Authenticated and [facility]
== END ==
PROVIDERS: PCP Family Medicine; Visit Provider Orthopaedic Surgery
DX: M25.551 Pain in right hip (principal)
CPT/HCPCS: 73502

== ENCOUNTER 2022-10-15 08:00 | Outpatient (RCR) | payer OTHER, SELFPAY | END 2022-10-15 08:05 | disposition home or self-care (01) | LOC: PT 08:00 | PROVIDERS: PCP Family Medicine; Visit Provider Orthopaedic Surgery | DX: M25.562 Pain in left knee (principal); M16.11 Unilateral primary osteoarthritis, right hip | CPT/HCPCS: 97110; 97163 ==

== ENCOUNTER → 2023-04-08 07:52 | Outpatient (CLI) | payer OTHER, SELFPAY ==
--- NOTE | 2023-04-08 07:52 | MM_ITS ---
PROCEDURE INFORMATION: Exam: MG Bilateral Screening 3D Mammography Exam date and time: 04/08/2023 7:56 AM Age: 63 years old Clinical indication: Screening examination; Additional info: Screening for breast cancer TECHNIQUE: Imaging protocol: Bilateral Screening tomosynthesis and 2D mammography including computer-aided detection (CAD) when performed. COMPARISON: 1. MG MM DIG SCREENING MAMM BI W/CAD 04/02/2022 7:53 AM 2. MG MM DIG SCREENING MAMM BI W/CAD 04/03/2021 4:29 PM 3. MG MM DIG SCREENING MAMM BI W/CAD 04/02/2020 11:02 AM FINDINGS: MAMMOGRAPHY: Breast composition: There are scattered areas of fibroglandular density. Mass: No suspicious masses. Architectural distortion: No suspicious distortion. Calcifications: No suspicious calcifications. Asymmetric density: None. Skin thickening: None. Axillary adenopathy: None. IMPRESSION: No mammographic evidence of malignancy. Annual screening is recommended unless otherwise clinically indicated. ASSESSMENT: BI-RADS Category 1: Negative
== END ==
PROVIDERS: PCP Family Medicine; Visit Provider Family Medicine
DX: Z12.31 Encounter for screening mammogram for malignant neoplasm of breast (principal)
CPT/HCPCS: 77063; 77067

== ENCOUNTER 2023-07-20 16:41 | Outpatient (CLI) | payer OTHER, MEDICARE, SELFPAY ==
[2023-07-20 16:54] LABS: Hemoglobin A1C 7.9 % (4.0-6.0)
== END 2023-07-20 23:59 ==
LOC: LAB.DROPOF 16:41
PROVIDERS: PCP Family Medicine; Visit Provider Family Medicine
DX: E11.9 Type 2 diabetes mellitus without complications (principal); Z79.4 Long term (current) use of insulin
CPT/HCPCS: 83036

== ENCOUNTER 2024-03-30 13:38 | Outpatient (CLI) | payer OTHER, MEDICARE, SELFPAY ==
--- NOTE | 2024-03-30 13:43 | XR_ITS ---
FINAL REPORT CLINICAL HISTORY: left knee pain COMPARISON: FINDINGS: LEFT KNEE 3 views of the left knee were obtained. There is no acute fracture or dislocation. There is advanced medial compartment joint space narrowing. Subchondral sclerosis is seen. There are osteophytes at the undersurface of the patella. Visualized joint spaces are normally aligned. Soft tissues are unremarkable. IMPRESSION: Degenerative changes without acute bony abnormality. Reviewed, Interpreted and Dictated by Shun Alfonso MD Transcribed by Andreina Goss Authenticated and . [facility]
== END 2024-03-30 23:59 | disposition home or self-care (01) ==
LOC: RAD 13:40
PROVIDERS: PCP Family Medicine; Visit Provider Orthopaedic Surgery
DX: M25.562 Pain in left knee (principal)
CPT/HCPCS: 73562

== ENCOUNTER 2024-04-06 09:33 | Outpatient (CLI) | payer OTHER, MEDICARE, SELFPAY ==
--- NOTE | 2024-04-06 09:33 | MM_ITS ---
PROCEDURE INFORMATION: Exam: MG Bilateral Screening 3D Mammography Exam date and time: 04/06/2024 9:23 AM Age: 64 years old Clinical indication: Screening exam. TECHNIQUE: Imaging protocol: Bilateral Screening tomosynthesis and 2D mammography including computer-aided detection (CAD) when performed. COMPARISON: 1. MG MM DIG SCREENING MAMM BI W/CAD 04/08/2023 7:56 AM 2. MG MM DIG SCREENING MAMM BI W/CAD 04/02/2022 7:53 AM FINDINGS: MAMMOGRAPHY: Breast composition: There are scattered areas of fibroglandular density. Mass: No suspicious masses. Architectural distortion: None. Calcifications: No suspicious calcifications. Asymmetric density: None. Skin thickening: None. Axillary adenopathy: None. IMPRESSION: No mammographic evidence of malignancy. Annual screening is recommended unless otherwise clinically indicated. ASSESSMENT: BI-RADS Category 1: Negative.
== END 2024-04-06 23:59 | disposition home or self-care (01) ==
LOC: RAD 09:33
PROVIDERS: PCP Family Medicine; Visit Provider Family Medicine
DX: Z12.31 Encounter for screening mammogram for malignant neoplasm of breast (principal)
CPT/HCPCS: 77063; 77067

== ENCOUNTER 2024-12-28 13:41 | Outpatient (CLI) | payer OTHER, MEDICARE, SELFPAY ==
--- NOTE | 2024-12-28 13:49 | XR_ITS ---
FINAL REPORT CLINICAL HISTORY: SOB cough chest pain COMPARISON: 04/01/2021 FINDINGS: CHEST 2 VIEWS No acute pulmonary density is evident. There is no evidence of effusion or other pleural disease. The mediastinum has a normal appearance. There is mild cardiomegaly, similar to prior exam. IMPRESSION: No acute findings. Reviewed, Interpreted and Dictated by Tomer Alvarado MD Transcribed by Priscilla Romo Authenticated and [facility]
[2024-12-28 14:23] LABS: Hematocrit 37.2 % (37.0-47.0); Hemoglobin 11.5 g/dL (12.2-16.2); Immature Granulocytes % 0.9 %; Mean Corpuscular HGB Conc 30.9 g/dL (31.8-35.4); Mean Corpuscular Hemoglobin 30.7 pg (27.0-31.2); Mean Corpuscular Volume 99.2 fl (81-99); Nucleated Red Blood Cells % 0 %; Platelet Count 168 K/mm3 (142-424); Red Blood Count 3.75 M/mm3 (4.20-5.40); Red Cell Distribution Width-SD 49.4 fL; White Blood Count 8.5 K/mm3 (4.8-10.8)
[2024-12-28 15:27] LABS: Chloride 110 mmol/L (98-107); Potassium 4.1 mmoL/L (3.5-5.1); Sodium 142 mmol/L (136-145)
[2024-12-28 15:30] LABS: Anion Gap 11.1 mEq/L (5-15); Blood Urea Nitrogen 26 mg/dl (7-17); Calcium 9.6 mg/dl (8.4-10.2); Carbon Dioxide 25 mmol/L (22.0-30.0); Creatinine,Serum 1.00 mg/dl (0.52-1.04); Estimated Glomerular Filt Rate 55 ml/min (>60); GFR (African American) 67 ML/MIN (>60); Glucose 168 mg/dl (74-100)
[2024-12-28 15:51] LABS: Free Thyroxine Index 2.1 ug/dL (5.93-13.13); T4 (Thyroxine) 6.8 ug/dl (5.53-11.0); Triiodothryronine (T3) Uptake 31 % (23.5-40.5)
[2024-12-28 16:04] LABS: Thyroid Stimulating Hormone 4.81 uIU/mL (0.465-4.68)
== END 2024-12-28 23:59 | disposition home or self-care (01) ==
LOC: LAB 13:43
PROVIDERS: PCP Family Medicine; Visit Provider Physician Assistant
DX: I10 Essential (primary) hypertension (principal); R07.89 Other chest pain; E11.9 Type 2 diabetes mellitus without complications; Z79.4 Long term (current) use of insulin; R94.31 Abnormal electrocardiogram [ECG] [EKG]
CPT/HCPCS: 36415; 71046; 80048; 82565; 84436; 84443; 84479; 84520; 85025

== ENCOUNTER 2025-01-04 10:45 | Outpatient (CLI) | payer OTHER, MEDICARE, SELFPAY ==
--- OUTSIDE RECORDS SUMMARY | 2025-01-04 10:48 | XMS_ITS | Clinical Summary ---
Author Organization [facility] ystem Address [address] [place] [address] Care Team Providers Care Cad Designer Drafter Name Role Phone Saundra Muir Monserrat LINO Primary Care Provider Medications glyburide (DIAbeta) 5 MG tablet Take 1 tablet by mouth Daily With Breakfast. 120 tablet 1 02/11/2022 Active candesartan-hydr ochlorothiazide (ATACAND HCT) 32-12.5 MG per tablet Take 1 tablet by mouth Daily. 30 tablet 1 02/11/2022 Active Januvia 100 MG tablet Take 1 tablet by mouth Daily. 90 tablet 03/25/2022 Active metFORMIN (GLUCOPHAGE) 1000 MG tablet Take 1 tablet by mouth 2 (Two) Times a Day With Meals. 180 tablet 03/25/2022 Active atorvastatin (LIPITOR) 20 MG tablet Take 1 tablet by mouth Daily. 30 tablet 04/07/2022 Active amLODIPine (NORVASC) 10 MG tablet 03/17/2022 Active fenofibrate (TRICOR) 145 MG tablet Take 1 tablet by mouth Daily. 30 tablet 04/13/2022 Active pioglitazone (ACTOS) 30 MG tablet Take 1 tablet by mouth Daily. 30 tablet 3 04/14/2022 Active Social History Tobacco Use Types Packs/Day Years Used Date Smoking Tobacco: Never Assessed Abuse Screen Answer Date Recorded Unsafe at Home or Work/School Not on file Feels Threatened by Someone? Not on file Does Anyone Keep You from Co ntacting Others or Doint Things Outside the Home? Not on file 03/26/2023 Physical Sign of Abuse Present Not on file 1 Housing Stability Answer Date Recorded Current Living Arrangements Not on file 03/14 Potentially Unsafe Housing Conditions Not on sherlyn e 03/26/2023 Family and Community Support Answer Sergio e Recorded Help with Day-to-Day Activities Not on file 03/26/2023 Lonely or Isolated Not on file 03/26/2023 Employment Answer Date Recorded Do you want help finding or keeping work or a tano b? Not on file 03/26/2023 Disabilities Answer Date Recorded Concentrating, Remembering, or Making Decisions Difficulty Not on file 03/26/2023 Doing Errands Independently Difficulty Not on fi le 03/26/2023 Education Answer Date Recorded Help with school or training? Not on file Preferred Language Not on file 03/26/2023 Comments Unknown Sex and Gender Information Value Date Recorded Sex Assigned at Not on file Legal Sex Female 11:04 AM EDT Gender Identity Not on file Sexual Orientation Not on file Plan of Treatment Health Maintenance Due Date Last Done Comments DXA SCAN 1958 TDAP/TD VACCINES (1 - Tdap) 1977 MAMMOGRAM 1998 COLOGUARD 2003 COLON CANCER SCREENING 5 YEAR SIGMOIDOSCOPY 2003 COLONOSCOPY [address] CANCER SCREENING 2003 CT COLONOGRAPHY 2003 FECAL OCCULT BLOOD TEST 2003 FIT Testing (1 year) 2003 Pneumococcal Vaccine 50+ (1 of 1 - PCV) 02/20/2008 ZOSTER VACCINE (1 of 2) 02/20/2008 ANNUAL PHYSICAL 02/11/2022 HEPATITIS C SCREENING 02/11/2022 COVID-19 Vaccine (1 - season) 2024 INFLUENZA VACCINE 03/14/2025 Care Teams Cad Designer Drafter Relationship Specialty Start Date End Date Saundra Muir, RISK [address] [place] [address] PCP - General Family Medicine 06/17/22
--- NOTE | 2025-01-04 11:15 | CA_ITS ---
APPROVED REPORT EXAM: Comprehensive 2D, Doppler, and color-flow Echocardiogram Commercial Kitchen Service Technician: Graciela Obando CRT Ht: 5 ft 2 in Wt: 251lbs BSA: 2.11 BP: 200/85 mmHg Indications: Chest Pain, Hypertension/HDD 2D Dimensions LA Volume 38.00 mL LA Volume Index 17.60 mL/m2 (M/F) 16-34 M-Mode Dimensions RVDd 3.10 cm (0.9-2.6) LA Diam 4.49 cm (1.9-4.0) LVDd 5.23 cm (3.5-5.7) LVDs 3.30 cm (3.5-5.7) IVSd 1.61 cm (0.6-1.1) PWd 1.65 cm (0.6-1.1) EF (Teich) 66.40% FS 36.90% EDV (Teich) 131.20 mL ESV (Teich) 44.10 mL LV Diastology E Decel Time 200 (160-240 msec) E/A Ratio 0.95 MED A' 13.10 cm/s LAT A' 11.30 cm/s Mitral Valve MV E Max Codey. 115.0 (40-130 cm/s) MV A Velocity 121.0 (40-130 cm/s) E/A Ratio 0.95 MV PHT 59.0 ms Pulmonary Valve PV Peak Velocity 85.0 (50-150 cm/s) Tricuspid Valve TR P. Velocity 219.00 cm/s RAP Estimate 10.00 mmHg RVSP 29.10 mmHg Left Ventricle The left ventricle is normal size. The left ventricular systolic function is normal. The left ventricular ejection fraction is within the normal range. There is increased LV wall thickness. There is normal LV segmental wall motion. Diastolic function is indeterminate. LVEF is 60%. Right Ventricle The right ventricle is normal size. The right ventricular systolic function is normal. Atria The left atrium size is normal. The right atrium size is normal. There is no Doppler evidence of interatrial shunt. Aortic Valve Aortic valve is mildly thickened. Trace aortic regurgitation. There is no aortic valvular stenosis. Mitral Valve The mitral valve is normal in structure. No evidence of mitral valve stenosis. Mild mitral regurgitation. Tricuspid Valve Tricuspid valve is grossly normal in structure and function. Trace tricuspid regurgitation. There is insufficient TR jet to estimate RVSP. Pulmonic Valve The pulmonary valve is normal in structure. Trace pulmonic regurgitation. Great Vessels The aortic root is normal in size. IVC is normal in size and collapses >50% with inspiration. Pericardium There is no pericardial effusion. Other Information Study Quality: Technically Difficult Conclusion Technically difficult study due to poor acoustic windows. Normal biventricular systolic function. Mild MR. Electronically signed by : Sobeida Gramajo MD 01/08/2025 19:38:41
[2025-01-04 12:10] VITALS: BMI 45.8
[2025-01-04] MEDS: METOPROLOL TARTRATE 50MG TABLET PO (12:21)
[2025-01-04 12:24] VITALS: BP 156/89; PULSE 66; RESP 16; TEMP 36.1; O2SAT 98
[2025-01-04 12:39] VITALS: BP 170/120; PULSE 68; RESP 16; O2SAT 92
[2025-01-04 12:42] VITALS: BP 175/75; PULSE 63; RESP 16; O2SAT 93
[2025-01-04 12:45] VITALS: BP 165/69; PULSE 65; RESP 16; O2SAT 94
[2025-01-04 12:48] VITALS: BP 165/69; PULSE 65; RESP 16; O2SAT 96
[2025-01-04 12:55] VITALS: BP 145/56; PULSE 60; RESP 16; O2SAT 96
--- NOTE | 2025-01-04 13:00 | CT_ITS ---
APPROVED REPORT Director Of Finance: CLINICAL INDICATION Chest Pain TECHNIQUE Image Acquisition: A 128 slice MDCT scanner ([employer] View) was used for data acquisition. A noncontrast coronary calcium scan was performed. A CT attenuation threshold of 130 Hounsfield units (HU) was used for the detection of calcium in contiguous voxels of 1 sq mm in area to be counted as individual lesions. Bolus tracking in the ascending aorta with a threshold of 180 HU was performed. Immediately afterwards, ECG synchronized cardiac CT was then performed from the cardiac base to apex using retrospective gating with ECG tube current modulation. A total of 85 mL of Isovue 370 mg/mL contrast medium was administered at 5 mL/sec followed by a saline flush using a biphasic injection protocol. A tube voltage of 120 KVp was used. The average heart rate at the time of acquisition was 61 bpm and regular. Image Reconstruction Transaxial images were reconstructed at 0.67 mm slide thickness. Data was reviewed interactively on an advanced workstation capable of 2 and 3-dimensional displays in all conventional reconstruction formats, including multiplanar reformations, maximum intensity projections, curved multiplanar reformations, and volume rendered reconstructions. When applicable, selected routine images describing the relevant coronary anatomy and pathology were saved and sent to PACS. Complications None Technical Quality Overall image quality was technically difficult due to significant motion and blooming artifact in the setting of significant calcification. Coronary artery opacification was suboptimal. Total DLP (Dose-Length Product) is 2947.9 mGy-cm. The reported value represents the total of one or more individual components during the CT acquisition of this date and at this time, and as such, the same value may appear in more than one CT report depending on the interpreting/reporting physicians. COMPARISON None FINDINGS CT Coronary Calcium Scoring LMA (Left Main Artery) = 87 LAD (Left Anterior Descending) = 643 LCX (Left Coronary Circumflex) = 369 RCA (Right Coronary Artery) = 1965 Total Calcium Score = 3064 using the AJ-130 method. The observed calcium score of 3064 is at 99th percentile for subjects of the same age, sex, and race/ethnicity. The interpretation of the calcium heart score is based on the following continuum*: 0 = no calcified plaque detected (risk of coronary artery disease is very low ??? less than 5%) 1-10 = calcium detected in extremely minimal levels (risk of coronary diseases is still low ??? less than 10%) 11-100 = mild levels of plaque detected with certainty (mild or minimal narrowing of heart arteries is likely) 101-400 = definite,at least moderate levels of plaque detected (relatively high risk of a heart attack within 3-5 years) >401-999 = extensive levels of plaque detected (high risk of heart attack, high levels of vascular disease are present, high likelihood of at least one significant coronary narrowing) *The calcium heart score quantifies the burden of coronary calcification/plaque in the coronary arteries. The calcium heart score is not able to evaluate the presence or burden of non-calcified (i.e. soft) plaque. There is also calcification in the aortic valve, as well as the ascending and descending thoracic aorta. Coronary CT Angiography The coronary arterial system is right dominant. Quantitative Stenosis Grading: Left Main (LM): The left main originates normally from the left sinus of Valsalva. The LM bifurcates into the left anterior descending artery and left circumflex artery. There is calcified/noncalcified plaque in the mid LM segment, with up to 50% luminal stenosis. Left Anterior Descending (LAD) and Diagonal Branches: The LAD gives off 2 diagonal branch(es). There is mixed calcified/noncalcified plaque in the proximal and mid LAD segments with up to 70-90% luminal stenosis. There is no evidence of LAD-myocardial bridge. Left Circumflex (LCX) and Obtuse Marginals (OM): The LCX gives off 1 Obtuse Marginal (OM) branch(es). There is mixed calcified/noncalcified plaque in the proximal and mid LCx segments with up to 50 to 70% luminal stenosis. Right Coronary Artery (RCA): The RCA originates normally from the right sinus of Valsalva. The RCA gives off a posterior descending artery (PDA) and posterolateral (PL) branches. There is a calcified/noncalcified plaque in the proximal, mid, and distal RCA segments with up to 70-90% luminal stenosis. Non-Coronary Cardiac Findings: Analysis of the left ventricular (LV) structure and function was performed after 3-D reconstruction of the LV from axial images, with user-corrected automatic contouring for assessment of LV volumes and user-defined reconstruction from oblique planes for measurement of 3-D cardiac structure and function. -The left ventricle systolic function is normal. -There is no left atrial appendage filling defect. Two right pulmonary veins and two left pulmonary veins drain normally into the left atrium. -No pericardial thickening or calcification. -Central and branch pulmonary arteries in the [id number] are unremarkable. -Thoracic aorta within the visualized thoracic aortic-branches in the [id number] is unremarkable. Extracardiac Structures No significant extra-cardiac findings. Note, however, that this study is focused on the cardiac findings. IMPRESSION -Technically difficult study due to significant motion and blooming artifact in the setting of significant calcification. -Presence of extensive coronary calcification with an Agatston score = 3064 using the AJ-130 method. -The observed calcium score of 3064 is at 99th percentile for subjects of the same age, sex, and race/ethnicity. -Severe, multivessel atherosclerotic coronary disease, with likely evidence of significant flow-limiting atherosclerosis of the LAD, RCA, and LCx. -CAD-RADS 4B. Management recommendations per ACC/AHA guidelines*, as clinically appropriate. *Recommendations: CAD RADS 0: Reassurance. Consider non-atherosclerotic causes of chest pain. CAD RADS 1: Consider non-atherosclerotic causes of chest pain. Consider preventive therapy and risk factor modification. CAD RADS 2: Consider non-atherosclerotic causes of chest pain. Consider preventive therapy and risk factor modification, particularly for patients with nonobstructive plaque in multiple segments. CAD RADS 3: Consider further functional testing. Consider symptom-guided anti-ischemic and preventive pharmacotherapy as well as risk factor modification per published guideline statements. CAD RADS 4A: Consider further functional testing or invasive coronary angiography with revascularization per published guideline statements. Consider symptom-guided anti-ischemic and preventive pharmacotherapy as well as risk factor modification per published guideline statements. CAD RADS 4B: Invasive coronary angiography recommended with revascularization per published guideline statements. Consider symptom-guided anti-ischemic and preventive pharmacotherapy as well as risk factor modification per published guideline statements. CAD RADS 5: Consider invasive angiography and/or viability assessment with revascularization per published guideline statements. Consider symptom-guided anti-ischemic and preventive pharmacotherapy as well as risk factor modification per published guideline statements. CRITICAL RESULT None COMMUNICATION Per this written report The coronary and cardiac findings of this CCTA were reviewed, reported, and signed by Chadd Gramajo MD (Director Patient) Conclusion Electronically signed by : Sobeida Gramajo MD 01/04/2025 13:47:32
[2025-01-04] MEDS: 0.9 % SODIUM CHLORIDE 50 ML VIAL IV (13:52)
[2025-01-04] MEDS: IOPAMIDOL-370 (76%);100ML BOTTLE 85 ML IV (13:52)
== END 2025-01-04 13:00 | disposition home or self-care (01) ==
LOC: RT 10:47 → RAD 12:09
PROVIDERS: PCP Family Medicine; Visit Provider Physician Assistant
DX: I25.10 Atherosclerotic heart disease of native coronary artery without angina pectoris (principal); I34.0 Nonrheumatic mitral (valve) insufficiency; I10 Essential (primary) hypertension; E11.9 Type 2 diabetes mellitus without complications; R94.31 Abnormal electrocardiogram [ECG] [EKG]
CPT/HCPCS: 75574; 93306; Q9967

== ENCOUNTER 2025-01-09 19:36 | Inpatient (IN) | payer OTHER, MEDICARE, SELFPAY ==
[2025-01-09] VITALS (32 sets, daily range): BP systolic 111–240; BP diastolic 50–205; PULSE 67–87; RESP 12–40; TEMP 36.3–37.2; O2SAT 58–100; BMI 44.2; BMI 45.4
--- NOTE | 2025-01-09 19:39 | ECG_ITS ---
APPROVED REPORT Exam: Resting ECG HR:81 bpm ECG Measurements Heart Rate 81 AXES MD 178 P 58 QRSd 97 QRS 66 QT 370 T 87 QTc 408 Conclusion SINUS RHYTHM Difficult to interpret secondary to profound baseline artifact Electronically signed by : Dmitry Zaman, 01/10/2025 02:21:51
--- NOTE | 2025-01-09 19:40 | XR_ITS ---
PROCEDURE INFORMATION: Exam: XR Chest Exam date and time: 01/09/2025 8:32 PM Age: 64 years old Clinical indication: Dyspnea; Additional info: Dyspnea and hypoxia TECHNIQUE: Imaging protocol: Radiologic exam of the chest. Views: 1 view. COMPARISON: CR XR CHEST 2V 12/28/2024 1:50 PM FINDINGS: Lungs: Moderate bilateral perihilar and interstitial prominence most consistent with pulmonary edema. Pleural spaces: Unremarkable. No pleural effusion. No pneumothorax. Heart/Mediastinum: Moderate enlargement of the cardiac silhouette noted. Bones/joints: Unremarkable. IMPRESSION: 1. Moderate bilateral perihilar and interstitial prominence most consistent with pulmonary edema. 2. Moderate enlargement of the cardiac silhouette noted.
--- NOTE | 2025-01-09 19:40 | HMH.EDGENADL ---
Discharge Plan Disposition Patient Disposition: Admitted Condition: Critical Clinical Impressions Clinical Impression: Acute hypoxemic respiratory failure, Adult respiratory distress syndrome, Flash pulmonary edema, Hypertensive emergency, Elevated troponin I level Discharge ED Provider: Dmitry Zaman Adult HPI <BEAU Valencia - Last Filed: 01/10/25 13:28> General Chief complaint: Upper Respiratory Infection Stated complaint: SOA Time Seen by Provider: 01/09/25 19:40 History of Present Illness HPI narrative: Patient presents for acute hypoxia and respiratory distress. 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 Patient reports that she was attempting to walk to her car and suddenly could not breathe. Patient arrives in extremis with oxygen saturation of 58. Patient is unable due to her distress to give a meaningful history initially thus deferred until we stabilize her. Patient has recently had a cardiac workup however the results were not available currently and reports that does have cardiovascular disease but and has obstructive sleep apnea with alveolar hypoventilation and utilizes BiPAP at night but without oxygen according to her family members present. Family members also give collateral history that patient recently had an echo and a cardiac CT but they are unaware of what the results show she is not been reevaluated since. Multiple coworkers states that the patient has been fine throughout the day with no complaints.. Patient has a history of hypertension hyperlipidemia insulin-dependent type 2 diabetes mellitus Related Data Home Medications ?Medication ?Instructions ?Recorded ?Confirmed red yeast rice 600 mg capsule 600 mg PO DAILY 08/17/19 01/10/25 glucosamine HCl 500 mg tablet 500 mg PO BID 03/17/22 01/10/25 multivitamin with minerals 1 tab PO DAILY 03/17/22 01/10/25 (Hair,Skin and Nails tablet) omega [id number]-fish oil 1,000 mg 1 cap PO DAILY 03/17/22 01/10/25 (120 mg-180 mg) capsule (Fish Oil) atorvastatin 20 mg tablet 20 mg PO HS 01/10/25 01/10/25 candesartan 32 1 tab PO DAILY 01/10/25 01/10/25 mg-hydrochlorothiazide 12.5 mg tablet glyburide 5 mg tablet 10 mg PO BID 01/10/25 01/10/25 pioglitazone 30 mg tablet 30 mg PO DAILY 01/10/25 01/10/25 Previous Rx's ?Medication ?Instructions ?Recorded pen needle, diabetic 31 gauge x #100 ea 06/01/24 5/16 (BD Ultra-Fine Short Pen Needle) fenofibrate nanocrystallized 145 See Rx Instructions .Route 10/25/24 mg tablet .COMPLEX #30 tabs amlodipine 10 mg tablet 10 mg PO BID #60 tabs 12/28/24 metoprolol succinate 50 mg 50 mg PO DAILY #30 tabs 12/28/24 tablet,extended release 24 hr (Toprol XL) insulin glargine 100 unit/mL (3 50 unit (0.5 mL) SQ HS #3 mL 01/10/25 mL) subcutaneous pen (Basaglar KwikPen U-100 Insulin) Allergies Allergy/AdvReac Type Severity Reaction Status Date / Time No Known Allergies Allergy Verified 01/04/25 12:22 [facility] <BEAU Valencia - Last Filed: 01/10/25 13:28> [facility] Disclaimer: The information contained in this section may have been updated after the patient was seen, as this information can be updated by other users. Medical History (Updated 01/10/25 @ 10:07 by Mehreen Valentine APRN) Other chest pain [place] (obstructive sleep apnea) Diabetes Hypertension Surgical History History of kidney surgery History of appendectomy Family History Mother Diabetes Coronary artery disease Hypertension Heart attack Father Diabetes Coronary artery disease Hypertension Heart attack Other Cancer Social History Smoking Status: Never smoker alcohol intake: never counseling provided: provider counseling substance use type: denies use current occupational status: employed Travel in the last 8 weeks?: None household members: none housing: house Other Medical History Have you received the Flu Vaccine for this season: No Have you received the Pneumonia Vaccine: No <BEAU Valencia - Last Filed: 01/10/25 13:28> ROS Obtained: Yes Systems reviewed as appropriate & no additional complaints except as documented Physical Exam <BEAU Valencia - Last Filed: 01/10/25 13:28> General General appearance: alert and in distress Respiratory Respiratory exam: Present respiratory distress (Apnea and increased work of breathing poor air entry and expiratory wheezing), wheezes, accessory muscle use and prolonged expiratory phase Cardiovascular Cardiovascular exam: Present regular rate and normal rhythm Neurological Exam Neurological exam: Present alert, oriented X3 and CN II-XII intact Medical Decision Making <BEAU Valencia - Last Filed: 01/10/25 13:28> Medical Records Medical records reviewed: Yes I reviewed the patient's medical records. Screening: Per USPSTF and CDC recommendations, given the prevalence of disease in our region, it is our hospital?s policy to screen for HIV and viral Hepatitis for all patients aged 18 and over and those with ongoing risk factors. Chaitanya Inquiry Pt receiving controlled substance: No Vital Signs: 01/09/25 19:40 01/09/25 19:44 01/09/25 19:50 Temperature 98.9 F Temperature Source Temporal Artery Scan Pulse Rate 82 Pulse Rate [Right Brachial] 87 Respiratory Rate 34 H 40 H 40 H Blood Pressure 240/75 H Blood Pressure Mean Blood Pressure Source Automatic Cuff Blood Pressure Source [Right Arm] Automatic Cuff Blood Pressure Position Sitting Blood Pressure Position [Right Arm] Sitting 02 Sat by Pulse Oximetry 58 L 58 L 98 Oxygen Delivery Method Room Air Room Air Non-Rebreather Oxygen Flow Rate (LPM) Fraction of Inspired Oxygen 01/09/25 19:58 01/09/25 20:25 01/09/25 20:27 Temperature Temperature Source Pulse Rate 78 82 Pulse Rate [Right Brachial] Respiratory Rate 24 28 H Blood Pressure 208/79 H 234/205 H Blood Pressure Mean Blood Pressure Source Blood Pressure Source [Right Arm] Blood Pressure Position Sitting Blood Pressure Position [Right Arm] 02 Sat by Pulse Oximetry 97 99 Oxygen Delivery Method Aerosol Mask BiPAP Oxygen Flow Rate (LPM) Fraction of Inspired Oxygen 50 01/09/25 20:35 01/09/25 20:35 01/09/25 20:36 Temperature Temperature Source Pulse Rate 80 78 Pulse Rate [Right Brachial] Respiratory Rate 23 30 H Blood Pressure 174/74 H Blood Pressure Mean 117 Blood Pressure Source Blood Pressure Source [Right Arm] Blood Pressure Position Blood Pressure Position [Right Arm] 02 Sat by Pulse Oximetry 100 100 Oxygen Delivery Method Oxygen Flow Rate (LPM) Fraction of Inspired Oxygen 01/09/25 20:36 01/09/25 20:38 01/09/25 20:38 Temperature Temperature Source Pulse Rate 77 Pulse Rate [Right Brachial] Respiratory Rate 27 H Blood Pressure 188/76 H 185/62 H Blood Pressure Mean 113 108 Blood Pressure Source Blood Pressure Source [Right Arm] Blood Pressure Position Blood Pressure Position [Right Arm] 02 Sat by Pulse Oximetry 99 Oxygen Delivery Method Oxygen Flow Rate (LPM) Fraction of Inspired Oxygen 01/09/25 20:40 01/09/25 20:40 01/09/25 20:43 Temperature Temperature Source Pulse Rate 78 78 Pulse Rate [Right Brachial] Respiratory Rate 29 H 31 H Blood Pressure 177/59 H Blood Pressure Mean 98 Blood Pressure Source Blood Pressure Source [Right Arm] Blood Pressure Position Blood Pressure Position [Right Arm] 02 Sat by Pulse Oximetry 99 99 Oxygen Delivery Method Oxygen Flow Rate (LPM) Fraction of Inspired Oxygen 01/09/25 20:43 01/09/25 20:45 01/09/25 20:45 Temperature Temperature Source Pulse Rate 74 Pulse Rate [Right Brachial] Respiratory Rate 24 Blood Pressure 145/55 H 140/54 L Blood Pressure Mean 85 82 Blood Pressure Source Blood Pressure Source [Right Arm] Blood Pressure Position Blood Pressure Position [Right Arm] 02 Sat by Pulse Oximetry 99 Oxygen Delivery Method Oxygen Flow Rate (LPM) Fraction of Inspired Oxygen 01/09/25 20:47 01/09/25 20:51 01/09/25 20:51 Temperature Temperature Source Pulse Rate 74 75 76 Pulse Rate [Right Brachial] Respiratory Rate 24 23 22 Blood Pressure 111/50 L 111/50 L 136/55 L Blood Pressure Mean Blood Pressure Source Blood Pressure Source [Right Arm] Blood Pressure Position Blood Pressure Position [Right Arm] 02 Sat by Pulse Oximetry 98 98 98 Oxygen Delivery Method BiPAP BiPAP BiPAP Oxygen Flow Rate (LPM) Fraction of Inspired Oxygen 01/09/25 20:54 01/09/25 20:57 01/09/25 20:58 Temperature Temperature Source Pulse Rate 71 69 Pulse Rate [Right Brachial] Respiratory Rate 26 H 25 H Blood Pressure 149/57 H 161/58 H 161/58 H Blood Pressure Mean Blood Pressure Source Blood Pressure Source [Right Arm] Blood Pressure Position Blood Pressure Position [Right Arm] 02 Sat by Pulse Oximetry 99 98 Oxygen Delivery Method BiPAP Oxygen Flow Rate (LPM) Fraction of Inspired Oxygen 01/09/25 21:00 01/09/25 21:03 01/09/25 21:07 Temperature Temperature Source Pulse Rate 74 73 75 Pulse Rate [Right Brachial] Respiratory Rate 31 H 27 H 30 H Blood Pressure 157/56 H 168/60 H 151/56 H Blood Pressure Mean Blood Pressure Source Blood Pressure Source [Right Arm] Blood Pressure Position Blood Pressure Position [Right Arm] 02 Sat by Pulse Oximetry 98 98 98 Oxygen Delivery Method Oxygen Flow Rate (LPM) Fraction of Inspired Oxygen 01/09/25 21:09 01/09/25 21:12 01/09/25 21:12 Temperature Temperature Source Pulse Rate 73 Pulse Rate [Right Brachial] Respiratory Rate 12 Blood Pressure 155/89 H 170/53 H Blood Pressure Mean 92 Blood Pressure Source Blood Pressure Source [Right Arm] Blood Pressure Position Blood Pressure Position [Right Arm] 02 Sat by Pulse Oximetry 98 Oxygen Delivery Method Nasal Cannula Oxygen Flow Rate (LPM) 6 Fraction of Inspired Oxygen 01/09/25 21:15 01/09/25 21:18 01/09/25 21:21 Temperature Temperature Source Pulse Rate 71 74 69 Pulse Rate [Right Brachial] Respiratory Rate 31 H 21 33 H Blood Pressure 156/54 H 153/57 H 166/50 H Blood Pressure Mean Blood Pressure Source Blood Pressure Source [Right Arm] Blood Pressure Position Blood Pressure Position [Right Arm] 02 Sat by Pulse Oximetry 100 99 99 Oxygen Delivery Method BiPAP Oxygen Flow Rate (LPM) 35 Fraction of Inspired Oxygen 01/09/25 21:25 01/09/25 21:27 01/09/25 21:30 Temperature Temperature Source Pulse Rate 69 67 68 Pulse Rate [Right Brachial] Respiratory Rate 23 22 12 Blood Pressure 142/61 H 158/54 H 156/55 H Blood Pressure Mean Blood Pressure Source Blood Pressure Source [Right Arm] Blood Pressure Position Blood Pressure Position [Right Arm] 02 Sat by Pulse Oximetry 99 100 100 Oxygen Delivery Method Oxygen Flow Rate (LPM) Fraction of Inspired Oxygen 01/09/25 21:41 Temperature 98.5 F Temperature Source Oral Pulse Rate 68 Pulse Rate [Right Brachial] Respiratory Rate 28 H Blood Pressure 166/64 H Blood Pressure Mean Blood Pressure Source Blood Pressure Source [Right Arm] Blood Pressure Position Sitting Blood Pressure Position [Right Arm] 02 Sat by Pulse Oximetry Oxygen Delivery Method BiPAP Oxygen Flow Rate (LPM) Fraction of Inspired Oxygen Lab Data Lab results reviewed: Yes I reviewed the patient's lab results. Lab Results 01/09/25 19:45: WBC 15.2 H, RBC 3.90 L, Hgb 12.2, Hct 40.2, MCV 103.1 H, MCH 31.3 H, MCHC 30.3 L, RDW 13.7, Plt Count 237, MPV 12.2 H, Neut % (Auto) 52.3, Lymph % (Auto) 37.6, [place] % (Auto) 6.3, Eos % (Auto) 1.8, Baso % (Auto) 0.7, Neut # (Auto) 7.9 H, Lymph # (Auto) 5.7 H, [place] # (Auto) 1.0, Eos # (Auto) 0.3, Baso # (Auto) 0.1, Total Counted 100, Neutrophils % (Manual) 51, Lymphocytes % (Manual) 39, Monocytes % (Manual) 4, Eosinophils % (Manual) 4 H, Basophils % (Manual) 2.0 H, Platelet Estimate Normal, Polychromasia 1+, Hypochromasia 1+, Macrocytosis 1+, PT 10.9, INR 0.98, Sodium 139, Potassium 3.8, Chloride 106, Carbon Dioxide 23, Anion Gap 13.8, BUN 30 H, Creatinine 1.30 H, Estimated Creat Clear 35, Estimated GFR 41 L, Est GFR ( Amer) 50 L, Glucose 281 H, Calcium 9.7, Magnesium 1.9, Total Bilirubin 0.3, AST 51 H, ALT 34, Alkaline Phosphatase 73, Troponin I 0.05 H, NT-Pro-B Natriuret Pep 930 H, Total Protein 7.8, Albumin 3.7, Globulin 4.1 H, Albumin/Globulin Ratio 0.9 L, Procalcitonin 0.051, HCV Ab DHIRAJ w/Rflx PCR Qn Negative, HIV Ag/Ab Combo Qual Negative 01/09/25 19:48: VBG pH 7.22 L, VBG pCO2 50.6, VBG pO2 66.2 H, VBG HCO3 20.1 L, VBG Total CO2 21.6 L, VBG O2 Saturation 88.3 H, VBG Base Excess -7.7 L, VBG Lactic Acid 3.7 H 01/11/25 04:55 01/11/25 04:55 Orders (Tests/Meds): ED MEDICATIONS Generic Name Dose Route Start Last Admin Trade Name Freq PRN Reason Stop Dose Admin Acetaminophen 650 mg 01/10/25 13:25 Acetaminophen 325mg Tab PO 02/09/25 13:24 Q4HP PRN Fever or Mild Pain (1-3) Hydrocodone Bitart/Acetaminophen 1 tab 01/10/25 13:25 Hydrocodone/Apap 5/325 Mg Tablet PO 02/09/25 13:24 Q4HP PRN Moderate Pain (4-6) Hydrocodone Bitart/Acetaminophen 2 tab 01/10/25 13:25 Hydrocodone/Apap 5/325 Mg Tablet PO 02/09/25 13:24 Q4HP PRN Severe Pain (7-10) Albuterol/Ipratropium 3 ml 01/11/25 04:40 Ipratropium/Albuterol 3 Ml Neb IH 02/10/25 04:39 Q6HP PRN Shortness Of Breath Aspirin 81 mg 01/11/25 09:00 01/11/25 08:24 Aspirin Ec 81mg Tablet PO 02/10/25 08:59 81 mg DAILY HOMERO Administration Atorvastatin Calcium 40 mg 01/10/25 21:00 01/10/25 20:32 Atorvastatin 40mg Tablet PO 02/09/25 20:59 40 mg HS HOMERO Administration Doxycycline Hyclate 100 mg 01/10/25 00:45 01/11/25 08:24 Doxycycline Hycl 100 Mg Tablet PO 01/20/25 00:44 100 mg BID HOMERO Administration Furosemide 40 mg 01/11/25 09:00 01/11/25 08:24 Furosemide 40 Mg Tablet PO 02/10/25 08:59 40 mg DAILY HOMERO Administration Ceftriaxone Sodium 1 gm/ 50 mls @ 100 mls/hr 01/09/25 23:00 01/10/25 23:53 Sodium Chloride IV 01/19/25 22:59 100 mls/hr Q24H HOMERO Administration Nitroglycerin/Dextrose 250 mls @ 3 mls/hr 01/10/25 15:15 01/10/25 15:09 Nitroglycerin 50mg/250ml D5w IV 02/09/25 15:14 10 mcg/min .Q24H HOMERO 3 mls/hr Protocol Administration 10 MCG/MIN Insulin Glargine 20 unit 01/11/25 09:00 01/11/25 08:21 Insulin Glargine 100 Units/Ml 3ml Flexpen SUBCUT 02/10/25 08:59 20 units DAILY HOMERO Administration Insulin Human Lispro 0 unit 01/11/25 05:28 01/11/25 06:34 Humalog 100 Units/Ml 10ml Vial (Ssi) SUBCUT 02/09/25 05:59 4 unit ACHS HOMERO Administration Protocol Irbesartan 75 mg 01/10/25 00:45 01/10/25 20:32 Irbesartan 75mg Tablet PO 02/09/25 00:44 75 mg HS HOMERO Administration Isosorbide Mononitrate 30 mg 01/10/25 15:00 01/11/25 08:23 Isosorbide [place] 30mg Tab.Er.24h PO 02/09/25 14:59 30 mg DAILY HOMERO Administration Metoprolol Succinate 50 mg 01/10/25 09:00 01/11/25 08:23 Metoprolol Succinate Xl 50mg Tablet PO 02/09/25 08:59 50 mg DAILY HOMERO Administration Miscellaneous 1 each 01/10/25 13:25 Consider Pt For Dual Antiplatelet Therapy At Discharge-Stent NOTAPPLIC 02/09/25 13:24 NEEDED PRN Reminder for s/p stent Nitroglycerin 0.4 mg 01/10/25 13:25 01/10/25 14:52 Nitroglycerin 0.4mg Sl Tablet SL 02/09/25 13:24 0.4 mg Q5MINP PRN Administration Chest Pain Ondansetron HCl 4 mg 01/09/25 21:29 Ondansetron 4mg/2ml Vial IV 02/08/25 21:28 Q6HP PRN Nausea Prasugrel 10 mg 01/11/25 09:00 01/11/25 08:23 Prasugrel 10mg Tab PO 02/10/25 08:59 10 mg DAILY HOMREO Administration Sodium Chloride 3 ml 01/09/25 22:47 01/10/25 00:08 Sodium Chloride 3% 15ml Neb IH 02/08/25 22:46 3 ml ONCE PRN Administration [employer] Sodium Chloride 10 ml 01/10/25 07:58 Sodium Chloride 0.9% 10ml Flush Syringe IV 02/09/25 07:57 NEEDED PRN Maintain IV Site Spironolactone 50 mg 01/09/25 21:35 01/11/25 08:23 Spironolactone 25mg Tablet PO 02/08/25 21:34 50 mg DAILY HOMERO Administration Discontinued Medications Generic Name Dose Route Start Last Admin Trade Name Freq PRN Reason Stop Dose Admin Acetaminophen 650 mg 01/09/25 21:29 Acetaminophen 325mg Tab PO 02/08/25 21:28 Q4HP PRN Fever or Mild Pain (1-3) Albuterol/Ipratropium 18 ml 01/09/25 19:40 01/09/25 19:55 Ipratropium/Albuterol 3 Ml Neb IH 01/09/25 19:41 18 ml ONCE ONE Administration Aspirin 325 mg 01/10/25 01:29 01/10/25 02:36 Aspirin 325mg Tablet PO 01/10/25 01:30 325 mg ONCE ONE Administration Diazepam 5 mg 01/10/25 09:44 Diazepam 5mg Tablet PO 01/10/25 21:44 ONCE PRN Anxiety Diazepam 5 mg 01/10/25 11:50 Diazepam 5mg Tablet PO 01/10/25 23:50 ONCE PRN Anxiety Diphenhydramine HCl 50 mg 01/10/25 09:44 01/10/25 12:17 Diphenhydramine 50mg/Ml Vial IV 01/10/25 09:45 Not Given ONCE ONE Diphenhydramine HCl 50 mg 01/10/25 11:50 01/10/25 13:05 Diphenhydramine 50mg/Ml Vial IV 01/10/25 11:51 50 mg ONCE ONE Administration Emollient Ointment 5 gm 01/10/25 06:45 01/10/25 06:57 White Petrolatum 5gm Udp TP 01/10/25 06:46 5 gm ONCE ONE Administration Enoxaparin Sodium 40 mg 01/10/25 09:00 Enoxaparin 40mg/0.4ml Syringe SUBCUT 02/09/25 08:59 DAILY HOMERO Enoxaparin Sodium 60 mg 01/10/25 02:19 01/10/25 02:36 Enoxaparin 100mg/Ml Syringe SUBCUT 01/10/25 02:20 60 mg ONCE ONE Administration Fentanyl Citrate 50 mcg 01/10/25 11:50 Fentanyl 100mcg/2ml Vial IV 01/10/25 23:50 Q3MINP PRN Sedation Fentanyl Citrate 25 mcg 01/10/25 11:50 01/10/25 13:20 Fentanyl 100mcg/2ml Vial IV 01/10/25 23:50 25 mcg Q3MINP PRN Administration Sedation Flumazenil 0.2 mg 01/10/25 11:50 Flumazenil 0.1mg/Ml 5ml Vial IV 01/10/25 23:50 NEEDED PRN Sedation Furosemide 80 mg 01/09/25 21:06 01/09/25 21:13 Furosemide 20 Mg/2 Ml Vial IV 01/09/25 21:07 80 mg ONCE ONE Administration Furosemide 80 mg 01/09/25 16:00 01/09/25 23:25 Furosemide 40mg/4ml Vial IV 02/08/25 15:59 Not Given BIDL HOMERO Furosemide 80 mg 01/10/25 09:00 01/10/25 16:08 Furosemide 100mg/10ml Vial IV 02/09/25 08:59 80 mg BIDL HOMERO Administration Heparin Sodium (Porcine) 5,000 unit 01/10/25 11:50 01/10/25 13:23 Heparin 1,000 Units/Ml 10ml Vial (Grocery Buyer) IV 01/10/25 15:50 6,600 unit NEEDED PRN Administration Emergency [employer]ce Service Team Member Heparin Sodium/Sodium Chloride 3,000 unit 01/10/25 11:50 01/10/25 13:05 Heparin 1,000 Units/500ml Ns (Grocery Buyer) IV 01/10/25 11:51 3,000 unit ONCE ONE Administration Hydralazine HCl 20 mg 01/09/25 19:56 01/09/25 20:03 Hydralazine 20mg/Ml Vial IV 01/09/25 19:57 20 mg ONCE ONE Administration Hydralazine HCl 20 mg 01/10/25 11:50 Hydralazine 20mg/Ml Vial IV 01/10/25 15:50 ONCE PRN sbp>160 Magnesium Sulfate 2 gm in 50 mls @ 50 mls/hr 01/09/25 19:47 01/09/25 19:54 Magnesium Sulfate 2gm/50ml Premix IV 01/09/25 20:46 50 mls/hr ONCE ONE Administration Nitroglycerin/Dextrose 250 mls @ 6 mls/hr 01/09/25 20:30 01/10/25 12:17 Nitroglycerin 50mg/250ml D5w IV 02/08/25 20:29 20 mcg/min .Q24H HOMERO 6 mls/hr Protocol Titration 20 MCG/MIN Doxycycline Hyclate 100 mg/ 250 mls @ 166.667 mls/hr 01/09/25 23:00 01/10/25 00:26 Sodium Chloride IV 01/10/25 00:29 Not Given ONCE ONE Adenosine 180 mg/ Sodium 90 mls @ 628.56 mls/hr 01/10/25 11:50 Chloride IV 01/10/25 15:50 ONCE PRN fractional flow reserve 180 MCG/KG/MIN Adenosine 90 mg/ Sodium 90 mls @ 1,257.12 mls/hr 01/10/25 11:50 Chloride IV 01/10/25 15:50 ONCE PRN fractional flow reserve 180 MCG/KG/MIN Sodium Chloride 1,000 mls @ 25 mls/hr 01/10/25 12:00 01/10/25 13:05 Sod Chloride 0.9% 500ml Bag IV 01/11/25 11:50 25 mls/hr .Q25H HOMERO Administration Insulin Glargine 10 unit 01/10/25 09:00 01/10/25 08:52 Insulin Glargine 100 Units/Ml 3ml Flexpen SUBCUT 02/09/25 08:59 10 unit DAILY HOMERO Administration Insulin Human Lispro 0 unit 01/10/25 06:00 01/10/25 21:30 Humalog 100 Units/Ml 10ml Vial (Ssi) SUBCUT 02/09/25 05:59 4 unit ACHS HOMERO Administration Protocol Irbesartan 150 mg 01/09/25 21:35 01/10/25 00:47 Irbesartan 150mg Tab PO 02/08/25 21:34 Not Given HS HOMERO Ketamine HCl 11 mg 01/09/25 20:18 01/09/25 20:26 Ketamine 50mg/1ml Syringe IV 01/09/25 20:19 11 mg ONCE ONE Administration Labetalol HCl 20 mg 01/10/25 11:50 01/10/25 13:36 Labetalol 20mg/4ml Syringe IV 01/10/25 15:50 20 mg ONCE PRN Administration sbp>160 Lidocaine HCl 10 ml 01/10/25 11:50 01/10/25 13:06 Lidocaine 1% 10ml Mdv IJ 01/10/25 11:51 10 ml ONCE ONE Administration Lidocaine HCl 10 ml 01/10/25 11:50 01/10/25 21:26 Lidocaine 1% 5ml Pf Vial IJ 01/10/25 11:51 Not Given ONCE ONE Lorazepam 1 mg 01/10/25 09:44 Lorazepam 2mg/Ml Vial IV 01/10/25 21:44 ONCE PRN Anxiety Lorazepam 1 mg 01/10/25 11:50 Lorazepam 2mg/Ml Vial IV 01/10/25 23:50 ONCE PRN Anxiety Methylprednisolone Sodium Succinate 125 mg 01/09/25 19:40 01/09/25 19:54 Methylprednisolone Sod Succ 125mg Vial IV 01/09/25 19:41 125 mg ONCE ONE Administration Midazolam HCl 1 mg 01/10/25 11:50 Midazolam 2mg/2ml Vial IV 01/10/25 23:50 Q3MINP PRN Sedation Midazolam HCl 1 mg 01/10/25 11:50 01/10/25 13:20 Midazolam Hcl 1mg/Ml 5ml Vial IV 01/10/25 23:50 1 mg Q3MINP PRN Administration Sedation Morphine Sulfate 4 mg 01/10/25 11:50 01/10/25 21:26 Morphine 4mg/Ml Syringe IV 01/10/25 11:51 Not Given ONCE ONE Naloxone HCl 0.4 mg 01/10/25 11:50 Naloxone 0.4mg/Ml Vial IV 01/10/25 23:50 Q5MINP PRN Decreased Respirations Nitroglycerin 800 mcg 01/10/25 11:50 01/10/25 13:05 Nitroglycerin 800mcg/8ml Syr (Grocery Buyer) IA 01/10/25 15:50 800 mcg NEEDED PRN Administration Emergency Box Produce Service Team Member Nitroglycerin 0.4 mg 01/10/25 14:04 01/10/25 14:06 Nitroglycerin [place] 0.4mg/[place] 4.9gm TL 01/10/25 14:05 0.4 mg ONCE ONE Administration Ondansetron HCl 4 mg 01/10/25 11:50 Ondansetron 4mg/2ml Vial IV 01/10/25 23:50 NEEDED PRN Nausea Prasugrel 60 mg 01/10/25 13:25 01/10/25 13:41 Prasugrel 10mg Tab PO 01/10/25 13:26 60 mg ONCE ONE Administration Promethazine HCl 25 mg 01/10/25 11:50 Promethazine Hcl 25mg/Ml 1ml Vial IV 01/10/25 23:50 NEEDED PRN Nausea And Vomiting Protamine Sulfate 50 mg 01/10/25 11:50 Protamine Sulfate 50mg/5ml Vial (Grocery Buyer) IV 01/10/25 15:50 ONCE PRN act>200 Sodium Chloride 10 ml 01/10/25 09:44 Sodium Chloride 0.9% 10ml Vial IV 02/09/25 09:43 NEEDED PRN to Dilute Lorazepam inj Sodium Chloride 10 ml 01/10/25 11:50 Sodium Chloride 0.9% 10ml Flush Syringe IV 02/09/25 11:49 NEEDED PRN Maintain IV Site Sodium Chloride 10 ml 01/10/25 11:50 Sodium Chloride 0.9% 10ml Vial IV 02/09/25 11:49 NEEDED PRN to Dilute Lorazepam inj Verapamil HCl 2.5 mg 01/10/25 11:50 01/10/25 13:05 Verapamil 2.5mg/Ml 2ml Vial IV 01/10/25 11:51 2.5 mg ONCE ONE Administration ORDERS Category Date Time Status Chest XR -- portable [XR chest portable] Stat Exams 01/09/25 19:40 Completed POCUS Point of Care (ER Only) Stat Exams 01/09/25 19:42 Completed BNP [NT Pro Brain Natriuretic Pep.] Stat Lab 01/09/25 19:45 Completed CBC w/Auto Diff [Complete Blood Count Auto Diff] Stat Lab 01/09/25 19:45 Completed CMP [Comprehensive Metabolic Panel] Stat Lab 01/09/25 19:45 Completed Complete Blood Count Auto Diff AMLAB Lab 01/10/25 05:15 Completed Complete Blood Count Auto Diff AMLAB Lab 01/11/25 04:55 Completed Complete Blood Count Auto Diff AMLAB Lab 01/12/25 06:00 Ordered Complete Blood Count Auto Diff AMLAB Lab 01/13/25 06:00 Ordered Complete Blood Count Auto Diff AMLAB Lab 01/14/25 06:00 Ordered Comprehensive Metabolic Panel AMLAB Lab 01/10/25 05:15 Completed Comprehensive Metabolic Panel AMLAB Lab 01/11/25 04:55 Completed Comprehensive Metabolic Panel AMLAB Lab 01/12/25 06:00 Ordered Comprehensive Metabolic Panel AMLAB Lab 01/13/25 06:00 Ordered Comprehensive Metabolic Panel AMLAB Lab 01/14/25 06:00 Ordered HIV Combo Routine Lab 01/09/25 19:45 Completed Hepatitis C Ab Qual. W/ RFX Routine Lab 01/09/25 19:45 Completed INR [Prothrombin Time INR] Stat Lab 01/09/25 19:45 Completed Magnesium AMLAB Lab 01/10/25 05:15 Completed Magnesium AMLAB Lab 01/11/25 04:55 Completed Magnesium AMLAB Lab 01/12/25 06:00 Ordered Magnesium AMLAB Lab 01/13/25 06:00 Ordered Magnesium AMLAB Lab 01/14/25 06:00 Ordered Magnesium Stat Lab 01/09/25 19:45 Completed Procalcitonin Stat Lab 01/09/25 19:45 Completed Trop I [Troponin I] Stat Lab 01/09/25 19:45 Completed Troponin I Q3H Lab 01/09/25 23:09 Completed Troponin I Q3H Lab 01/10/25 01:39 Completed VBG [Venous Blood Gas] Stat RT 01/09/25 19:48 Completed HEART Score History (anamnesis): Highly suspicious ECG: Non-specific disturbance Age: >65 years Risk factors: Atherosclerosis history Troponin: </= normal limit HEART Score: 7 Medical Decision Narrative: In summary patient is a 64-year-old female who presents to the emergency department for evaluation of hypoxia and acute respiratory distress. Patient is hemodynamically unstable with a systolic blood pressure of 240 and a diastolic of 75 heart rate 87 sinus rhythm on the bedside monitor breathing 34 times a minute satting at 58% on room air upon arrival, afebrile at 98.9. Physical exam is remarkable for well-nourished well-developed morbidly obese, with a BMI of 45, 64-year-old female who is in acute respiratory distress. Patient has tachypnea and accessory muscle use and breath sounds are diminished globally with faint end expiratory wheezes. Cardiovascular shows S1-S2 regular rate and rhythm without murmurs gallops rubs or thrills. There is 2+ bilateral pitting edema to the level of the knees. Abdomen soft nontender no rebound or guarding no rigidity.. Differential diagnosis includes ACS versus PE versus cardiac wheeze versus CHF versus hypertensive emergency versus pneumonia etc. Initial workup will be conducted with hematologic labs VBG plain film chest x-ray twelve-lead EKG CT PE protocol when stable 100% nonrebreather until VBG continuous equipment monitor phototypesetting. Initial interventions include continuous nebulizer 125 mg Solu-Medrol 2 g of magnesium. Initial workup reviewed by me and patient's VBG shows a pH of 7.22 pCO2 of 50.6 PO2 of 66.2 bicarb 20.1 base excess -7.7 VBG lactic acid 3.7, CBC shows a white count of 15.2 H&H 12.2 and 40.2 respectively with an absolute neutrophil Arslan count of 7.9, chemistries are significant for a BUN of 30 creatinine 1.3 glucose of 281 and GFR 41 calcium 9.7 magnesium 1.9 AST of 51 initial troponin was 0.05 NT proBNP was 930 procalcitonin was 0.051 full respiratory panel was negative for any acute organisms. Upon repeat evaluation patient has having moderate response to initial interventions however remains significantly hypertensive with a systolic of 234 and a diastolic of 205. Given this we elected to start the patient on a high-dose nitro drip through the pulmonary edema and ARDS. We were able to titrate patient's blood pressure down to 140 systolic and that point the nitro drip was turned off. Patient's BiPAP settings were 18/8. She was given a small dose of ketamine of 11 mg for BiPAP toleration. Given that we had interact discussion with hospital medicine regarding patient presentation FIGUEROA and management and she will be admitted to the ICU for further evaluation and care. <Dmitry Zaman, DO - Last Filed: 01/11/25 10:05> Vital Signs: 01/09/25 19:40 01/09/25 19:44 01/09/25 19:50 Temperature 98.9 F Temperature Source Temporal Artery Scan Pulse Rate 82 Pulse Rate [Right Brachial] 87 Respiratory Rate 34 H 40 H 40 H Blood Pressure 240/75 H Blood Pressure Mean Blood Pressure Source Automatic Cuff Blood Pressure Source [Right Arm] Automatic Cuff Blood Pressure Position Sitting Blood Pressure Position [Right Arm] Sitting 02 Sat by Pulse Oximetry 58 L 58 L 98 Oxygen Delivery Method Room Air Room Air Non-Rebreather Oxygen Flow Rate (LPM) Fraction of Inspired Oxygen 01/09/25 19:58 01/09/25 20:25 01/09/25 20:27 Temperature Temperature Source Pulse Rate 78 82 Pulse Rate [Right Brachial] Respiratory Rate 24 28 H Blood Pressure 208/79 H 234/205 H Blood Pressure Mean Blood Pressure Source Blood Pressure Source [Right Arm] Blood Pressure Position Sitting Blood Pressure Position [Right Arm] 02 Sat by Pulse Oximetry 97 99 Oxygen Delivery Method Aerosol Mask BiPAP Oxygen Flow Rate (LPM) Fraction of Inspired Oxygen 50 01/09/25 20:35 07/29/25 20:35 01/09/25 20:36 Temperature Temperature Source Pulse Rate 80 78 Pulse Rate [Right Brachial] Respiratory Rate 23 30 H Blood Pressure 174/74 H Blood Pressure Mean 117 Blood Pressure Source Blood Pressure Source [Right Arm] Blood Pressure Position Blood Pressure Position [Right Arm] 02 Sat by Pulse Oximetry 100 100 Oxygen Delivery Method Oxygen Flow Rate (LPM) Fraction of Inspired Oxygen 01/09/25 20:36 01/09/25 20:38 01/09/25 20:38 Temperature Temperature Source Pulse Rate 77 Pulse Rate [Right Brachial] Respiratory Rate 27 H Blood Pressure 188/76 H 185/62 H Blood Pressure Mean 113 108 Blood Pressure Source Blood Pressure Source [Right Arm] Blood Pressure Position Blood Pressure Position [Right Arm] 02 Sat by Pulse Oximetry 99 Oxygen Delivery Method Oxygen Flow Rate (LPM) Fraction of Inspired Oxygen 01/09/25 20:40 01/09/25 20:40 01/09/25 20:43 Temperature Temperature Source Pulse Rate 78 78 Pulse Rate [Right Brachial] Respiratory Rate 29 H 31 H Blood Pressure 177/59 H Blood Pressure Mean 98 Blood Pressure Source Blood Pressure Source [Right Arm] Blood Pressure Position Blood Pressure Position [Right Arm] 02 Sat by Pulse Oximetry 99 99 Oxygen Delivery Method Oxygen Flow Rate (LPM) Fraction of Inspired Oxygen 01/09/25 20:43 01/09/25 20:45 01/09/25 20:45 Temperature Temperature Source Pulse Rate 74 Pulse Rate [Right Brachial] Respiratory Rate 24 Blood Pressure 145/55 H 140/54 L Blood Pressure Mean 85 82 Blood Pressure Source Blood Pressure Source [Right Arm] Blood Pressure Position Blood Pressure Position [Right Arm] 02 Sat by Pulse Oximetry 99 Oxygen Delivery Method Oxygen Flow Rate (LPM) Fraction of Inspired Oxygen 01/09/25 20:47 01/09/25 20:51 01/09/25 20:51 Temperature Temperature Source Pulse Rate 74 75 76 Pulse Rate [Right Brachial] Respiratory Rate 24 23 22 Blood Pressure 111/50 L 111/50 L 136/55 L Blood Pressure Mean Blood Pressure Source Blood Pressure Source [Right Arm] Blood Pressure Position Blood Pressure Position [Right Arm] 02 Sat by Pulse Oximetry 98 98 98 Oxygen Delivery Method BiPAP BiPAP BiPAP Oxygen Flow Rate (LPM) Fraction of Inspired Oxygen 01/09/25 20:54 01/09/25 20:57 01/09/25 20:58 Temperature Temperature Source Pulse Rate 71 69 Pulse Rate [Right Brachial] Respiratory Rate 26 H 25 H Blood Pressure 149/57 H 161/58 H 161/58 H Blood Pressure Mean Blood Pressure Source Blood Pressure Source [Right Arm] Blood Pressure Position Blood Pressure Position [Right Arm] 02 Sat by Pulse Oximetry 99 98 Oxygen Delivery Method BiPAP Oxygen Flow Rate (LPM) Fraction of Inspired Oxygen 01/09/25 21:00 01/09/25 21:03 01/09/25 21:07 Temperature Temperature Source Pulse Rate 74 73 75 Pulse Rate [Right Brachial] Respiratory Rate 31 H 27 H 30 H Blood Pressure 157/56 H 168/60 H 151/56 H Blood Pressure Mean Blood Pressure Source Blood Pressure Source [Right Arm] Blood Pressure Position Blood Pressure Position [Right Arm] 02 Sat by Pulse Oximetry 98 98 98 Oxygen Delivery Method Oxygen Flow Rate (LPM) Fraction of Inspired Oxygen 01/09/25 21:09 01/09/25 21:12 01/09/25 21:12 Temperature Temperature Source Pulse Rate 73 Pulse Rate [Right Brachial] Respiratory Rate 12 Blood Pressure 155/89 H 170/53 H Blood Pressure Mean 92 Blood Pressure Source Blood Pressure Source [Right Arm] Blood Pressure Position Blood Pressure Position [Right Arm] 02 Sat by Pulse Oximetry 98 Oxygen Delivery Method Nasal Cannula Oxygen Flow Rate (LPM) 6 Fraction of Inspired Oxygen 01/09/25 21:15 01/09/25 21:18 01/09/25 21:21 Temperature Temperature Source Pulse Rate 71 74 69 Pulse Rate [Right Brachial] Respiratory Rate 31 H 21 33 H Blood Pressure 156/54 H 153/57 H 166/50 H Blood Pressure Mean Blood Pressure Source Blood Pressure Source [Right Arm] Blood Pressure Position Blood Pressure Position [Right Arm] 02 Sat by Pulse Oximetry 100 99 99 Oxygen Delivery Method BiPAP Oxygen Flow Rate (LPM) 35 Fraction of Inspired Oxygen 01/09/25 21:25 01/09/25 21:27 01/09/25 21:30 Temperature Temperature Source Pulse Rate 69 67 68 Pulse Rate [Right Brachial] Respiratory Rate 23 22 12 Blood Pressure 142/61 H 158/54 H 156/55 H Blood Pressure Mean Blood Pressure Source Blood Pressure Source [Right Arm] Blood Pressure Position Blood Pressure Position [Right Arm] 02 Sat by Pulse Oximetry 99 100 100 Oxygen Delivery Method Oxygen Flow Rate (LPM) Fraction of Inspired Oxygen 01/09/25 21:41 Temperature 98.5 F Temperature Source Oral Pulse Rate 68 Pulse Rate [Right Brachial] Respiratory Rate 28 H Blood Pressure 166/64 H Blood Pressure Mean Blood Pressure Source Blood Pressure Source [Right Arm] Blood Pressure Position Sitting Blood Pressure Position [Right Arm] 02 Sat by Pulse Oximetry Oxygen Delivery Method BiPAP Oxygen Flow Rate (LPM) Fraction of Inspired Oxygen Lab Data Lab Results 01/09/25 19:45: WBC 15.2 H, RBC 3.90 L, Hgb 12.2, Hct 40.2, MCV 103.1 H, MCH 31.3 H, MCHC 30.3 L, RDW 13.7, Plt Count 237, MPV 12.2 H, Neut % (Auto) 52.3, Lymph % (Auto) 37.6, [place] % (Auto) 6.3, Eos % (Auto) 1.8, Baso % (Auto) 0.7, Neut # (Auto) 7.9 H, Lymph # (Auto) 5.7 H, [place] # (Auto) 1.0, Eos # (Auto) 0.3, Baso # (Auto) 0.1, Total Counted 100, Neutrophils % (Manual) 51, Lymphocytes % (Manual) 39, Monocytes % (Manual) 4, Eosinophils % (Manual) 4 H, Basophils % (Manual) 2.0 H, Platelet Estimate Normal, Polychromasia 1+, Hypochromasia 1+, Macrocytosis 1+, PT 10.9, INR 0.98, Sodium 139, Potassium 3.8, Chloride 106, Carbon Dioxide 23, Anion Gap 13.8, BUN 30 H, Creatinine 1.30 H, Estimated Creat Clear 35, Estimated GFR 41 L, Est GFR ( Amer) 50 L, Glucose 281 H, Calcium 9.7, Magnesium 1.9, Total Bilirubin 0.3, AST 51 H, ALT 34, Alkaline Phosphatase 73, Troponin I 0.05 H, NT-Pro-B Natriuret Pep 930 H, Total Protein 7.8, Albumin 3.7, Globulin 4.1 H, Albumin/Globulin Ratio 0.9 L, Procalcitonin 0.051, HCV Ab DHIRAJ w/Rflx PCR Qn Negative, HIV Ag/Ab Combo Qual Negative 01/09/25 19:48: VBG pH 7.22 L, VBG pCO2 50.6, VBG pO2 66.2 H, VBG HCO3 20.1 L, VBG Total CO2 21.6 L, VBG O2 Saturation 88.3 H, VBG Base Excess -7.7 L, VBG Lactic Acid 3.7 H Orders (Tests/Meds): ED MEDICATIONS Generic Name Dose Route Start Last Admin Trade Name Freq PRN Reason Stop Dose Admin Acetaminophen 650 mg 01/10/25 13:25 Acetaminophen 325mg Tab PO 02/09/25 13:24 Q4HP PRN Fever or Mild Pain (1-3) Hydrocodone Bitart/Acetaminophen 1 tab 01/10/25 13:25 Hydrocodone/Apap 5/325 Mg Tablet PO 02/09/25 13:24 Q4HP PRN Moderate Pain (4-6) Hydrocodone Bitart/Acetaminophen 2 tab 01/10/25 13:25 Hydrocodone/Apap 5/325 Mg Tablet PO 02/09/25 13:24 Q4HP PRN Severe Pain (7-10) Albuterol/Ipratropium 3 ml 01/11/25 04:40 Ipratropium/Albuterol 3 Ml Neb IH 02/10/25 04:39 Q6HP PRN Shortness Of Breath Aspirin 81 mg 01/11/25 09:00 01/11/25 08:24 Aspirin Ec 81mg Tablet PO 02/10/25 08:59 81 mg DAILY HOMERO Administration Atorvastatin Calcium 40 mg 01/10/25 21:00 01/10/25 20:32 Atorvastatin 40mg Tablet PO 02/09/25 20:59 40 mg HS HOMERO Administration Doxycycline Hyclate 100 mg 01/10/25 00:45 01/11/25 08:24 Doxycycline Hycl 100 Mg Tablet PO 01/20/25 00:44 100 mg BID HOMERO Administration Furosemide 40 mg 01/11/25 09:00 01/11/25 08:24 Furosemide 40 Mg Tablet PO 02/10/25 08:59 40 mg DAILY HOMERO Administration Ceftriaxone Sodium 1 gm/ 50 mls @ 100 mls/hr 01/09/25 23:00 01/10/25 23:53 Sodium Chloride IV 01/19/25 22:59 100 mls/hr Q24H HOMERO Administration Nitroglycerin/Dextrose 250 mls @ 3 mls/hr 01/10/25 15:15 01/10/25 15:09 Nitroglycerin 50mg/250ml D5w IV 02/09/25 15:14 10 mcg/min .Q24H HOMERO 3 mls/hr Protocol Administration 10 MCG/MIN Insulin Glargine 20 unit 01/11/25 09:00 01/11/25 08:21 Insulin Glargine 100 Units/Ml 3ml Flexpen SUBCUT 02/10/25 08:59 20 units DAILY HOMERO Administration Insulin Human Lispro 0 unit 01/11/25 05:28 01/11/25 06:34 Humalog 100 Units/Ml 10ml Vial (Ssi) SUBCUT 02/09/25 05:59 4 unit ACHS HOMERO Administration Protocol Irbesartan 75 mg 01/10/25 00:45 01/10/25 20:32 Irbesartan 75mg Tablet PO 02/09/25 00:44 75 mg HS HOMERO Administration Isosorbide Mononitrate 30 mg 01/10/25 15:00 01/11/25 08:23 Isosorbide [place] 30mg Tab.Er.24h PO 02/09/25 14:59 30 mg DAILY HOMERO Administration Metoprolol Succinate 50 mg 01/10/25 09:00 01/11/25 08:23 Metoprolol Succinate Xl 50mg Tablet PO 02/09/25 08:59 50 mg DAILY HOMERO Administration Miscellaneous 1 each 01/10/25 13:25 Consider Pt For Dual Antiplatelet Therapy At Discharge-Stent NOTAPPLIC 02/09/25 13:24 NEEDED PRN Reminder for s/p stent Nitroglycerin 0.4 mg 01/10/25 13:25 01/10/25 14:52 Nitroglycerin 0.4mg Sl Tablet SL 02/09/25 13:24 0.4 mg Q5MINP PRN Administration Chest Pain Ondansetron HCl 4 mg 01/09/25 21:29 Ondansetron 4mg/2ml Vial IV 02/08/25 21:28 Q6HP PRN Nausea Prasugrel 10 mg 01/11/25 09:00 01/11/25 08:23 Prasugrel 10mg Tab PO 02/10/25 08:59 10 mg DAILY HOMERO Administration Sodium Chloride 3 ml 01/09/25 22:47 01/10/25 00:08 Sodium Chloride 3% 15ml Neb IH 02/08/25 22:46 3 ml ONCE PRN Administration [employer] Sodium Chloride 10 ml 07/30/25 07:58 Sodium Chloride 0.9% 10ml Flush Syringe IV 02/09/25 07:57 NEEDED PRN Maintain IV Site Spironolactone 50 mg 01/09/25 21:35 01/11/25 08:23 Spironolactone 25mg Tablet PO 02/08/25 21:34 50 mg DAILY HOMERO Administration Discontinued Medications Generic Name Dose Route Start Last Admin Trade Name Freq PRN Reason Stop Dose Admin Acetaminophen 650 mg 01/09/25 21:29 Acetaminophen 325mg Tab PO 02/08/25 21:28 Q4HP PRN Fever or Mild Pain (1-3) Albuterol/Ipratropium 18 ml 01/09/25 19:40 01/09/25 19:55 Ipratropium/Albuterol 3 Ml Neb 01/09/25 19:41 18 ml ONCE ONE Administration Aspirin 325 mg 01/10/25 01:29 01/10/25 02:36 Aspirin 325mg Tablet PO 01/10/25 01:30 325 mg ONCE ONE Administration Diazepam 5 mg 01/10/25 09:44 Diazepam 5mg Tablet PO 01/10/25 21:44 ONCE PRN Anxiety Diazepam 5 mg 01/10/25 11:50 Diazepam 5mg Tablet PO 01/10/25 23:50 ONCE PRN Anxiety Diphenhydramine HCl 50 mg 01/10/25 09:44 01/10/25 12:17 Diphenhydramine 50mg/Ml Vial IV 01/10/25 09:45 Not Given ONCE ONE Diphenhydramine HCl 50 mg 01/10/25 11:50 01/10/25 13:05 Diphenhydramine 50mg/Ml Vial IV 01/10/25 11:51 50 mg ONCE ONE Administration Emollient Ointment 5 gm 01/10/25 06:45 01/10/25 06:57 White Petrolatum 5gm Udp TP 01/10/25 06:46 5 gm ONCE ONE Administration Enoxaparin Sodium 40 mg 01/10/25 09:00 Enoxaparin 40mg/0.4ml Syringe SUBCUT 02/09/25 08:59 DAILY HOMERO Enoxaparin Sodium 60 mg 01/10/25 02:19 01/10/25 02:36 Enoxaparin 100mg/Ml Syringe SUBCUT 01/10/25 02:20 60 mg ONCE ONE Administration Fentanyl Citrate 50 mcg 01/10/25 11:50 Fentanyl 100mcg/2ml Vial IV 01/10/25 23:50 Q3MINP PRN Sedation Fentanyl Citrate 25 mcg 01/10/25 11:50 01/10/25 13:20 Fentanyl 100mcg/2ml Vial IV 01/10/25 23:50 25 mcg Q3MINP PRN Administration Sedation Flumazenil 0.2 mg 01/10/25 11:50 Flumazenil 0.1mg/Ml 5ml Vial IV 01/10/25 23:50 NEEDED PRN Sedation Furosemide 80 mg 01/09/25 21:06 01/09/25 21:13 Furosemide 20 Mg/2 Ml Vial IV 01/09/25 21:07 80 mg ONCE ONE Administration Furosemide 80 mg 01/09/25 16:00 01/09/25 23:25 Furosemide 40mg/4ml Vial IV 02/08/25 15:59 Not Given BIDL HOMERO Furosemide 80 mg 01/10/25 09:00 01/10/25 16:08 Furosemide 100mg/10ml Vial IV 02/09/25 08:59 80 mg BIDL HOMERO Administration Heparin Sodium (Porcine) 5,000 unit 01/10/25 11:50 01/10/25 13:23 Heparin 1,000 Units/Ml 10ml Vial (Grocery Buyer) IV 01/10/25 15:50 6,600 unit NEEDED PRN Administration [employer] Team Member Heparin Sodium/Sodium Chloride 3,000 unit 01/10/25 11:50 01/10/25 13:05 Heparin 1,000 Units/500ml Ns (Grocery Buyer) IV 01/10/25 11:51 3,000 unit ONCE ONE Administration Hydralazine HCl 20 mg 01/09/25 19:56 01/09/25 20:03 Hydralazine 20mg/Ml Vial IV 01/09/25 19:57 20 mg ONCE ONE Administration Hydralazine HCl 20 mg 01/10/25 11:50 Hydralazine 20mg/Ml Vial IV 01/10/25 15:50 ONCE PRN sbp>160 Magnesium Sulfate 2 gm in 50 mls @ 50 mls/hr 01/09/25 19:47 01/09/25 19:54 Magnesium Sulfate 2gm/50ml Premix IV 01/09/25 20:46 50 mls/hr ONCE ONE Administration Nitroglycerin/Dextrose 250 mls @ 6 mls/hr 01/09/25 20:30 01/10/25 12:17 Nitroglycerin 50mg/250ml D5w IV 02/08/25 20:29 20 mcg/min .Q24H HOMERO 6 mls/hr Protocol Titration 20 MCG/MIN Doxycycline Hyclate 100 mg/ 250 mls @ 166.667 mls/hr 01/09/25 23:00 01/10/25 00:26 Sodium Chloride IV 01/10/25 00:29 Not Given ONCE ONE Adenosine 180 mg/ Sodium 90 mls @ 628.56 mls/hr 01/10/25 11:50 Chloride IV 01/10/25 15:50 ONCE PRN fractional flow reserve 180 MCG/KG/MIN Adenosine 90 mg/ Sodium 90 mls @ 1,257.12 mls/hr 01/10/25 11:50 Chloride IV 01/10/25 15:50 ONCE PRN fractional flow reserve 180 MCG/KG/MIN Sodium Chloride 1,000 mls @ 25 mls/hr 01/10/25 12:00 01/10/25 13:05 Sod Chloride 0.9% 500ml Bag IV 01/11/25 11:50 25 mls/hr .Q25H HOMERO Administration Insulin Glargine 10 unit 01/10/25 09:00 01/10/25 08:52 Insulin Glargine 100 Units/Ml 3ml Flexpen SUBCUT 02/09/25 08:59 10 unit DAILY HOMERO Administration Insulin Human Lispro 0 unit 01/10/25 06:00 01/10/25 21:30 Humalog 100 Units/Ml 10ml Vial (Ssi) SUBCUT 02/09/25 05:59 4 unit ACHS HOMERO Administration Protocol Irbesartan 150 mg 01/09/25 21:35 01/10/25 00:47 Irbesartan 150mg Tab PO 02/08/25 21:34 Not Given HS HOMERO Ketamine HCl 11 mg 01/09/25 20:18 01/09/25 20:26 Ketamine 50mg/1ml Syringe IV 01/09/25 20:19 11 mg ONCE ONE Administration Labetalol HCl 20 mg 01/10/25 11:50 01/10/25 13:36 Labetalol 20mg/4ml Syringe IV 01/10/25 15:50 20 mg ONCE PRN Administration sbp>160 Lidocaine HCl 10 ml 01/10/25 11:50 01/10/25 13:06 Lidocaine 1% 10ml Mdv IJ 01/10/25 11:51 10 ml ONCE ONE Administration Lidocaine HCl 10 ml 01/10/25 11:50 01/10/25 21:26 Lidocaine 1% 5ml Pf Vial IJ 01/10/25 11:51 Not Given ONCE ONE Lorazepam 1 mg 01/10/25 09:44 Lorazepam 2mg/Ml Vial IV 01/10/25 21:44 ONCE PRN Anxiety Lorazepam 1 mg 01/10/25 11:50 Lorazepam 2mg/Ml Vial IV 01/10/25 23:50 ONCE PRN Anxiety Methylprednisolone Sodium Succinate 125 mg 01/09/25 19:40 01/09/25 19:54 Methylprednisolone Sod Succ 125mg Vial IV 01/09/25 19:41 125 mg ONCE ONE Administration Midazolam HCl 1 mg 01/10/25 11:50 Midazolam 2mg/2ml Vial IV 01/10/25 23:50 Q3MINP PRN Sedation Midazolam HCl 1 mg 01/10/25 11:50 01/10/25 13:20 Midazolam Hcl 1mg/Ml 5ml Vial IV 01/10/25 23:50 1 mg Q3MINP PRN Administration Sedation Morphine Sulfate 4 mg 01/10/25 11:50 01/10/25 21:26 Morphine 4mg/Ml Syringe IV 01/10/25 11:51 Not Given ONCE ONE Naloxone HCl 0.4 mg 01/10/25 11:50 Naloxone 0.4mg/Ml Vial IV 01/10/25 23:50 Q5MINP PRN Decreased Respirations Nitroglycerin 800 mcg 01/10/25 11:50 01/10/25 13:05 Nitroglycerin 800mcg/8ml Syr (Grocery Buyer) IA 01/10/25 15:50 800 mcg NEEDED PRN Administration Emergency [employer] Team Member Nitroglycerin 0.4 mg 01/10/25 14:04 01/10/25 14:06 Nitroglycerin [place] 0.4mg/[place] 4.9gm TL 01/10/25 14:05 0.4 mg ONCE ONE Administration Ondansetron HCl 4 mg 01/10/25 11:50 Ondansetron 4mg/2ml Vial IV 01/10/25 23:50 NEEDED PRN Nausea Prasugrel 60 mg 01/10/25 13:25 01/10/25 13:41 Prasugrel 10mg Tab PO 01/10/25 13:26 60 mg ONCE ONE Administration Promethazine HCl 25 mg 01/10/25 11:50 Promethazine Hcl 25mg/Ml 1ml Vial IV 01/10/25 23:50 NEEDED PRN Nausea And Vomiting Protamine Sulfate 50 mg 01/10/25 11:50 Protamine Sulfate 50mg/5ml Vial (Grocery Buyer) IV 01/10/25 15:50 ONCE PRN act>200 Sodium Chloride 10 ml 01/10/25 09:44 Sodium Chloride 0.9% 10ml Vial IV 02/09/25 09:43 NEEDED PRN to Dilute Lorazepam inj Sodium Chloride 10 ml 01/10/25 11:50 Sodium Chloride 0.9% 10ml Flush Syringe IV 02/09/25 11:49 NEEDED PRN Maintain IV Site Sodium Chloride 10 ml 01/10/25 11:50 Sodium Chloride 0.9% 10ml Vial IV 02/09/25 11:49 NEEDED PRN to Dilute Lorazepam inj Verapamil HCl 2.5 mg 01/10/25 11:50 01/10/25 13:05 Verapamil 2.5mg/Ml 2ml Vial IV 01/10/25 11:51 2.5 mg ONCE ONE Administration ORDERS Category Date Time Status Chest XR -- portable [XR chest portable] Stat Exams 01/09/25 19:40 Completed POCUS Point of Care (ER Only) Stat Exams 01/09/25 19:42 Completed BNP [NT Pro Brain Natriuretic Pep.] Stat Lab 01/09/25 19:45 Completed CBC w/Auto Diff [Complete Blood Count Auto Diff] Stat Lab 01/09/25 19:45 Completed CMP [Comprehensive Metabolic Panel] Stat Lab 01/09/25 19:45 Completed Complete Blood Count Auto Diff AMLAB Lab 01/10/25 05:15 Completed Complete Blood Count Auto Diff AMLAB Lab 01/11/25 04:55 Completed Complete Blood Count Auto Diff AMLAB Lab 01/12/25 06:00 Ordered Complete Blood Count Auto Diff AMLAB Lab 01/13/25 06:00 Ordered Complete Blood Count Auto Diff AMLAB Lab 01/14/25 06:00 Ordered Comprehensive Metabolic Panel AMLAB Lab 01/10/25 05:15 Completed Comprehensive Metabolic Panel AMLAB Lab 01/11/25 04:55 Completed Comprehensive Metabolic Panel AMLAB Lab 01/12/25 06:00 Ordered Comprehensive Metabolic Panel AMLAB Lab 01/13/25 06:00 Ordered Comprehensive Metabolic Panel AMLAB Lab 01/14/25 06:00 Ordered HIV Combo Routine Lab 01/09/25 19:45 Completed Hepatitis C Ab Qual. W/ RFX Routine Lab 01/09/25 19:45 Completed INR [Prothrombin Time INR] Stat Lab 01/09/25 19:45 Completed Magnesium AMLAB Lab 01/10/25 05:15 Completed Magnesium AMLAB Lab 01/11/25 04:55 Completed Magnesium AMLAB Lab 01/12/25 06:00 Ordered Magnesium AMLAB Lab 01/13/25 06:00 Ordered Magnesium AMLAB Lab 01/14/25 06:00 Ordered Magnesium Stat Lab 01/09/25 19:45 Completed Procalcitonin Stat Lab 01/09/25 19:45 Completed Trop I [Troponin I] Stat Lab 01/09/25 19:45 Completed Troponin I Q3H Lab 01/09/25 23:09 Completed Troponin I Q3H Lab 01/10/25 01:39 Completed VBG [Venous Blood Gas] Stat RT 01/09/25 19:48 Completed ECG Data Tracing #1: I reviewed this ECG and interpreted as documented below: Initial EKG was not able to be interpreted secondary to profound artifact from the patient being hyperactive. Tracing #2: I reviewed this ECG and interpreted as documented below: After patient was more calm, we did obtain a repeat EKG. Was personally interpreted by me and demosntrated normal sinus rhythm at a rate of 80 bpm, normal MS, QRS, and QTc intervals.No ST segment elevation or depression and no overt signs of ischemia. HEART Score HEART Score: 7 Medical Decision Narrative: In summary patient is a 64-year-old female who presents to the emergency department for evaluation of hypoxia and acute respiratory distress. Patient is hemodynamically unstable with a systolic blood pressure of 240 and a diastolic of 75 heart rate 87 sinus rhythm on the bedside monitor breathing 34 times a minute satting at 58% on room air upon arrival, afebrile at 98.9. Physical exam is remarkable for well-nourished well-developed morbidly obese, with a BMI of 45, 64-year-old female who is in acute respiratory distress. Patient has tachypnea and accessory muscle use and breath sounds are diminished globally with faint end expiratory wheezes. Cardiovascular shows S1-S2 regular rate and rhythm without murmurs gallops rubs or thrills. There is 2+ bilateral pitting edema to the level of the knees. Abdomen soft nontender no rebound or guarding no rigidity.. Differential diagnosis includes ACS versus PE versus cardiac wheeze versus CHF versus hypertensive emergency versus pneumonia etc. Initial workup will be conducted with hematologic labs VBG plain film chest x-ray twelve-lead EKG CT PE protocol when stable 100% nonrebreather until VBG continuous equipment monitor phototypesetting. Initial interventions include continuous nebulizer 125 mg Solu-Medrol 2 g of magnesium. Initial workup reviewed by me and patient's VBG shows a pH of 7.22 pCO2 of 50.6 PO2 of 66.2 bicarb 20.1 base excess -7.7 VBG lactic acid 3.7, CBC shows a white count of 15.2 H&H 12.2 and 40.2 respectively with an absolute neutrophil [place]sl[place] count of 7.9, chemistries are significant for a BUN of 30 creatinine 1.3 glucose of 281 and GFR 41 calcium 9.7 magnesium 1.9 AST of 51 initial troponin was 0.05 NT proBNP was 930 procalcitonin was 0.051 full respiratory panel was negative for any acute organisms. Upon repeat evaluation patient has having moderate response to initial interventions however remains significantly hypertensive with a systolic of 234 and a diastolic of 205. Given this we elected to start the patient on a high-dose nitro drip through the pulmonary edema. We were able to titrate patient's blood pressure down to 140 systolic and that point the nitro drip was turned off. Patient's BiPAP settings were 18/8. She was given a small dose of ketamine of 11 mg for BiPAP toleration. Given that we had interact discussion with hospital medicine regarding patient presentation FIGUEROA and management and she will be admitted to the ICU for further evaluation and care. Attending Attestation: Immediately after midelevel evaluation of the patient I was alerted to the severity of her presentation and I immediately presented to the room to evaluate the patient. This is a 64 year old female, with PMH of HTN, DM, [place] on nightly BiPAP, currently undergoing workup for heart failure given b/l lower extremity edema, who presented with profound respiratory distress. 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 She arrived in extremis with an oxygen saturation < 60%. She was hyperactive and would not sit still from air hunger anxiety. Her initial EKG was unable to be interpreted secondary to patient movement. It was difficult for several minutes to obtain a blood pressure. I was able to perform a bedside POCUS assessment, and unfortunately these images were not saved as urgency superceded placing a POCUS order. On her lung examination she had profound B-lines in > 3 lung nettles bilaterally. We were finally able to obtain a blood pressure and her initial reading was 240/200. At this time my leading diagnosis was sympathetic crashing acute pulmonary edema (SCAPE). The patient was incredibly difficult to manage. She kept ripping the nonrebreather off of her face so we had to waft the nonrebreather in front of her face in order to improve her saturations. During my assessment she was speaking in 1-2 word sentences and kept repeating no intubation . The DRU co-managing the patient had ordered nebs and steroids for the patient given her diminished breath sounds. This, with supplemental oxygen, did improve her saturations to near 90% over several minutes. However, given that she has no history of asthma and no history of COPD, I felt that bronchoconstriction was less likely and SCAPE was the more likely diagnosis. We did finally obtain an adequate EKG, and the interpretation can be found above. There was no evidence of overt ST elevation to suggest acute myocardial infarction as the cause of her symptoms. We immediately proceeded with a nitroglycerin drip and BiPAP. She was too hypervigilant to tolerate BiPAP, but I needed compliance with this intervention to lower her preload and prevent worsening respiratory status and cardiac arrest. Therefore, we administered pain dose ketamine as an IV push at 0.1 mg/kg and following this intervention anxiolysis was achieved and she was compliant with BiPAP. In tandem, we started a nitroglycerin drip at 400 mcg/minute for 5 minutes. Her blood pressure significantly improved and her oxygen saturations normalized. She was now resting comfortably and was communicating that she felt significantly improved. Her BP did drop to 140 systolic, so the NTG drip was paused for several minutes and then resumed at a low rate of 10 mcg/minute as her blood pressure began to elevate again. She remained on BiPAP and NTG drip throughout the duration of her stay in the emergency department. I spent >90 minutes at the bedside managing the patient throughout her critical presentation. I ultimately had a interactive discussion with the internal medicine service who agreed to evaluate the patient in the emergency department. After our discussion and their evaluation they agreed to admit the patient to their service and accept primary responsibility of the patient moving forward. Dmitry Zaman, DO Critical Care <BEAU Valencia - Last Filed: 01/10/25 13:28> Critical Care Time Critical Care Time: Yes Attestation: On 01/09/25, the high probability of a clinically significant, sudden or life threatening deterioration of the following system(s) required my full and direct attention, intervention and personal management. The time I documented below is in addition to time spent performing reported procedures but includes the following listed in this critical care notation. Total Time Total Critical Care Time: 90
--- NOTE | 2025-01-09 19:47 | PC.NURSE ---
Pt arrives acutely short of breath. Pt 58% on room air placed on NRB at 100% Sao2 97% on O2. Respiratory therapy at bedside continuous treatment initiated
[2025-01-09] MEDS: MAGNESIUM SULFATE IN WATER 2 GM/50 ML PIGGYBACK IV (19:54)
[2025-01-09] MEDS: METHYLPREDNISOLONE SOD SUCC 125MG VIAL 125 MG IV (19:54)
[2025-01-09] MEDS: IPRATROPIUM/ALBUTEROL 3 ML NEB 18 ML IH (19:55)
--- OUTSIDE RECORDS SUMMARY | 2025-01-09 19:55 | XMS_ITS | Clinical Summary ---
Author Organization [facility] ystem Address [address] [place] [address] Care Team Providers Care Protective Signal Operations Supervisor Name Role Phone Saundra Muir Monserrat LINO [...] season) 2024 INFLUENZA VACCINE 03/14/2025 Care Teams Protective Signal Operations Supervisor Relationship Specialty Start Date End Date Saundra Muir, TRANSLATOR AND INTERPRETER [address] [place] [address] PCP - General Family Medicine 06/17/22
[2025-01-09 20:02] LABS: Hematocrit 40.2 % (37.0-47.0); Hemoglobin 12.2 g/dL (12.2-16.2); Immature Granulocytes % 1.3 %; Mean Corpuscular HGB Conc 30.3 g/dL (31.8-35.4); Mean Corpuscular Hemoglobin 31.3 pg (27.0-31.2); Mean Corpuscular Volume 103.1 fl (81-99); Nucleated Red Blood Cells % 0 %; Platelet Count 237 K/mm3 (142-424); Red Blood Count 3.90 M/mm3 (4.20-5.40); Red Cell Distribution Width-SD 51.8 fL; White Blood Count 15.2 K/mm3 (4.8-10.8)
[2025-01-09] MEDS: HYDRALAZINE 20MG/ML VIAL 20 MG IV (20:03)
[2025-01-09 20:04] LABS: Albumin Level 3.7 g/dl (3.5-5.0); Chloride 106 mmol/L (98-107); Potassium 3.8 mmoL/L (3.5-5.1); Sodium 139 mmol/L (136-145)
[2025-01-09 20:07] LABS: Alanine Aminotransferase 34 U/L (12-78); Albumin/Globulin Ratio 0.9 (1.1-1.8); Alkaline Phosphatase 73 U/L (38-126); Anion Gap 13.8 mEq/L (5-15); Aspartate Amino Transferase 51 U/L (14-36); Bilirubin,Total 0.3 mg/dl (0.2-1.3); Blood Urea Nitrogen 30 mg/dl (7-17); Calcium 9.7 mg/dl (8.4-10.2); Carbon Dioxide 23 mmol/L (22.0-30.0); Creatinine Clearance Estimated 35 mL/min (50-200); Creatinine,Serum 1.30 mg/dl (0.52-1.04); Estimated Glomerular Filt Rate 41 ml/min (>60); GFR (African American) 50 ML/MIN (>60); Globulin 4.1 g/dL (1.3-3.2); Glucose 281 mg/dl (74-100); INR 0.98 (0.9-1.1); Magnesium 1.9 mg/dl (1.6-2.3); Prothrombin Time 10.9 seconds (10.1-12.5); Total Protein,Serum 7.8 g/dl (6.3-8.2)
--- NOTE | 2025-01-09 20:08 | PC.NURSE ---
230/80 before hydralazine 208/75 post medication.
[2025-01-09 20:16] LABS: NT Pro Brain Natriuretic Pep. 930 pg/mL (0-125)
[2025-01-09 20:18] LABS: Troponin I 0.05 ng/ml (0.00-0.034)
[2025-01-09] MEDS: NITROGLYCERIN IN 5 % DEXTROSE 250 ML 1.5 MG IV ×2 (20:21→23:39)
[2025-01-09] MEDS: KETAMINE 50MG/1ML SYRINGE 11 MG IV (20:26)
[2025-01-09 20:27] LABS: Total Cells Counted 100
[2025-01-09 20:28] LABS: Polychromasia 1+
[2025-01-09 20:29] LABS: Macrocytosis 1+
--- NOTE | 2025-01-09 20:29 | PC.NURSE ---
pharmacy on the phone to confirm nitro order . verbal order per provider as 400mcg/min for 2 mins. 2030- repeat EKG to be performed at this time. 2031- BP 194/69 2032- CXR at the bedside . nitro stopped at the order of 400mcg/min 0.3ml/infused 188/. 2037- nitro began at 100mcg/min (30ml/hour)
[2025-01-09 20:30] LABS: Hypochromasia 1+
--- NOTE | 2025-01-09 20:32 | ECG_ITS ---
APPROVED REPORT Exam: Resting ECG HR:80 bpm ECG Measurements Heart Rate 80 AXES GA 168 P 55 QRSd 105 QRS 54 QT 398 T 48 QTc 434 Conclusion SINUS RHYTHM Normal intervals NO stemi Electronically signed by : Dmitry Zaman, 01/10/2025 02:20:53
--- NOTE | 2025-01-09 20:45 | PC.NURSE ---
BP beginning to drop to somewhat goal level, beginning to titrate nitro drip as ordered per protocol.
[2025-01-09 20:46] LABS: Procalcitonin 0.051 ng/mL (0.0-2.0)
--- NOTE | 2025-01-09 20:52 | PC.NURSE ---
Family remains at the bedside, patient more relaxed at this time. This RN remains 1:1 with this patient
--- NOTE | 2025-01-09 21:00 | PC.NURSE ---
Hospitalist at the bedside at this time.
[2025-01-09] MEDS: FUROSEMIDE 20 MG/2 ML VIAL 80 MG IV (21:13)
--- NOTE | 2025-01-09 21:24 | EXP.HP ---
History of Present Illness *Admission Date: 01/10/25 *Reason for visit:: Shortness of breath *History of present illness: Dayana Rice is a pleasant 64-year-old female with a medical history significant for CAD, hypertension, type 2 diabetes, former smoker who presents with progressive dyspnea on exertion over the past few weeks. Patient was wrapping up her workday and walking towards her car in the lot when she began experiencing shortness of breath. She then proceeded to the ED. She states over the past few months she has been experiencing dyspnea on exertion, and was recently evaluated by cardiology on 12/28/2024. During that visit, it was noted her blood pressure was uncontrolled and her amlodipine was increased to 10 mg twice daily, started metoprolol succinate 50 mg daily, aspirin 81 mg. Cardiology also ordered ECHO and CCTA. Upon my review, CCTA shows severe calcification and significant multivessel CAD. ECHO unremarkable. Patient denies chest pain, and has been adherent to her medications. She lives at home by herself. No recent lifestyle changes, or stressors. Upon arrival to the ED, her blood pressures were 200s over 100s and she was saturating 58% on room air and escalated from nonrebreather to BiPAP after CXR showed diffuse pulmonary edema. BNP 930 (falsely low in the setting of obesity), troponin 0.05, WBC 15.2, creatinine 1.3 (baseline 1.0). She was given Solu-Medrol 125 mg, magnesium, DuoNebs, hydralazine 20 mg, and started on nitro drip. On my evaluation, patient looks comfortable on BiPAP with appropriate saturations, with improvement in pressures with SBP in the 150s. I advised Lasix 80 mg to be given. Case discussed with ED provider and decision was made to admit patient for acute hypoxic respiratory failure secondary to flash pulmonary edema from hypertensive emergency and acute HFpEF exacerbation, NSTEMI, and possible community-acquired pneumonia. [facility] Disclaimer: The information contained in this section may have been updated after the patient was seen, as this information can be updated by other users. Medical History (Updated 01/10/25 @ 03:38 by Gautam Vallejo MD) Other chest pain [place] (obstructive sleep apnea) Diabetes Hypertension Surgical History History of kidney surgery History of appendectomy Family History Mother Diabetes Coronary artery disease Hypertension Heart attack Father Diabetes Coronary artery disease Hypertension Heart attack Other Cancer Social History Smoking Status: Never smoker alcohol intake: never counseling provided: provider counseling substance use type: denies use current occupational status: employed Travel in the last 8 weeks?: None household members: none housing: house Have you lived/traveled outside US in past 30 days?: No Contact w/someone who lives/traveled outside US past 30 days?: No Exposure to someone with infectious disease in past 14 days?: No Do you have a fever (greater than 100.4 F or 38 C)?: No Have you tested positive for COVID-19?: No Exposed to someone with COVID-19 in past 14 days?: No Do you have a sore throat?: No Do you have a cough?: No Do you have any weakness?: No Do you have any diarrhea?: No Are you experiencing any unusual bleeding?: No Do you have any muscle aches/pain?: No Do you have any abdominal pain?: No Are you experiencing loss of taste or smell?: No Other Medical History Have you received the Flu Vaccine for this season: No Have you received the Pneumonia Vaccine: No Meds Home Medications and Allergies Home Medications ?Medication ?Instructions ?Recorded ?Confirmed ?Type jwgvlnys-clra-hnwyt acid 240 240 tab PO DAILY 08/17/19 01/10/25 History mcg-vit K 120 moy-eyqkkc-orfs 293 tablet (Alive Women's 50 Plus (fruit-veg blend)) red yeast rice 600 mg capsule 600 mg PO DAILY 08/17/19 01/10/25 History glucosamine HCl 500 mg tablet 500 mg PO BID 03/17/22 01/10/25 History multivitamin with minerals 1 tab PO DAILY 03/17/22 01/10/25 History (Hair,Skin and Nails tablet) omega 1-llg-rhp-fish oil 1,000 mg 1 cap PO DAILY 03/17/22 01/10/25 History (120 mg-180 mg) capsule (Fish Oil) candesartan 32 1 tab PO .COMPLEX 90 days #90 tabs 04/27/24 01/10/25 Rx mg-hydrochlorothiazide 12.5 mg tablet pen needle, diabetic 31 gauge x #100 ea 06/01/24 01/10/25 Rx 5/16 (BD Ultra-Fine Short Pen Needle) insulin glargine 100 unit/mL (3 50 unit (0.5 mL) SQ HS #3 mL 09/13/24 01/10/25 Rx mL) subcutaneous pen (Basaglar KwikPen U-100 Insulin) pioglitazone 30 mg tablet See Rx Instructions .Route 10/02/24 01/10/25 Rx .COMPLEX #30 tabs fenofibrate nanocrystallized 145 See Rx Instructions .Route 10/25/24 01/10/25 Rx mg tablet .COMPLEX #30 tabs atorvastatin 20 mg tablet See Rx Instructions .Route 11/20/24 01/10/25 Rx .COMPLEX #30 tabs amlodipine 10 mg tablet 10 mg PO BID #60 tabs 12/28/24 01/10/25 Rx metoprolol succinate 50 mg 50 mg PO DAILY #30 tabs 12/28/24 01/10/25 Rx tablet,extended release 24 hr (Toprol XL) glyburide 5 mg tablet 10 mg PO DAILY 01/10/25 01/10/25 History New Prescriptions to Start Prescriptions: Allergies Allergy/AdvReac Type Severity Reaction Status Date / Time No Known Allergies Allergy Verified 01/04/25 12:22 Exam Data for Last 24 hours Vital signs and Labs for Last 24 Hours: Temp Pulse Resp BP Pulse Ox O2 Del Method O2 Flow Rate 98.9 F 74 21 153/57 H 99 BiPAP 35 01/09/25 19:44 01/09/25 21:18 01/09/25 21:18 01/09/25 21:18 01/09/25 21:18 01/09/25 21:18 01/09/25 21:18 Laboratory Results - last 24 hr 01/09/25 19:45: WBC 15.2 H, RBC 3.90 L, Hgb 12.2, Hct 40.2, MCV 103.1 H, MCH 31.3 H, MCHC 30.3 L, RDW 13.7, Plt Count 237, MPV 12.2 H, Neut % (Auto) 52.3, Lymph % (Auto) 37.6, [place] % (Auto) 6.3, Eos % (Auto) 1.8, Baso % (Auto) 0.7, Neut # (Auto) 7.9 H, Lymph # (Auto) 5.7 H, Deuel # (Auto) 1.0, Eos # (Auto) 0.3, Baso # (Auto) 0.1, Total Counted 100, Neutrophils % (Manual) 51, Lymphocytes % (Manual) 39, Monocytes % (Manual) 4, Eosinophils % (Manual) 4 H, Basophils % (Manual) 2.0 H, Platelet Estimate Normal, Polychromasia 1+, Hypochromasia 1+, Macrocytosis 1+, PT 10.9, INR 0.98, Sodium 139, Potassium 3.8, Chloride 106, Carbon Dioxide 23, Anion Gap 13.8, BUN 30 H, Creatinine 1.30 H, Estimated Creat Clear 35, Estimated GFR 41 L, Est GFR ( Amer) 50 L, Glucose 281 H, Calcium 9.7, Magnesium 1.9, Total Bilirubin 0.3, AST 51 H, ALT 34, Alkaline Phosphatase 73, Troponin I 0.05 H, NT-Pro-B Natriuret Pep 930 H, Total Protein 7.8, Albumin 3.7, Globulin 4.1 H, Albumin/Globulin Ratio 0.9 L, Procalcitonin 0.051 I & O for Last 24 hours: Intake & Output 01/06/25 01/07/25 01/08/25 01/09/25 23:59 23:59 23:59 23:59 Intake Total 5.800 / 5.800 Balance 5.800 / 5.800 Weight 113.398 kg Constitutional Constitutional: no acute distress and obese *Routine HEENT Exam Head: Present normocephalic Eye: Present EOMI and PERRL ENT: Present mucous membranes moist *Routine Neck Exam Neck: Present supple; Absent lymphadenopathy *Routine Respiratory Exam Respiratory: Present crackles; Absent CTA bilaterally *Routine Cardiovascular Exam Cardiovascular: Present RRR *Routine Abdominal Exam Abdominal: Present soft and normoactive bowel sounds; Absent tenderness *Routine Rectal Exam Rectal:: deferred *Routine Genitalia Exam Genitalia:: deferred *Routine Extremities Exam Extremities: Absent cyanosis, clubbing or edema *Routine Skin Exam Skin: Present warm; Absent rash *Routine Neurological Exam Neurological: Present alert and oriented X3 Assessment and Plan *Assessment and plan (1) Hypertensive emergency: Status: Acute Category: Medical Code(s): I16.1 - Hypertensive emergency (2) Flash pulmonary edema: Status: Acute Category: Medical Code(s): J81.0 - Acute pulmonary edema (3) Acute hypoxemic respiratory failure: Status: Acute Category: Medical Code(s): J96.01 - Acute respiratory failure with hypoxia (4) NSTEMI (non-ST elevated myocardial infarction): Status: Acute Category: Medical Code(s): I21.4 - Non-ST elevation (NSTEMI) myocardial infarction (5) CAD (coronary artery disease): Status: Acute Category: Medical Code(s): I25.10 - Atherosclerotic heart disease of [place] coronary artery without angina pectoris Plan Dayana Rice is a pleasant 64-year-old female with a medical history significant for CAD, hypertension, type 2 diabetes, former smoker who presents with progressive dyspnea on exertion over the past few weeks. Patient was wrapping up her workday and walking towards her car in the lot when she began experiencing shortness of breath. She then proceeded to the ED. She states over the past few months she has been experiencing dyspnea on exertion, and was recently evaluated by cardiology on 12/28/2024. During that visit, it was noted her blood pressure was uncontrolled and her amlodipine was increased to 10 mg twice daily, started metoprolol succinate 50 mg daily, aspirin 81 mg. Cardiology also ordered ECHO and CCTA. Upon my review, CCTA shows severe calcification and significant multivessel CAD. ECHO unremarkable. Patient denies chest pain, and has been adherent to her medications. She lives at home by herself. No recent lifestyle changes, or stressors. Upon arrival to the ED, her blood pressures were 200s over 100s and she was saturating 58% on room air and escalated from nonrebreather to BiPAP after CXR showed diffuse pulmonary edema. BNP 930 (falsely low in the setting of obesity), troponin 0.05, WBC 15.2, creatinine 1.3 (baseline 1.0). She was given Solu-Medrol 125 mg, magnesium, DuoNebs, hydralazine 20 mg, and started on nitro drip. On my evaluation, patient looks comfortable on BiPAP with appropriate saturations, with improvement in pressures with SBP in the 150s. I advised Lasix 80 mg to be given. Case discussed with ED provider and decision was made to admit patient for acute hypoxic respiratory failure secondary to flash pulmonary edema from hypertensive emergency and acute HFpEF exacerbation, NSTEMI, and possible community-acquired pneumonia. #Acute hypoxic respiratory failure #Flash pulmonary edema #Hypertensive emergency #HFpEF exacerbation #NSTEMI type I #CAD ? Presented with progressive dyspnea on exertion, found to be in hypertensive emergency with flash pulmonary edema in the setting of NSTEMI and HFpEF exacerbation. ? Initial BP 200s over 100s with CXR showing diffuse pulmonary and peripheral edema, troponins uptrending from 0.05-0.45. ? Started on nitro drip with improvement in BP, currently 149/59. Weaned from BiPAP to 6 L nasal cannula after aggressive diuresis net -1.1 L output. Feeling of breathing much better. ? ECHO 01/04/2025 LVEF 60% without wall motion abnormalities. Increased LV wall thickness, indeterminate diastolic function. ? CCTA 01/04/2025 shows severe calcification and significant multivessel CAD. Patient is a former smoker. ? Continue nitro drip, wean as tolerated. BP goal 140/90 over the next 24 hours. ? Started irbesartan 75 mg, hold home amlodipine due to peripheral edema and candesartan/hydrochlorothiazide due to Lasix diuresis. ? Started IV Lasix 80 mg twice daily and spironolactone 50 mg, follow-up urine output, renal function, electrolytes. ? Continue home metoprolol succinate 50 mg, aspirin 81 mg. ? Follow-up A1c, TSH, lipid panel. ? Ordered ASA 325 mg and one-time dose of therapeutic Lovenox. ? Cardiology consulted, pending further recommendations. N.p.o. for likely LHC in the morning. ? Follow-up morning CMP. ? Weaned to 3 L nasal cannula, continue to wean as tolerated. Baseline room air. #Community-acquired pneumonia #Sepsis ? Initial WBC 15.2, CXR with bibasilar opacities. Likely pulmonary edema and WBC would likely reactive, but unable to rule out underlying pneumonia at this time. ? Started ceftriaxone, doxycycline day 1. ? Follow-up sputum, blood cultures. ? Follow-up morning CBC. #NATO ? Initial creatinine 1.3, baseline 1.0. In the setting of volume overload. Diuresis as above. ? Follow-up morning creatinine. #Type 2 diabetes ? Hemoglobin A1c July 2024 7.5%. ? LDSSI, ACHS glucose checks. ? Lantus 15 units nightly, titrate based on SSI. ? Consider discontinuing glyburide as patient takes Lantus 50 units at home, risk of hypoglycemia. #Obstructive sleep apnea ? Continue home BiPAP nightly. #Macrocytic anemia ? Hemoglobin 10.4, MCV 101. Follow-up B12, folate. DNR/DNI DVT prophylaxis: Lovenox 40 mg twice daily ICU/Critical care attestation This patient is critically ill with 60 minutes devoted solely to this patient managing life/organ supporting interventions that required physician assessment. This includes time spent making adjustments in ventilator settings, IV fluid administration, titration of pressors, adjustments of medications, discussion of patient with consultants and other care providers as well as updating patient and/or family (if patient by virtue of his/her condition is unable to participate in decision making). This does not include time spent performing separately billed procedures. Time is not concurrent with that of other providers.
--- NOTE | 2025-01-09 21:32 | PC.NURSE ---
pure wick in place after lasix was given. Pt given the option between yancey cath or pure wick, willingly chooses pure wick.
[2025-01-09 21:39] LABS: Hepatitis C Ab Qual. W/ RFX NEGATIVE (Negative)
--- NOTE | 2025-01-09 21:40 | PC.NURSE ---
Report given to [facility] ICU
--- NOTE | 2025-01-09 21:46 | PC.NURSE ---
Pt arrived to ICU unit @21:48 via stretcher from ED
--- NOTE | 2025-01-09 22:14 | PC.NURSE ---
Patient refused CRE swab, educated patient on this protocol, patient still refused, RN aware.
[2025-01-09 23:10] LABS: VBG HCO3 20.1 mmol/L (23-30); VBG PCO2 50.6 mmol/L (35-51); VBG PH 7.22 mmol/L (7.31-7.41); VBG PO2 66.2 mmol/L (28-40)
[2025-01-09 23:11] LABS: Lactate Venous 3.7 mmol/L (0.4-2.0)
[2025-01-09 23:19] LABS: Adenovirus,PCR Not Detected (NotDetected); Chlamydophila Pneumoniae, PCR Not Detected (NotDetected); Coronavirus 19, PCR Not Detected (NotDetected); Coronovirus HKU1,PCR Not Detected (NotDetected); Influenza A, PCR Not Detected (NotDetected); Influenza AH1, 2009 Not Detected (NotDetected); Influenza AH1, PCR Not Detected (NotDetected); Influenza AH3,PCR Not Detected (NotDetected); Influenza B, PCR Not Detected (NotDetected); Mycoplasma Pneumoniae, PCR Not Detected (NotDetected); Parainfluenza 1, PCR Not Detected (NotDetected); Parainfluenza 2, PCR Not Detected (NotDetected); Parainfluenza 3, PCR Not Detected (NotDetected); Parainfluenza 4, PCR Not Detected (NotDetected)
[2025-01-09] MEDS: SPIRONOLACTONE 25MG TABLET 50 MG PO (23:43)
[2025-01-09 23:44] LABS: Troponin I 0.14 ng/ml (0.00-0.034)
[2025-01-09] MEDS: CEFTRIAXONE 1 GM 1 GM in 0.9 % SODIUM CHLORIDE 50 ML IV (23:44)
[2025-01-10] VITALS (57 sets, daily range): BP systolic 128–194; BP diastolic 49–80; PULSE 55–74; RESP 11–27; TEMP 36.4–36.9; O2SAT 89–99; BMI 45.4
[2025-01-10] MEDS: SODIUM CHLORIDE 3% 15ML NEB 3 ML IH (00:08)
[2025-01-10] MEDS: IRBESARTAN 75MG TABLET 75 MG PO ×2 (00:48→20:32)
[2025-01-10] MEDS: DOXYCYCLINE HYCL 100 MG TABLET PO ×3 (00:50→20:32)
[2025-01-10 01:24] LABS: Reflex Lactic Add Lactic Reflex
[2025-01-10 01:54] LABS: Lactic Acid Follow Up (RFLX 1) 0.9 mmol/L (0.7-2.1)
[2025-01-10 02:09] LABS: Troponin I 0.45 ng/ml (0.00-0.034)
[2025-01-10] MEDS: ASPIRIN 325MG TABLET 325 MG PO (02:36)
--- NOTE | 2025-01-10 04:04 | ECG_ITS ---
APPROVED REPORT Exam: Resting ECG HR:63 bpm ECG Measurements Heart Rate 63 AXES SC 188 P 58 QRSd 86 QRS 44 QT 449 T 13 QTc 456 Conclusion SINUS RHYTHM POSSIBLE RIGHT VENTRICULAR CONDUCTION DELAY [RSR (QR) IN V1/V2] SEPTAL MYOCARDIAL INFARCTION , PROBABLY OLD [40+ ms Q WAVE IN V1/V2] ABNORMAL ECG UNCONFIRMED REPORT Electronically signed by : Abdulaziz Rosario MD 01/10/2025 07:55:04
[2025-01-10 05:45] LABS: Hematocrit 33.4 % (37.0-47.0); Immature Granulocytes % 1.0 %; Mean Corpuscular HGB Conc 30.8 g/dL (31.8-35.4); Mean Corpuscular Hemoglobin 31.2 pg (27.0-31.2); Mean Corpuscular Volume 101.2 fl (81-99); Nucleated Red Blood Cells % 0 %; Platelet Count 167 K/mm3 (142-424); Red Blood Count 3.30 M/mm3 (4.20-5.40); Red Cell Distribution Width-SD 49.6 fL; White Blood Count 9.0 K/mm3 (4.8-10.8)
[2025-01-10 05:50] LABS: Alanine Aminotransferase 30 U/L (12-78); Albumin Level 3.7 g/dl (3.5-5.0); Albumin/Globulin Ratio 1.4 (1.1-1.8); Alkaline Phosphatase 60 U/L (38-126); Anion Gap 11.4 mEq/L (5-15); Aspartate Amino Transferase 44 U/L (14-36); Bilirubin,Total 0.1 mg/dl (0.2-1.3); Blood Urea Nitrogen 35 mg/dl (7-17); Calcium 9.6 mg/dl (8.4-10.2); Carbon Dioxide 25 mmol/L (22.0-30.0); Chloride 107 mmol/L (98-107); Creatinine Clearance Estimated 31 mL/min (50-200); Creatinine,Serum 1.40 mg/dl (0.52-1.04); Estimated Glomerular Filt Rate 38 ml/min (>60); GFR (African American) 46 ML/MIN (>60); Globulin 2.6 g/dL (1.3-3.2); Glucose 318 mg/dl (74-100); Magnesium 1.9 mg/dl (1.6-2.3); Potassium 4.4 mmoL/L (3.5-5.1); Sodium 139 mmol/L (136-145); Total Protein,Serum 6.3 g/dl (6.3-8.2)
[2025-01-10 05:51] LABS: Hemoglobin 10.4 g/dL (12.2-16.2)
[2025-01-10 06:02] LABS: Cholesterol 146 mg/dl (140-200); HDL Cholesterol 55 mg/dl (40-60); Triglycerides 70 mg/dl (30-150)
[2025-01-10 06:18] LABS: Thyroid Stimulating Hormone 4.57 uIU/mL (0.465-4.68)
[2025-01-10 06:51] LABS: Vitamin B12 404 pg/mL (239-931)
[2025-01-10] MEDS: WHITE PETROLATUM 5GM UDP 5 GM TP (06:57)
--- OUTSIDE RECORDS SUMMARY | 2025-01-10 07:36 | XMS_ITS | Clinical Summary ---
Author Organization [facility] ystem Address [address] [place] [address] Care Team Providers Care Publishing Director Name Role Phone Saundra Muir Monserrat LINO [...] season) 2024 INFLUENZA VACCINE 03/14/2025 Care Teams Publishing Director Relationship Specialty Start Date End Date Saundra Muir, PRECIPITATOR [address] [place] [address] PCP - General Family Medicine 06/17/22
--- NOTE | 2025-01-10 08:42 | CA_ITS ---
APPROVED REPORT EXAM: Limited 2D Echocardiogram Clinical Quality Analyst: Sheila Bautista RT(R) Ht: 5 ft 3 in Wt: 256lbs BSA: 2.15 BP: 194/71 mmHg Indications: NSTEMI, CAD, DM 2D Dimensions EF AP4 55.20 % GL Strain -16.5 % M-Mode Dimensions RVDd 2.93 cm (0.9-2.6) LVDd 5.69 cm (3.5-5.7) LVDs 4.21 cm (3.5-5.7) IVSd 0.89 cm (0.6-1.1) PWd 0.98 cm (0.6-1.1) EF (Teich) 50.40% FS 26.00% EDV (Teich) 159.40 mL ESV (Teich) 79.00 mL LV Diastology E Decel Time 183 (160-240 msec) E/A Ratio 0.9 MED E' 7.8 (>= 7 cm/sec) E'/MED E' Ratio 16.01 (<= 14) LAT E' 7.0 (>= 10 cm/sec) E/LAT E' Ratio 17.84 (<= 14) Mitral Valve MV E Max Codey. 125.0 (40-130 cm/s) MV A Velocity 133.0 (40-130 cm/s) E/A Ratio 0.94 MV Decel. Time 183 (160-240 ms) Other Information Study Quality: Technically Difficult Conclusion This is a limited TTE to evaluate for LV systolic function. Limited windows are obtained. Technically difficult study. The left ventricle is normal in size. There is increased LV wall thickness. There is normal global LV systolic function. LVEF is 60%. Electronically signed by : Sobeida Gramajo MD 01/10/2025 11:32:41
[2025-01-10 08:52] LABS: Folate > 20.00 ng/mL
[2025-01-10] MEDS: SPIRONOLACTONE 25MG TABLET 50 MG PO (08:52)
[2025-01-10] MEDS: METOPROLOL SUCCINATE XL 50MG TABLET 50 MG PO (08:52)
[2025-01-10] MEDS: FUROSEMIDE 100MG/10ML VIAL 80 MG IV ×2 (08:52→16:08)
[2025-01-10] MEDS: INSULIN GLARGINE 100 UNITS/ML 3ML FLEXPEN 10 UNIT SUBCUT (08:52)
[2025-01-10 09:03] LABS: VBG HCO3 22.5 mmol/L (23-30); VBG PCO2 35.4 mmol/L (35-51); VBG PH 7.42 mmol/L (7.31-7.41); VBG PO2 53.8 mmol/L (28-40)
[2025-01-10 09:04] LABS: Lactate Venous 1.3 mmol/L (0.4-2.0)
--- NOTE | 2025-01-10 09:18 | EXP.ACUTE.PN ---
Subjective *Date: 01/10/25 *Time: 13:09 Interval history: Patient well-appearing today, decreasing in work of breathing. Stable on 3 L nasal cannula. Plans for LHC today due to NSTEMI. Medical Exam Vital signs and Labs for Last 24 Hours: Vital Signs Temp Pulse Pulse Resp BP Pulse Ox O2 Del Method 01/10/25 08:01 98.3 F 66 15 182/69 H 95 Nasal Cannula 01/10/25 07:00 Nasal Cannula 01/10/25 07:00 64 19 170/60 H 95 Nasal Cannula 01/10/25 06:00 65 14 155/62 H 97 Nasal Cannula 01/10/25 05:31 61 17 171/67 H 97 Nasal Cannula 01/10/25 05:00 64 12 154/61 H 98 Nasal Cannula 01/10/25 04:43 58 L 01/10/25 04:37 BiPAP 01/10/25 04:23 65 01/10/25 04:00 98.4 F 69 15 153/79 H 97 BiPAP 01/10/25 03:31 60 16 128/49 L 95 BiPAP 01/10/25 03:00 62 20 157/55 H 95 BiPAP 01/10/25 03:00 BiPAP 01/10/25 02:31 63 16 156/57 H 98 BiPAP 01/10/25 02:11 01/10/25 02:00 59 L 18 149/59 H 97 01/10/25 01:22 70 01/10/25 01:05 61 13 145/56 H 98 BiPAP 01/10/25 01:00 61 20 153/57 H 98 Nasal Cannula 01/10/25 01:00 BiPAP 01/10/25 00:55 64 20 160/60 H 98 Nasal Cannula 01/10/25 00:50 67 19 165/59 H 97 Nasal Cannula 01/10/25 00:45 68 16 166/61 H 97 Nasal Cannula 01/10/25 00:40 68 18 180/68 H 97 Nasal Cannula 01/10/25 00:15 69 25 H 96 Nasal Cannula 01/10/25 00:15 158/63 H 01/10/25 00:15 70 01/10/25 00:10 71 15 99 Nasal Cannula 01/10/25 00:10 155/59 H 01/10/25 00:05 70 23 97 BiPAP 01/10/25 00:05 147/70 H 01/10/25 00:01 67 27 H 98 BiPAP 01/10/25 00:00 98.2 F 97 BiPAP 01/10/25 00:00 98.2 F 66 27 H 160/57 H 98 BiPAP 01/09/25 23:00 Nasal Cannula 01/09/25 23:00 67 24 180/59 H 95 BiPAP 01/09/25 23:00 01/09/25 22:02 71 01/09/25 22:01 97.4 F L 69 24 168/61 H 97 Nasal Cannula 01/09/25 21:41 98.5 F 68 28 H 166/64 H BiPAP 01/09/25 21:30 68 12 156/55 H 100 01/09/25 21:27 67 22 158/54 H 100 01/09/25 21:25 69 23 142/61 H 99 01/09/25 21:21 69 33 H 166/50 H 99 01/09/25 21:18 74 21 153/57 H 99 BiPAP 01/09/25 21:15 71 31 H 156/54 H 100 01/09/25 21:12 Nasal Cannula 01/09/25 21:12 170/53 H 01/09/25 21:09 73 12 155/89 H 98 01/09/25 21:07 75 30 H 151/56 H 98 01/09/25 21:03 73 27 H 168/60 H 98 01/09/25 21:00 74 31 H 157/56 H 98 01/09/25 20:58 161/58 H 01/09/25 20:57 69 25 H 161/58 H 98 01/09/25 20:54 71 26 H 149/57 H 99 BiPAP 01/09/25 20:51 76 22 136/55 L 98 BiPAP 01/09/25 20:51 75 23 111/50 L 98 BiPAP 01/09/25 20:47 74 24 111/50 L 98 BiPAP 01/09/25 20:45 140/54 L 01/09/25 20:45 74 24 99 01/09/25 20:43 145/55 H 01/09/25 20:43 78 31 H 99 01/09/25 20:40 177/59 H 01/09/25 20:40 78 29 H 99 01/09/25 20:38 185/62 H 07/29/25 20:38 77 27 H 99 01/09/25 20:36 188/76 H 01/09/25 20:36 78 30 H 100 01/09/25 20:35 80 23 100 01/09/25 20:35 174/74 H 01/09/25 20:27 82 28 H 234/205 H 99 BiPAP 01/09/25 20:25 01/09/25 19:58 78 24 208/79 H 97 Aerosol Mask 01/09/25 19:50 82 40 H 240/75 H 98 Non-Rebreather 01/09/25 19:44 98.9 F 87 40 H 58 L Room Air 01/09/25 19:40 34 H 58 L Room Air O2 Flow Rate FiO2 01/10/25 08:01 2 01/10/25 07:00 2 01/10/25 07:00 3 01/10/25 06:00 6 01/10/25 05:31 6 01/10/25 05:00 01/10/25 04:43 01/10/25 04:37 01/10/25 04:23 01/10/25 04:00 01/10/25 03:31 01/10/25 03:00 01/10/25 03:00 01/10/25 02:31 01/10/25 02:11 01/10/25 02:00 01/10/25 01:22 01/10/25 01:05 01/10/25 01:00 01/10/25 01:00 01/10/25 00:55 01/10/25 00:50 01/10/25 00:45 01/10/25 00:40 6 01/10/25 00:15 6 01/10/25 00:15 01/10/25 00:15 01/10/25 00:10 01/10/25 00:10 01/10/25 00:05 01/10/25 00:05 01/10/25 00:01 01/10/25 00:00 01/10/25 00:00 35 01/09/25 23:00 6 01/09/25 23:00 35 01/09/25 23:00 01/09/25 22:02 01/09/25 22:01 6 01/09/25 21:41 01/09/25 21:30 01/09/25 21:27 01/09/25 21:25 01/09/25 21:21 01/09/25 21:18 35 01/09/25 21:15 01/09/25 21:12 6 01/09/25 21:12 01/09/25 21:09 01/09/25 21:07 01/09/25 21:03 01/09/25 21:00 01/09/25 20:58 01/09/25 20:57 01/09/25 20:54 01/09/25 20:51 01/09/25 20:51 01/09/25 20:47 01/09/25 20:45 01/09/25 20:45 01/09/25 20:43 01/09/25 20:43 01/09/25 20:40 01/09/25 20:40 01/09/25 20:38 01/09/25 20:38 01/09/25 20:36 01/09/25 20:36 01/09/25 20:35 01/09/25 20:35 01/09/25 20:27 01/09/25 20:25 50 01/09/25 19:58 01/09/25 19:50 01/09/25 19:44 01/09/25 19:40 Intake and Output 01/09/25 01/10/25 01/10/25 23:59 07:59 15:59 Intake Total 86.550 / 206.550 126.225 / 126.225 Output Total 1700 / 1700 Balance 86.550 / 206.550 -1573.775 / -1573.775 Intake: Intake, Oral Amount 120 / 120 Intake, Total IV Amount 86.550 / 86.550 6.225 / 6.225 Output: Output, Urine Amount 1700 / 1700 Other: Number of Voids 1 Weight 116.4 kg 116.4 kg Patient Weight 01/10/25 23:59 Weight 116.4 kg Laboratory Results - last 24 hr 01/09/25 19:45: WBC 15.2 H, RBC 3.90 L, Hgb 12.2, Hct 40.2, MCV 103.1 H, MCH 31.3 H, MCHC 30.3 L, RDW 13.7, Plt Count 237, MPV 12.2 H, Neut % (Auto) 52.3, Lymph % (Auto) 37.6, [place] % (Auto) 6.3, Eos % (Auto) 1.8, Baso % (Auto) 0.7, Neut # (Auto) 7.9 H, Lymph # (Auto) 5.7 H, [place] # (Auto) 1.0, Eos # (Auto) 0.3, Baso # (Auto) 0.1, Total Counted 100, Neutrophils % (Manual) 51, Lymphocytes % (Manual) 39, Monocytes % (Manual) 4, Eosinophils % (Manual) 4 H, Basophils % (Manual) 2.0 H, Platelet Estimate Normal, Polychromasia 1+, Hypochromasia 1+, Macrocytosis 1+, PT 10.9, INR 0.98, Sodium 139, Potassium 3.8, Chloride 106, Carbon Dioxide 23, Anion Gap 13.8, BUN 30 H, Creatinine 1.30 H, Estimated Creat Clear 35, Estimated GFR 41 L, Est GFR ( Amer) 50 L, Glucose 281 H, Calcium 9.7, Magnesium 1.9, Total Bilirubin 0.3, AST 51 H, ALT 34, Alkaline Phosphatase 73, Troponin I 0.05 H, NT-Pro-B Natriuret Pep 930 H, Total Protein 7.8, Albumin 3.7, Globulin 4.1 H, Albumin/Globulin Ratio 0.9 L, Procalcitonin 0.051, HCV Ab DHIRAJ w/Rflx PCR Qn Negative, HIV Ag/Ab Combo Qual Negative 01/09/25 19:48: VBG pH 7.22 L, VBG pCO2 50.6, VBG pO2 66.2 H, VBG HCO3 20.1 L, VBG Total CO2 21.6 L, VBG O2 Saturation 88.3 H, VBG Base Excess -7.7 L, VBG Lactic Acid 3.7 H 01/09/25 23:06: Chlamy pneumoniae PCR Not detected, Adenovirus (PCR) Not detected, B. pertussis DNA (PCR) Not detected, Coronavirus OC43 (PCR) Not detected, Coronavirus HKU1 (PCR) Not detected, Coronavirus 229E (PCR) Not detected, SARS-CoV-2 (PCR) Not detected, Coronavirus NL63 (PCR) Not detected, Human Metapneumovir PCR Not detected, Influenza A (H1) PCR Not detected, Influ A (H1N1/09) PCR Not detected, Influenza A (H3) PCR Not detected, Influenza Type A (PCR) Not detected, Influenza Type B (PCR) Not detected, M. pneumoniae (PCR) Not detected, Parainfluenza 1 (PCR) Not detected, Parainfluenza 2 (PCR) Not detected, Parainfluenza 3 (PCR) Not detected, Parainfluenza 4 (PCR) Not detected, RSV (PCR) Not detected, Entero/Rhino (PCR) Not detected 01/09/25 23:09: Troponin I 0.14 H 01/10/25 01:39: Lactate 0.9, Troponin I 0.45 H 01/10/25 05:15: WBC 9.0 D, RBC 3.30 L, Hgb 10.4 L D, Hct 33.4 L, MCV 101.2 H, MCH 31.2, MCHC 30.8 L, RDW 13.5, Plt Count 167 D, MPV 12.3 H, Neut % (Auto) 88.9 H, Lymph % (Auto) 8.9 L, [place] % (Auto) 0.9 L, Eos % (Auto) 0.0 L, Baso % (Auto) 0.3, Neut # (Auto) 8.0 H, Lymph # (Auto) 0.8, [place] # (Auto) 0.1, Eos # (Auto) 0.0, Baso # (Auto) 0.0, Sodium 139, Potassium 4.4, Chloride 107, Carbon Dioxide 25, Anion Gap 11.4, BUN 35 H, Creatinine 1.40 H, Estimated Creat Clear 31, Estimated GFR 38 L, Est GFR ( Amer) 46 L, Glucose 318 H, Calcium 9.6, Magnesium 1.9, Total Bilirubin 0.1 L, AST 44 H, ALT 30, Alkaline Phosphatase 60, Total Protein 6.3, Albumin 3.7, Globulin 2.6, Albumin/Globulin Ratio 1.4, Triglycerides 70, Cholesterol 146, LDL Cholesterol Direct 58.90 L, VLDL Cholesterol 14, HDL Cholesterol 55, Cholesterol/HDL Ratio 2.7, Vitamin B12 404, Folate > 20.00, TSH 4.57 01/10/25 08:38: VBG pH 7.42 H, VBG pCO2 35.4, VBG pO2 53.8 H, VBG HCO3 22.5 L, VBG Total CO2 23.6, VBG O2 Saturation 89.8 H, VBG Base Excess -2.0, VBG Lactic Acid 1.3 I & O for Labs for Last 24 Hours: Intake & Output 01/07/25 01/08/25 01/09/25 01/10/25 23:59 23:59 23:59 23:59 Intake Total 86.550 / 206.550 126.225 / 126.225 Output Total 1700 / 1700 Balance 86.550 / 206.550 -1573.775 / -1573.775 Weight 116.4 kg 116.4 kg Constitutional: Present no acute distress, morbidly obese and combative Head: Present atraumatic Eyes: Present as per HPI ENT: Present normal exam Neck: Present normal inspection; Absent lymphadenopathy Respiratory: Present crackles, diminished air movement, able to speak in complete sentences and symmetric chest movement Cardiac: Present Reg Rate and Rhythm GI: Present soft and normal bowel sounds; Absent distention or tenderness Rectal (female): Present deferred (female): Present deferred Extremities: Present normal inspection; Absent edema or calf tenderness Skin: Present intact, dry and warm; Absent rash Neuro: Present Grossly Intact, alert, awake and oriented x 3 Assessment and Plan *Assessment and plan (1) Hypertensive emergency: Status: Acute Category: Medical Code(s): I16.1 - Hypertensive emergency (2) Flash pulmonary edema: Status: Acute Category: Medical Code(s): J81.0 - Acute pulmonary edema (3) Acute hypoxemic respiratory failure: Status: Acute Category: Medical Code(s): J96.01 - Acute respiratory failure with hypoxia (4) NSTEMI (non-ST elevated myocardial infarction): Status: Acute Category: Medical Code(s): I21.4 - Non-ST elevation (NSTEMI) myocardial infarction (5) CAD (coronary artery disease): Status: Acute Category: Medical Code(s): I25.10 - Atherosclerotic heart disease of [place] coronary artery without angina pectoris Patrice Rice is a pleasant 64-year-old female with a medical history significant for CAD, hypertension, type 2 diabetes, former smoker who presents with progressive dyspnea on exertion over the past few weeks. Patient was wrapping up her workday and walking towards her car in the lot when she began experiencing shortness of breath. She then proceeded to the ED. She states over the past few months she has been experiencing dyspnea on exertion, and was recently evaluated by cardiology on 12/28/2024. During that visit, it was noted her blood pressure was uncontrolled and her amlodipine was increased to 10 mg twice daily, started metoprolol succinate 50 mg daily, aspirin 81 mg. Cardiology also ordered ECHO and CCTA. CCTA shows severe calcification and significant multivessel CAD. ECHO unremarkable. Patient denies chest pain, and has been adherent to her medications. She lives at home by herself. No recent lifestyle changes, or stressors. Upon arrival to the ED, her blood pressures were 200s over 100s and she was saturating 58% on room air and escalated from nonrebreather to BiPAP after CXR showed diffuse pulmonary edema. BNP 930 (falsely low in the setting of obesity), troponin 0.05, WBC 15.2, creatinine 1.3 (baseline 1.0). She was given Solu-Medrol 125 mg, magnesium, DuoNebs, hydralazine 20 mg, and started on nitro drip. She was initially placed on BiPAP and had appropriate saturations, she has been weaned down to 2 L nasal cannula today. Blood pressures have still been elevated systolics in the 180s, nitro drip was turned off throughout the night but restarted this morning per cardiology due to elevated systolic pressures. Patient does deny chest pain. on my evaluation, patient looks comfortable on BiPAP with appropriate saturations, with improvement in pressures with SBP in the 150s. I advised Lasix 80 mg to be given. Patient remains in the ICU for close monitoring. #Acute hypoxic respiratory failure #Flash pulmonary edema #Hypertensive emergency #HFpEF exacerbation #NSTEMI type I #CAD ?Patient stable on 2 L nasal cannula at this time, O2 saturation above 92%. ? Presented with progressive dyspnea on exertion, found to be in hypertensive emergency with flash pulmonary edema in the setting of NSTEMI and HFpEF exacerbation. ? Initial BP 200s over 100s with CXR showing diffuse pulmonary and peripheral edema, troponins uptrending from 0.05-0.45. ? Nitro drip continues, systolics remain in the 180s. ? Patient has diuresed 3.5 L since admission. Continue diuresis with Lasix 80 mg IV. ? ECHO 01/04/2025 LVEF 60% without wall motion abnormalities. Increased LV wall thickness, indeterminate diastolic function. Renal artery duplex pending. ? CCTA 01/04/2025 shows severe calcification and significant multivessel CAD. Patient is a former smoker. ? Started irbesartan 75 mg, hold home amlodipine due to peripheral edema and candesartan/hydrochlorothiazide due to Lasix diuresis. ? Continue home metoprolol succinate 50 mg, aspirin 81 mg. ? A1c 8.1, TSH 4.57, total cholesterol 146, LDL 58.9. ? Lovenox given yesterday, held today for [facility]. ? Continue to monitor electrolytes, kidney function. CBC, CMP ordered for the a.m. #Community-acquired pneumonia #Sepsis ? Initial WBC 15.2, CXR with bibasilar opacities. Repeat WBC today 9.0. Will continue to monitor ? Continue ceftriaxone and doxycycline. ? Follow-up sputum, blood cultures?pending. #NATO ? Initial creatinine 1.3, baseline 1.0. In the setting of volume overload. Diuresis as above. ? Creatinine bumped slightly to 1.4, plans to continue to monitor. #Type 2 diabetes ? Hemoglobin A1c July 2024 7.5%. Repeat 8.1% today. ? LDSSI, ACHS glucose checks. ? Lantus 15 units nightly, titrate based on SSI. ? Consider discontinuing glyburide as patient takes Lantus 50 units at home, risk of hypoglycemia. #Obstructive sleep apnea ? Continue home BiPAP nightly. #Macrocytic anemia ? Hemoglobin 10.4, MCV 101. B12 404, folate greater than 20. DNR/DNI DVT prophylaxis: Lovenox 40 mg twice daily (holding due to [facility])
--- NOTE | 2025-01-10 09:23 | HMH.PHAINT1 ---
Pharmacy Intervention Comments: MEDICATION RECONCILIATION COMPLETED ON PATIENT USING EXTERNAL FILL HISTORY FROM PHARMACY AND LSIT FROM CARDIOLOGY/PCP OFFICES. -ARNALDO JHAVERID
[2025-01-10] MEDS: NITROGLYCERIN IN 5 % DEXTROSE 250 ML 1.5 MG IV (09:35)
[2025-01-10 09:36] LABS: Hemoglobin A1C 8.1 % (4.0-6.0)
--- NOTE | 2025-01-10 09:37 | CA_ITS ---
FINAL REPORT TECHNIQUE: Ultrasound images of the kidneys were obtained. Duplex Doppler of the renal arteries, RAR and RI also obtained. Spectral analysis was performed. 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 Obesity COMPARISON: None FINDINGS: Images of the right kidney are extremely limited, and accurate measurements of the right kidney were not obtained. Limited images of the liver parenchyma demonstrate normal echogenicity. The left kidney measures 15.9 cm in length. It is normal echogenicity. There is no hydronephrosis. RI is 0.86-0.90. The renal artery/aortic ratio: 3.2. IMPRESSION: Images of the right kidney are extremely limited and nondiagnostic. Less than 60% stenosis of the left renal artery. Reviewed, Interpreted and Dictated by Lashon Serna MD Transcribed by Vernell Morales Authenticated and [facility]
--- NOTE | 2025-01-10 09:43 | EXP.CARD.CON ---
History of Present Illness History of Present Illness Consult date: 01/10/25 Requesting physician: Gautam Vallejo Consult reason: shortness of breath Chief complaint: dyspnea History of present illness: Hospitalist note:Dayana Rice is a pleasant 64-year-old female with a medical history significant for CAD, hypertension, type 2 diabetes, former smoker who presents with progressive dyspnea on exertion over the past few weeks. Patient was wrapping up her workday and walking towards her car in the lot when she began experiencing shortness of breath. She then proceeded to the ED. She states over the past few months she has been experiencing dyspnea on exertion, and was recently evaluated by cardiology on 12/28/2024. During that visit, it was noted her blood pressure was uncontrolled and her amlodipine was increased to 10 mg twice daily, started metoprolol succinate 50 mg daily, aspirin 81 mg. Cardiology also ordered ECHO and CCTA. Upon my review, CCTA shows severe calcification and significant multivessel CAD. ECHO unremarkable. Patient denies chest pain, and has been adherent to her medications. She lives at home by herself. No recent lifestyle changes, or stressors. Upon arrival to the ED, her blood pressures were 200s over 100s and she was saturating 58% on room air and escalated from nonrebreather to BiPAP after CXR showed diffuse pulmonary edema. BNP 930 (falsely low in the setting of obesity), troponin 0.05, WBC 15.2, creatinine 1.3 (baseline 1.0). She was given Solu-Medrol 125 mg, magnesium, DuoNebs, hydralazine 20 mg, and started on nitro drip. On my evaluation, patient looks comfortable on BiPAP with appropriate saturations, with improvement in pressures with SBP in the 150s. I advised Lasix 80 mg to be given. Case discussed with ED provider and decision was made to admit patient for acute hypoxic respiratory failure secondary to flash pulmonary edema from hypertensive emergency and acute HFpEF exacerbation, NSTEMI, and possible community-acquired pneumonia. Cardiology note: This is a 64 year old white female with past medical history significant for former smoker, HTN, DM II and hyperlipidemia who is currently admitted for acute hypoxic respiratory failure secondary to acute HFpEF exacerbation and NSTEMI. Patient reports progressive and worsening SOA over the past few week. Symptoms progressed throughout yesterday. Patient reports after work yesterday she couldnt make it to her car due to SOA. Patient also endorses intermittent left sided chest discomfort over the past few weeks and increased bilateral LE edema since recent increase in amlodipine. Upon presentation to ER ekg showed NSR rate 81 and was negative for stemi. Patient was hypertensive on presentation with systolic > 200. Chest xray was concerning for pulmonary edema. Patient was given lasix 80mg IV x 1 in ER and started on nitro drip with improvement of symptoms. Initial Trop was 0.05 trending up to 0.45. BNP is 930. This morning patient continues to have dyspnea and requires oxygen but reports over all is feeling better. Patient had recent echo this month which showed a normal EF. Repeat limited echo pending. Patient also had a recent CCTA, results are pending. [facility] Disclaimer: The information contained in this section may have been updated after the patient was seen, as this information can be updated by other users. Medical History (Updated 01/10/25 @ 10:07 by Mehreen Valentine APRN) Other chest pain [place] (obstructive sleep apnea) Diabetes Hypertension Surgical History History of kidney surgery History of appendectomy Family History Mother Diabetes Coronary artery disease Hypertension Heart attack Father Diabetes Coronary artery disease Hypertension Heart attack Other Cancer Social History Smoking Status: Never smoker alcohol intake: never counseling provided: provider counseling substance use type: denies use current occupational status: employed Travel in the last 8 weeks?: None household members: none housing: house Review of Systems Review of Systems Review of systems:: pertinent systems reviewed and negative unless documented below *Cardiovascular Cardiovascular: Reports chest pain at rest and Reports dyspnea Comments: Bilateral LE edema *Respiratory Respiratory: Reports dyspnea Exam Data for Last 24 hours Vital signs and Labs for Last 24 Hours: Temp Pulse Resp BP Pulse Ox O2 Del Method O2 Flow Rate 98.3 F 70 16 194/71 H 96 Nasal Cannula 2 01/10/25 08:01 01/10/25 09:01 01/10/25 09:01 01/10/25 09:01 01/10/25 09:01 01/10/25 09:01 01/10/25 09:01 FiO2 35 01/10/25 04:37 Laboratory Results - last 24 hr 01/09/25 19:45: WBC 15.2 H, RBC 3.90 L, Hgb 12.2, Hct 40.2, MCV 103.1 H, MCH 31.3 H, MCHC 30.3 L, RDW 13.7, Plt Count 237, MPV 12.2 H, Neut % (Auto) 52.3, Lymph % (Auto) 37.6, [place] % (Auto) 6.3, Eos % (Auto) 1.8, Baso % (Auto) 0.7, Neut # (Auto) 7.9 H, Lymph # (Auto) 5.7 H, [place] # (Auto) 1.0, Eos # (Auto) 0.3, Baso # (Auto) 0.1, Total Counted 100, Neutrophils % (Manual) 51, Lymphocytes % (Manual) 39, Monocytes % (Manual) 4, Eosinophils % (Manual) 4 H, Basophils % (Manual) 2.0 H, Platelet Estimate Normal, Polychromasia 1+, Hypochromasia 1+, Macrocytosis 1+, PT 10.9, INR 0.98, Sodium 139, Potassium 3.8, Chloride 106, Carbon Dioxide 23, Anion Gap 13.8, BUN 30 H, Creatinine 1.30 H, Estimated Creat Clear 35, Estimated GFR 41 L, Est GFR ( Amer) 50 L, Glucose 281 H, Calcium 9.7, Magnesium 1.9, Total Bilirubin 0.3, AST 51 H, ALT 34, Alkaline Phosphatase 73, Troponin I 0.05 H, NT-Pro-B Natriuret Pep 930 H, Total Protein 7.8, Albumin 3.7, Globulin 4.1 H, Albumin/Globulin Ratio 0.9 L, Procalcitonin 0.051, HCV Ab DHIRAJ w/Rflx PCR Qn Negative, HIV Ag/Ab Combo Qual Negative 01/09/25 19:48: VBG pH 7.22 L, VBG pCO2 50.6, VBG pO2 66.2 H, VBG HCO3 20.1 L, VBG Total CO2 21.6 L, VBG O2 Saturation 88.3 H, VBG Base Excess -7.7 L, VBG Lactic Acid 3.7 H 01/09/25 23:06: Chlamy pneumoniae PCR Not detected, Adenovirus (PCR) Not detected, B. pertussis DNA (PCR) Not detected, Coronavirus OC43 (PCR) Not detected, Coronavirus HKU1 (PCR) Not detected, Coronavirus 229E (PCR) Not detected, SARS-CoV-2 (PCR) Not detected, Coronavirus NL63 (PCR) Not detected, Human Metapneumovir PCR Not detected, Influenza A (H1) PCR Not detected, Influ A (H1N1/09) PCR Not detected, Influenza A (H3) PCR Not detected, Influenza Type A (PCR) Not detected, Influenza Type B (PCR) Not detected, M. pneumoniae (PCR) Not detected, Parainfluenza 1 (PCR) Not detected, Parainfluenza 2 (PCR) Not detected, Parainfluenza 3 (PCR) Not detected, Parainfluenza 4 (PCR) Not detected, RSV (PCR) Not detected, Entero/Rhino (PCR) Not detected 01/09/25 23:09: Troponin I 0.14 H 01/10/25 01:39: Lactate 0.9, Troponin I 0.45 H 01/10/25 05:15: WBC 9.0 D, RBC 3.30 L, Hgb 10.4 L D, Hct 33.4 L, MCV 101.2 H, MCH 31.2, MCHC 30.8 L, RDW 13.5, Plt Count 167 D, MPV 12.3 H, Neut % (Auto) 88.9 H, Lymph % (Auto) 8.9 L, [place] % (Auto) 0.9 L, Eos % (Auto) 0.0 L, Baso % (Auto) 0.3, Neut # (Auto) 8.0 H, Lymph # (Auto) 0.8, [place] # (Auto) 0.1, Eos # (Auto) 0.0, Baso # (Auto) 0.0, Sodium 139, Potassium 4.4, Chloride 107, Carbon Dioxide 25, Anion Gap 11.4, BUN 35 H, Creatinine 1.40 H, Estimated Creat Clear 31, Estimated GFR 38 L, Est GFR ( Amer) 46 L, Glucose 318 H, Hemoglobin A1c 8.1 H, Calcium 9.6, Magnesium 1.9, Total Bilirubin 0.1 L, AST 44 H, ALT 30, Alkaline Phosphatase 60, Total Protein 6.3, Albumin 3.7, Globulin 2.6, Albumin/Globulin Ratio 1.4, Triglycerides 70, Cholesterol 146, LDL Cholesterol Direct 58.90 L, VLDL Cholesterol 14, HDL Cholesterol 55, Cholesterol/HDL Ratio 2.7, Vitamin B12 404, Folate > 20.00, TSH 4.57 01/10/25 08:38: VBG pH 7.42 H, VBG pCO2 35.4, VBG pO2 53.8 H, VBG HCO3 22.5 L, VBG Total CO2 23.6, VBG O2 Saturation 89.8 H, VBG Base Excess -2.0, VBG Lactic Acid 1.3 I & O for Last 24 hours: Intake & Output 01/07/25 01/08/25 01/09/25 01/10/25 23:59 23:59 23:59 23:59 Intake Total 86.550 / 206.550 144.225 / 144.225 Output Total 2500 / 2500 Balance 86.550 / 206.550 -2355.775 / -2355.775 Weight 256 lb 9.889 oz 256 lb 9.889 oz Constitutional Constitutional: no acute distress *Routine Respiratory Exam Respiratory: Present crackles (Bilaterally) and symmetric chest movement *Routine Cardiovascular Exam Cardiovascular: Present RRR, Normal S1 and Normal S2 *Routine Abdominal Exam Abdominal: Present soft and normoactive bowel sounds; Absent tenderness *Routine Extremities Exam Extremities: Present edema, full ROM and normal capillary refill *Routine Skin Exam Skin: Present intact, dry and warm Detailed Neck Exam: Thyroids Thyroid: Absent bruit Meds Home Medications and Allergies Home Medications ?Medication ?Instructions ?Recorded ?Confirmed ?Type red yeast rice 600 mg capsule 600 mg PO DAILY 08/17/19 01/10/25 History glucosamine HCl 500 mg tablet 500 mg PO BID 03/17/22 01/10/25 History multivitamin with minerals 1 tab PO DAILY 03/17/22 01/10/25 History (Hair,Skin and Nails tablet) omega 7-kbr-yxr-fish oil 1,000 mg 1 cap PO DAILY 03/17/22 01/10/25 History (120 mg-180 mg) capsule (Fish Oil) pen needle, diabetic 31 gauge x #100 ea 06/01/24 01/10/25 Rx 5/16 (BD Ultra-Fine Short Pen Needle) fenofibrate nanocrystallized 145 See Rx Instructions .Route 10/25/24 01/10/25 Rx mg tablet .COMPLEX #30 tabs amlodipine 10 mg tablet 10 mg PO BID #60 tabs 12/28/24 01/10/25 Rx metoprolol succinate 50 mg 50 mg PO DAILY #30 tabs 12/28/24 01/10/25 Rx tablet,extended release 24 hr (Toprol XL) atorvastatin 20 mg tablet 20 mg PO HS 01/10/25 01/10/25 History candesartan 32 1 tab PO DAILY 01/10/25 01/10/25 History mg-hydrochlorothiazide 12.5 mg tablet glyburide 5 mg tablet 10 mg PO BID 01/10/25 01/10/25 History insulin glargine 100 unit/mL (3 50 unit (0.5 mL) SQ HS #3 mL 01/10/25 01/10/25 Rx mL) subcutaneous pen (Basaglar KwikPen U-100 Insulin) pioglitazone 30 mg tablet 30 mg PO DAILY 01/10/25 01/10/25 History New Prescriptions to Start Prescriptions: Allergies Allergy/AdvReac Type Severity Reaction Status Date / Time No Known Allergies Allergy Verified 01/04/25 12:22 Assessment and Plan *Assessment and plan (1) CAD (coronary artery disease): Status: Acute Category: Medical Code(s): I25.10 - Atherosclerotic heart disease of [place] coronary artery without angina pectoris (2) NSTEMI (non-ST elevated myocardial infarction): Status: Acute Category: Medical Code(s): I21.4 - Non-ST elevation (NSTEMI) myocardial infarction (3) Hypertensive emergency: Status: Acute Category: Medical Code(s): I16.1 - Hypertensive emergency (4) Acute hypoxemic respiratory failure: Status: Acute Category: Medical Code(s): J96.01 - Acute respiratory failure with hypoxia (5) Hypertension: Status: Chronic Qualifiers: Hypertension type: unspecified Qualified Code(s): I10 - Essential (primary) hypertension Category: Medical Code(s): I10 - Essential (primary) hypertension (6) Diabetes: Status: Chronic Qualifiers: Diabetes mellitus complication status: without complication 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 Diabetes mellitus type: type 2 Qualified Code(s): E11.9 - Type 2 diabetes mellitus without complications; 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 Discussed risk versus benefits with patient and she is agreeable to proceed. Acute HFpEF Acute hypoxic respiratory failure Chest x-ray on admission concerning for bilateral pulmonary edema Bilateral lower extremity edema present Echo 12/2024 shows a normal biventricular function. Repeat limited echo shows no change in EF. Official read is pending Continue Lasix 80 mg IV twice daily and Aldactone 50 mg p.o. daily. Hypertension Continue nitro drip Continue diuresis Continue irbesartan 75 mg p.o. daily and metoprolol succinate 50 mg p.o. daily Hyperlipidemia LDL goal less than 55, LDL is 58. Continue statin Diabetes mellitus is present Will defer to primary service. That addition of Jardiance and Ozempic prior to discharge. Acute kidney injury Creatinine 1.3 trending up to 1.4. Baseline is 1. Continue to monitor closely CV summary 01/10/2025: Patient continues to require oxygen to maintain oxygen saturation greater than 92%. Bilateral lower extremity edema is present and bilateral crackles noted in lung bases. Recommend to continue to diurese patient with Lasix 80 mg IV twice daily and Aldactone 50 mg p.o. daily. Patient will need left heart catheterization for coronary artery disease-will plan to proceed later this afternoon after patient has had more diuresis if patient can tolerate. If not we will plan for left heart catheterization tomorrow morning. Cardiac Meds: Atorvastatin 40 mg p.o. daily Irbesartan 75 mg p.o. daily Toprol 50 mg p.o. daily Lasix 80 mg IV twice daily Aldactone 50 mg p.o. daily Nitro drip
--- NOTE | 2025-01-10 10:10 | EXP.PULM.CON ---
History of Present Illness History of present illness: Ms. Rice is a pleasant 64-year-old female with reported history of CAD hypertension diabetes mellitus presented with progressive worsening respiratory distress pulmonary was called for further evaluation and management. Upon initial evaluation patient found to be having uncontrolled blood pressure at 200s over 100s with hypoxia. Not using any inhalers or oxygen supplementation at baseline but admits gradually worsening respiratory distress symptoms for the last 4 to 5 days. [facility] Disclaimer: The information contained in this section may have been updated after the patient was seen, as this information can be updated by other users. Medical History (Updated 01/10/25 @ 10:07 by Mehreen Valentine APRN) Other chest pain EASTON (obstructive sleep apnea) Diabetes Hypertension Surgical History History of kidney surgery History of appendectomy Family History Mother Diabetes Coronary artery disease Hypertension Heart attack Father Diabetes Coronary artery disease Hypertension Heart attack Other Cancer Social History Smoking Status: Never smoker alcohol intake: never counseling provided: provider counseling substance use type: denies use current occupational status: employed Travel in the last 8 weeks?: None household members: none housing: house Review of Systems Constitutional Constitutional: Reports anorexia, Reports body ache(s) and Reports fatigue Eyes Eyes: Denies eye discharge, Denies dry eyes, Denies irritation and Denies itchy eyes ENT Ears, Nose, Mouth, and Throat: Denies epistaxis, Denies facial pain, Denies lip swelling and Denies throat swelling *Cardiovascular Cardiovascular: Reports dyspnea, Reports dyspnea on exertion and Reports leg edema *Respiratory Respiratory: Reports chest congestion, Reports dyspnea, Reports dyspnea on exertion, Denies excessive phlegm production, Denies hemoptysis, Denies pain on inspiration, Denies pain with cough and Denies wheezing *Gastrointestinal Gastrointestinal: Denies abdominal pain, Denies belching and Denies cramping *Musculoskeletal Musculoskeletal: Denies myalgias Psychiatric Psychiatric: Denies homicidal ideation and Denies suicidal ideation Endocrine Endocrine: Reports fatigue and Denies heat intolerance Hematologic/Lymphatic Hematologic/Lymphatic: Denies easy bleeding and Denies lymphadenopathy Allergic/Immunologic Allergic/Immunologic: Denies itchy eyes, Denies lip swelling, Denies throat swelling and Denies wheezing Pulmonology Exam Inpatient Vital signs and Labs for Last 24 Hours: Temp Pulse Resp BP Pulse Ox O2 Del Method O2 Flow Rate 98.3 F 70 16 194/71 H 96 Nasal Cannula 2 01/10/25 08:01 01/10/25 09:01 01/10/25 09:01 01/10/25 09:01 01/10/25 09:01 01/10/25 09:01 01/10/25 09:01 FiO2 35 01/10/25 04:37 Laboratory Results - last 24 hr 01/09/25 19:45: WBC 15.2 H, RBC 3.90 L, Hgb 12.2, Hct 40.2, MCV 103.1 H, MCH 31.3 H, MCHC 30.3 L, RDW 13.7, Plt Count 237, MPV 12.2 H, Neut % (Auto) 52.3, Lymph % (Auto) 37.6, [place] % (Auto) 6.3, Eos % (Auto) 1.8, Baso % (Auto) 0.7, Neut # (Auto) 7.9 H, Lymph # (Auto) 5.7 H, [place] # (Auto) 1.0, Eos # (Auto) 0.3, Baso # (Auto) 0.1, Total Counted 100, Neutrophils % (Manual) 51, Lymphocytes % (Manual) 39, Monocytes % (Manual) 4, Eosinophils % (Manual) 4 H, Basophils % (Manual) 2.0 H, Platelet Estimate Normal, Polychromasia 1+, Hypochromasia 1+, Macrocytosis 1+, PT 10.9, INR 0.98, Sodium 139, Potassium 3.8, Chloride 106, Carbon Dioxide 23, Anion Gap 13.8, BUN 30 H, Creatinine 1.30 H, Estimated Creat Clear 35, Estimated GFR 41 L, Est GFR ( Amer) 50 L, Glucose 281 H, Calcium 9.7, Magnesium 1.9, Total Bilirubin 0.3, AST 51 H, ALT 34, Alkaline Phosphatase 73, Troponin I 0.05 H, NT-Pro-B Natriuret Pep 930 H, Total Protein 7.8, Albumin 3.7, Globulin 4.1 H, Albumin/Globulin Ratio 0.9 L, Procalcitonin 0.051, HCV Ab DHIRAJ w/Rflx PCR Qn Negative, HIV Ag/Ab Combo Qual Negative 01/09/25 19:48: VBG pH 7.22 L, VBG pCO2 50.6, VBG pO2 66.2 H, VBG HCO3 20.1 L, VBG Total CO2 21.6 L, VBG O2 Saturation 88.3 H, VBG Base Excess -7.7 L, VBG Lactic Acid 3.7 H 01/09/25 23:06: Chlamy pneumoniae PCR Not detected, Adenovirus (PCR) Not detected, B. pertussis DNA (PCR) Not detected, Coronavirus OC43 (PCR) Not detected, Coronavirus HKU1 (PCR) Not detected, Coronavirus 229E (PCR) Not detected, SARS-CoV-2 (PCR) Not detected, Coronavirus NL63 (PCR) Not detected, Human Metapneumovir PCR Not detected, Influenza A (H1) PCR Not detected, Influ A (H1N1/09) PCR Not detected, Influenza A (H3) PCR Not detected, Influenza Type A (PCR) Not detected, Influenza Type B (PCR) Not detected, M. pneumoniae (PCR) Not detected, Parainfluenza 1 (PCR) Not detected, Parainfluenza 2 (PCR) Not detected, Parainfluenza 3 (PCR) Not detected, Parainfluenza 4 (PCR) Not detected, RSV (PCR) Not detected, Entero/Rhino (PCR) Not detected 01/09/25 23:09: Troponin I 0.14 H 01/10/25 01:39: Lactate 0.9, Troponin I 0.45 H 01/10/25 05:15: WBC 9.0 D, RBC 3.30 L, Hgb 10.4 L D, Hct 33.4 L, MCV 101.2 H, MCH 31.2, MCHC 30.8 L, RDW 13.5, Plt Count 167 D, MPV 12.3 H, Neut % (Auto) 88.9 H, Lymph % (Auto) 8.9 L, [place] % (Auto) 0.9 L, Eos % (Auto) 0.0 L, Baso % (Auto) 0.3, Neut # (Auto) 8.0 H, Lymph # (Auto) 0.8, [place] # (Auto) 0.1, Eos # (Auto) 0.0, Baso # (Auto) 0.0, Sodium 139, Potassium 4.4, Chloride 107, Carbon Dioxide 25, Anion Gap 11.4, BUN 35 H, Creatinine 1.40 H, Estimated Creat Clear 31, Estimated GFR 38 L, Est GFR ( Amer) 46 L, Glucose 318 H, Hemoglobin A1c 8.1 H, Calcium 9.6, Magnesium 1.9, Total Bilirubin 0.1 L, AST 44 H, ALT 30, Alkaline Phosphatase 60, Total Protein 6.3, Albumin 3.7, Globulin 2.6, Albumin/Globulin Ratio 1.4, Triglycerides 70, Cholesterol 146, LDL Cholesterol Direct 58.90 L, VLDL Cholesterol 14, HDL Cholesterol 55, Cholesterol/HDL Ratio 2.7, Vitamin B12 404, Folate > 20.00, TSH 4.57 01/10/25 08:38: VBG pH 7.42 H, VBG pCO2 35.4, VBG pO2 53.8 H, VBG HCO3 22.5 L, VBG Total CO2 23.6, VBG O2 Saturation 89.8 H, VBG Base Excess -2.0, VBG Lactic Acid 1.3 I & O for Labs for Last 24 Hours: Intake & Output 01/07/25 01/08/25 01/09/25 01/10/25 23:59 23:59 23:59 23:59 Intake Total 86.550 / 206.550 144.900 / 144.900 Output Total 2500 / 2500 Balance 86.550 / 206.550 -2355.100 / -2355.100 Weight 256 lb 9.889 oz 256 lb 9.889 oz Constitutional: Present mild distress Head: Present normocephalic and atraumatic ENT: Present normal exam, normal oropharynx and mucous membranes moist Neck: Present normal inspection and full ROM Respiratory: Present able to speak in complete sentences; Absent prolonged expiratory phase, respiratory distress, wheezes or diminished air movement Cardiac: Present S1/S2, Tachycardia and radial pulses present GI: Present soft and distention; Absent tenderness or guarding Rectal (female): Present deferred (female): Present deferred Skin: Present intact; Absent cyanosis or jaundice Neuro: Present alert, awake and oriented x 3 Extremities: Present normal inspection and edema; Absent clubbing or cyanosis Psychiatric: Present normal affect and cooperative Meds Home Medications and Allergies Home Medications ?Medication ?Instructions ?Recorded ?Confirmed ?Type red yeast rice 600 mg capsule 600 mg PO DAILY 08/17/19 01/10/25 History glucosamine HCl 500 mg tablet 500 mg PO BID 03/17/22 01/10/25 History multivitamin with minerals 1 tab PO DAILY 03/17/22 01/10/25 History (Hair,Skin and Nails tablet) omega 0-uvb-wga-fish oil 1,000 mg 1 cap PO DAILY 03/17/22 01/10/25 History (120 mg-180 mg) capsule (Fish Oil) pen needle, diabetic 31 gauge x #100 ea 06/01/24 01/10/25 Rx 5/16 (BD Ultra-Fine Short Pen Needle) fenofibrate nanocrystallized 145 See Rx Instructions .Route 10/25/24 01/10/25 Rx mg tablet .COMPLEX #30 tabs amlodipine 10 mg tablet 10 mg PO BID #60 tabs 12/28/24 01/10/25 Rx metoprolol succinate 50 mg 50 mg PO DAILY #30 tabs 12/28/24 01/10/25 Rx tablet,extended release 24 hr (Toprol XL) atorvastatin 20 mg tablet 20 mg PO HS 01/10/25 01/10/25 History candesartan 32 1 tab PO DAILY 01/10/25 01/10/25 History mg-hydrochlorothiazide 12.5 mg tablet glyburide 5 mg tablet 10 mg PO BID 01/10/25 01/10/25 History insulin glargine 100 unit/mL (3 50 unit (0.5 mL) SQ HS #3 mL 01/10/25 01/10/25 Rx mL) subcutaneous pen (Basaglar KwikPen U-100 Insulin) pioglitazone 30 mg tablet 30 mg PO DAILY 01/10/25 01/10/25 History New Prescriptions to Start Prescriptions: Allergies Allergy/AdvReac Type Severity Reaction Status Date / Time No Known Allergies Allergy Verified 01/04/25 12:22 Results Laboratory Findings 01/10/25 05:15 01/10/25 05:15 PT/INR, D-dimer PT 10.9 seconds (10.1-12.5) 01/09/25 19:45 INR 0.98 (0.9-1.1) 01/09/25 19:45 Abnormal lab findings: Abnormal Labs 01/09/25 01/09/25 01/09/25 19:45 19:48 23:09 WBC 15.2 H RBC 3.90 L Hgb Hct MCV 103.1 H MCH 31.3 H MCHC 30.3 L MPV 12.2 H Neut % (Auto) Lymph % (Auto) [place] % (Auto) Eos % (Auto) Neut # (Auto) 7.9 H Lymph # (Auto) 5.7 H Eosinophils % (Manual) 4 H Basophils % (Manual) 2.0 H VBG pH 7.22 L VBG pO2 66.2 H VBG HCO3 20.1 L VBG Total CO2 21.6 L VBG O2 Saturation 88.3 H VBG Base Excess -7.7 L VBG Lactic Acid 3.7 H BUN 30 H Creatinine 1.30 H Estimated GFR 41 L Est GFR ( Amer) 50 L Glucose 281 H Hemoglobin A1c Total Bilirubin AST 51 H Troponin I 0.05 H 0.14 H NT-Pro-B Natriuret Pep 930 H Globulin 4.1 H Albumin/Globulin Ratio 0.9 L LDL Cholesterol Direct 01/10/25 01/10/25 01/10/25 01:39 05:15 08:38 WBC RBC 3.30 L Hgb 10.4 L D Hct 33.4 L MCV 101.2 H MCH MCHC 30.8 L MPV 12.3 H Neut % (Auto) 88.9 H Lymph % (Auto) 8.9 L [place] % (Auto) 0.9 L Eos % (Auto) 0.0 L Neut # (Auto) 8.0 H Lymph # (Auto) Eosinophils % (Manual) Basophils % (Manual) VBG pH 7.42 H VBG pO2 53.8 H VBG HCO3 22.5 L VBG Total CO2 VBG O2 Saturation 89.8 H VBG Base Excess VBG Lactic Acid BUN 35 H Creatinine 1.40 H Estimated GFR 38 L Est GFR ( Amer) 46 L Glucose 318 H Hemoglobin A1c 8.1 H Total Bilirubin 0.1 L AST 44 H Troponin I 0.45 H NT-Pro-B Natriuret Pep Globulin Albumin/Globulin Ratio LDL Cholesterol Direct 58.90 L Assessment and Plan *Assessment and plan (1) Acute hypoxemic respiratory failure: Status: Acute Category: Medical Code(s): J96.01 - Acute respiratory failure with hypoxia (2) Pneumonia: Status: Acute Category: Medical Code(s): J18.9 - Pneumonia, unspecified organism Plan Ms. Rice is a pleasant 64-year-old female with reported history of CAD hypertension diabetes mellitus presented with progressive worsening respiratory distress pulmonary was called for further evaluation and management. Upon initial evaluation patient found to be having uncontrolled blood pressure at 200s over 100s with hypoxia. Not using any inhalers or oxygen supplementation at baseline but admits gradually worsening respiratory distress symptoms for the last 4 to 5 days. Afebrile. Hemodynamically stable. Neutrophilic predominant leukocytosis improving. Procalcitonin within normal limits at 0.051. Currently receiving ceftriaxone Chest x-ray bilateral coarse interstitial changes can well be a combination of underlying pulmonary fibrosis from COVID-[address] findings at that point of time along with possible flash pulmonary edema. Cannot completely rule out airspace disease Chest no significant wheezing but improving oxygen requirements, on 3 L saturating 98%, continue to wean as tolerated. Plan: Incentive spirometer Continue ceftriaxone doxycycline pending blood and sputum culture results, given the concerning right greater than left lower lobe infiltrates. No need for steroids from pulmonary standpoint DuoNebs 4 times daily as needed Continue oxygen supplementation to maintain O2 saturation goal of 90 to 95%. Wean as tolerated. For the noted underlying possible interstitial changes will follow as an outpatient basis with full PFT and walk testing # Thank you for involving pulmonary in this patient care. Will continue to follow.
[2025-01-10 10:24] LABS: POC Glucose,Bedside 314 (70-110)
[2025-01-10 10:24] LABS: POC Glucose,Bedside 307 (70-110)
[2025-01-10] MEDS: humaLOG 100 UNITS/ML 10ML VIAL (SSI) SUBCUT ×3 (11:23→21:30)
[2025-01-10 11:36] LABS: D-Dimer 1.39 ug/mL (0.0-0.5)
[2025-01-10 11:41] LABS: POC Glucose,Bedside 241 (70-110)
--- NOTE | 2025-01-10 11:41 | IR_ITS ---
APPROVED REPORT Patient Location: Inpatient [employer] Worker: JOÃO Gutierrez RT (R) PROCEDURES Left heart catheterization Left ventriculogram Selective coronary angiogram Intravascular ultrasound to the dominant right coronary Drug-eluting stent deployment to the proximal and mid dominant right coronary INDICATION Acute non-ST elevation myocardial infarction, Coronary artery disease, IVUS guidance for complex angiography/intervention Informed consent was obtained prior to the procedure. COMPLICATIONS NONE Estimated Blood Loss: LESS THAN 10 ML TECHNIQUE One percent lidocaine used to anesthetize the right anterior aspect of the wrist. The right radial artery was accessed via the Seldinger technique. A 6 [place] sheath was placed in the right radial artery. 2.5 mg of Verapamil, 800 mcg of nitroglycerin, 1mg Lidocaine and 5000 U Heparin were given through the arterial sheath. The JL3 catheter was also used to perform left heart catheterization, left ventriculogram and selective coronary angiogram. At the end the diagnostic angiogram therapeutic heparin was administered giving a therapeutic ACT and the guide catheter was placed in the right coronary artery followed by a Choice PT extra-support wire placed distally. A 3 mm x 12 mm noncompliant balloon was deployed at 20 rosendo to predilate the stenosis. A guide liner was advanced and a 3.5 x 38 mm Ryan frontier stent was deployed at 18 rosendo reducing the stenosis. A 4 mm x 18 mm [place] frontier stent was placed proximal to the for stent yet still overlapping and deployed at 20 rosendo. The balloon was advanced to balloon lengths and then deployed at 20 rosendo to post dilate. Excellent angiographic results were obtained. Following this intravascular ultrasound probe was reinserted demonstrated excellent stent expansion with excellent proximal and distal transitioning. At the end the procedure the apparatus was removed the sheath was removed and hemostasis was achieved using TR banding patient was transferred to the postop boarding in stable condition ANGIOGRAPHIC RESULTS The left main artery Normal The left anterior descending artery Proximal 10% luminal irregularities and gives rise to a large multi branching first septal commercial door installer. The mid LAD then has a concentric 40 to 50% stenosis immediately proximal to a large branching second septal commercial door installer. The remaining LAD is tortuous with 30% distal stenoses. It gives rise to 1 small first diagonal artery The circumflex artery Is nondominant and has proximal and mid vessel 40% calcified stenosis The right coronary artery Large and dominant with proximal calcified 50% an eccentric 70% followed by concentric calcified 90% stenosis. Distally there is 40% stenosis with an eccentric 40 to 50% stenosis and a proximal large posterior descending artery with distal 80% stenosis in the posterior descending artery. A large posterolateral branch is widely patent The RATLIFF ventriculogram reveals Preserved 55% The left ventricular end-diastolic pressure 25 mmHg IMPRESSION Severe to critical dominant right disease as described above Successful stenting of the proximal to mid dominant right coronary severe to critical disease reduced to less than 10% with 2 contiguous drug-eluting stents Preserved ejection fraction Persistent moderate disease in the mid LAD as described above Elevated LVEDP PLAN 1. Effient and aspirin 2. Control of hypertension 3. Evaluate renal duplex and possibly consider repeat angiography looking at the renal arteries if renal artery stenosis is suspected 4. LDL less than 55 to be achieved with high intensity statin 5. May be reasonable to start patient on long-acting nitrates to reduce coronary spasm from stretching of the heavily calcified critically diseased dominant right coronary 6. Cardiac rehabilitation 7. Avoidance of tobacco products Electronically signed by : Bryn Romero MD 01/10/2025 14:07:22
--- NOTE | 2025-01-10 12:46 | PC.NURSE ---
leaving with cathlab at this time
[2025-01-10] MEDS: VERAPAMIL 2.5MG/ML 2ML VIAL 2.5 MG IV (13:05)
[2025-01-10] MEDS: HEPARIN 1,000 UNITS/500ML NS (CATH LAB) 3000 UNIT IV (13:05)
[2025-01-10] MEDS: NITROGLYCERIN 800MCG/8ML SYR (CATH LAB) 800 MCG IA (13:05)
[2025-01-10] MEDS: 0.9 % SODIUM CHLORIDE 500 ML 25 ML IV (13:05)
[2025-01-10] MEDS: HEPARIN 1,000 UNITS/ML 10ML VIAL (CATH LAB) 5000 UNIT IV ×2 (13:05→13:23)
[2025-01-10] MEDS: LIDOCAINE 1% 10ML MDV 10 ML IJ (13:06)
[2025-01-10] MEDS: FENTANYL 100MCG/2ML VIAL 25 MCG IV (13:20)
[2025-01-10] MEDS: MIDAZOLAM HCL 1MG/ML 5ML VIAL 1 MG IV (13:20)
[2025-01-10] MEDS: LABETALOL 20MG/4ML SYRINGE 20 MG IV (13:36)
[2025-01-10] MEDS: PRASUGREL 10MG TAB 60 MG PO (13:41)
[2025-01-10] MEDS: NITROGLYCERIN SPRAY 0.4MG/SPRAY 4.9GM 0.4 MG TL (14:06)
[2025-01-10 14:29] LABS: CATHL Activated Clotting Time > 400 SEC (74-125)
[2025-01-10] MEDS: NITROGLYCERIN 0.4MG SL TABLET 0.4 MG SL (14:52)
[2025-01-10] MEDS: NITROGLYCERIN IN 5 % DEXTROSE 250 ML 3 MG IV (15:09)
[2025-01-10] MEDS: ISOSORBIDE MONO 30MG TAB.ER.24H 30 MG PO (15:23)
[2025-01-10 16:58] LABS: POC Glucose,Bedside 261 (70-110)
--- NOTE | 2025-01-10 17:49 | PC.NURSE ---
patient has done well. bp has gone up and down. short of breath with ambulation or laying flat. able to get up to bsc with assist of one, family has been assisting. no signs of bleeding to cath site. chest pain noted but is slightly better since restarting nitro drio. heart rate lower in 50-60s. aware. zack working with multiple trips to bsc. rings out as needed. alert and oriented. crackles noted.
--- NOTE | 2025-01-10 18:02 | PC.NURSE ---
radial band removed at this time no signs of hematoma or bleeding
[2025-01-10] MEDS: ATORVASTATIN 40MG TABLET 40 MG PO (20:32)
[2025-01-10 21:03] LABS: POC Glucose,Bedside 210 (70-110)
[2025-01-10] MEDS: CEFTRIAXONE 1 GM 1 GM in 0.9 % SODIUM CHLORIDE 50 ML IV (23:53)
[2025-01-11] VITALS (14 sets, daily range): BP systolic 132–181; BP diastolic 48–116; PULSE 52–72; RESP 14–23; TEMP 36.3–36.8; O2SAT 88–99; BMI 44.6
[2025-01-11 06:24] LABS: Hematocrit 31.5 % (37.0-47.0); Hemoglobin 10.1 g/dL (12.2-16.2); Immature Granulocytes % 0.6 %; Mean Corpuscular HGB Conc 32.1 g/dL (31.8-35.4); Mean Corpuscular Hemoglobin 32.1 pg (27.0-31.2); Mean Corpuscular Volume 100.0 fl (81-99); Nucleated Red Blood Cells % 0 %; Platelet Count 184 K/mm3 (142-424); Red Blood Count 3.15 M/mm3 (4.20-5.40); Red Cell Distribution Width-SD 50.5 fL; White Blood Count 10.8 K/mm3 (4.8-10.8)
[2025-01-11] MEDS: humaLOG 100 UNITS/ML 10ML VIAL (SSI) SUBCUT (06:34)
[2025-01-11 06:36] LABS: POC Glucose,Bedside 224 (70-110)
[2025-01-11 07:03] LABS: Alanine Aminotransferase 25 U/L (12-78); Albumin Level 3.6 g/dl (3.5-5.0); Albumin/Globulin Ratio 1.4 (1.1-1.8); Alkaline Phosphatase 53 U/L (38-126); Anion Gap 9.9 mEq/L (5-15); Aspartate Amino Transferase 42 U/L (14-36); Blood Urea Nitrogen 48 mg/dl (7-17); Calcium 9.3 mg/dl (8.4-10.2); Carbon Dioxide 27 mmol/L (22.0-30.0); Chloride 105 mmol/L (98-107); Creatinine Clearance Estimated 24 mL/min (50-200); Creatinine,Serum 1.80 mg/dl (0.52-1.04); Estimated Glomerular Filt Rate 28 ml/min (>60); GFR (African American) 34 ML/MIN (>60); Globulin 2.5 g/dL (1.3-3.2); Glucose 185 mg/dl (74-100); Magnesium 2.0 mg/dl (1.6-2.3); Potassium 3.9 mmoL/L (3.5-5.1); Sodium 138 mmol/L (136-145); Total Protein,Serum 6.1 g/dl (6.3-8.2)
[2025-01-11 07:05] LABS: Bilirubin,Total < 0.1 mg/dl (0.2-1.3)
[2025-01-11] MEDS: INSULIN GLARGINE 100 UNITS/ML 3ML FLEXPEN 20 UNIT SUBCUT (08:21)
[2025-01-11] MEDS: ISOSORBIDE MONO 30MG TAB.ER.24H 30 MG PO (08:23)
[2025-01-11] MEDS: METOPROLOL SUCCINATE XL 50MG TABLET 50 MG PO (08:23)
[2025-01-11] MEDS: PRASUGREL 10MG TAB 10 MG PO (08:23)
[2025-01-11] MEDS: SPIRONOLACTONE 25MG TABLET 50 MG PO (08:23)
[2025-01-11] MEDS: DOXYCYCLINE HYCL 100 MG TABLET PO (08:24)
[2025-01-11] MEDS: ASPIRIN EC 81MG TABLET 81 MG PO (08:24)
[2025-01-11] MEDS: FUROSEMIDE 40 MG TABLET PO (08:24)
[2025-01-11 11:04] LABS: POC Glucose,Bedside 197 (70-110)
--- NOTE | 2025-01-11 11:09 | EXP.CARD.PN ---
Subjective Subjective Date: 01/11/25 Time: 08:00 Principal diagnosis: NSTEMI and volume overload Interval history: Patient reports she is feeling good this morning. She denies chest pain or shortness of breath. Bilateral lower base lung crackles are improving. Bilateral lower extremity edema is improving. Morning labs reviewed. Exam Data for Last 24 hours Vital signs and Labs for Last 24 Hours: Temp Pulse Resp BP Pulse Ox O2 Del Method O2 Flow Rate 98.0 F 57 L 16 151/116 H 88 L Room Air 2 01/11/25 08:00 01/11/25 10:03 01/11/25 10:03 01/11/25 10:03 01/11/25 10:03 01/11/25 10:03 01/10/25 21:00 FiO2 35 01/11/25 04:00 Laboratory Results - last 24 hr 01/10/25 11:04: D-Dimer 1.39 H 01/10/25 11:14: POC Glucose 241 H 01/10/25 13:19: Activated Clotting Time > 400 H* 01/10/25 16:45: POC Glucose 261 H 01/10/25 20:55: POC Glucose 210 H 01/11/25 04:55: WBC 10.8, RBC 3.15 L, Hgb 10.1 L, Hct 31.5 L, MCV 100.0 H, MCH 32.1 H, MCHC 32.1, RDW 13.9, Plt Count 184, MPV 12.5 H, Neut % (Auto) 68.2, Lymph % (Auto) 22.1, [place] % (Auto) 7.7, Eos % (Auto) 0.9, Baso % (Auto) 0.5, Neut # (Auto) 7.3, Lymph # (Auto) 2.4, [place] # (Auto) 0.8, Eos # (Auto) 0.1, Baso # (Auto) 0.1, Sodium 138, Potassium 3.9, Chloride 105, Carbon Dioxide 27, Anion Gap 9.9, BUN 48 H D, Creatinine 1.80 H D, Estimated Creat Clear 24, Estimated GFR 28 L, Est GFR ( Amer) 34 L D, Glucose 185 H D, Calcium 9.3, Magnesium 2.0, Total Bilirubin < 0.1 L, AST 42 H, ALT 25, Alkaline Phosphatase 53, Total Protein 6.1 L, Albumin 3.6, Globulin 2.5, Albumin/Globulin Ratio 1.4 01/11/25 06:28: POC Glucose 224 H 01/11/25 10:56: POC Glucose 197 H I & O for Last 24 hours: Intake & Output 01/08/25 01/09/25 01/10/25 01/11/25 23:59 23:59 23:59 23:59 Intake Total 86.550 / 206.550 573.150 / 623.150 428.5 / 428.5 Output Total 4950 / 4950 1760 / 1760 Balance 86.550 / 206.550 -4376.850 / -4326.850 -1331.5 / -1331.5 Weight 256 lb 9.889 oz 256 lb 9.889 oz 252 lb 3.341 oz Microbiology Reports for the Last 24 Hours: Microbiology 01/09/25 08:47 Sputum - Nasotracheal Suction Gram Stain - Final 01/09/25 08:47 Sputum - Nasotracheal Suction Sputum Culture - Preliminary Gram Negative Rods 01/09/25 23:09 Blood Blood Culture - Preliminary NO GROWTH AFTER 24 HOURS 01/09/25 23:09 Blood Blood Culture - Preliminary NO GROWTH AFTER 24 HOURS Constitutional Constitutional: no acute distress *Routine Respiratory Exam Respiratory: Present CTA bilaterally, crackles and symmetric chest movement Comments: Faint crackles noted to lung bases but improved since yesterday. *Routine Cardiovascular Exam Cardiovascular: Present RRR, Normal S1 and Normal S2 *Routine Abdominal Exam Abdominal: Present soft and normoactive bowel sounds; Absent tenderness *Routine Extremities Exam Extremities: Present edema, full ROM and normal capillary refill Comments: Improving lower extremity edema noted *Routine Skin Exam Skin: Present intact, dry and warm Detailed Neck Exam: Thyroids Thyroid: Absent bruit Progress Note: A&P Assessment and plan (1) CAD (coronary artery disease): Status: Acute (2) NSTEMI (non-ST elevated myocardial infarction): Status: Acute (3) Hypertensive emergency: Status: Acute (4) Acute hypoxemic respiratory failure: Status: Acute (5) Hypertension: Status: Chronic (6) Diabetes: Status: Chronic (7) Heart failure with preserved ejection fraction: Status: Acute Assessment and Plan Assessment and Plan for All Diagnoses:: CAD NSTEMI Initial EKG negative for STEMI Troponin 0.05 trending up to 0.45 Status post left heart catheterization yesterday: 2 XIOMARA to RCA with moderate persistent disease in the mid LAD. Elevated LVEDP. Continue DAPT with Effient and aspirin, beta-koko and statin. Continue Imdur 30 mg p.o. daily Acute HFpEF Acute hypoxic respiratory failure Chest x-ray on admission concerning for bilateral pulmonary edema Bilateral lower extremity edema and bilateral lung crackles are improving Echo 12/2024 shows a normal biventricular function. Repeat limited echo shows no change in EF. Official read is pending Continue Lasix 40 mg p.o. daily and Aldactone 50 mg p.o. daily. Add Jardiance Hypertension Improving Renal artery duplex shows extremely limited images of right kidney and less than 60% stenosis of the left renal artery Continue irbesartan, Metoprolol, Aldactone, Lasix and Jardiance. Hyperlipidemia LDL goal less than 55, LDL is 58. Continue statin Diabetes mellitus is present Will defer to primary service. That addition of Jardiance 10 mg p.o. daily. Consider addition of Ozempic at office follow-up. Acute kidney injury Creatinine 1.3 trending up to 1.8. Baseline is 1. Continue to monitor closely CV summary 01/11/2025: Patient has diuresed well and reports she is feeling good today. She denies chest pain or shortness of breath. Lung crackles and lower extremity edema are both improving. Patient is maintaining oxygen saturation on room air. Patient received 2 XIOMARA to RCA and has persistent moderate disease noted in her LAD with an elevated LVEDP. Recommend continue medications as outlined below. She is CV stable for discharge home please have patient follow-up in cardiology clinic in 1 week for reevaluation. Patient will need repeat labs next week for a recheck of renal function. Also consider addition of Ozempic at office follow-up for coronary disease and diabetes mellitus. Cardiac Meds: Aspirin 81 mg p.o. daily Effient 10 milligrams p.o. daily Atorvastatin 40 mg p.o. daily Irbesartan 75 mg p.o. daily Toprol 50 mg p.o. daily Lasix 40 mg p.o. daily Aldactone 50 mg p.o. daily Imdur 30 mg p.o. daily Jardiance 10 mg p.o. daily
--- NOTE | 2025-01-11 11:16 | P.DS_ITS ---
<Statement entered by Carmine Sung MD - 01/13/25 17:20> Agree with ARCHITECTURE MANAGER note as documented General Admission date:: 01/09/25 Discharge date: 01/11/25 HPI HPI HPI: Dayana Rice is a pleasant 64-year-old female with a medical history significant for CAD, hypertension, type 2 diabetes, former smoker who presents with progressive dyspnea on exertion over the past few weeks. Patient was wrapping up her workday and walking towards her car in the lot when she began experiencing shortness of breath. She then proceeded to the ED. She states over the past few months she has been experiencing dyspnea on exertion, and was recently evaluated by cardiology on 12/28/2024. During that visit, it was noted her blood pressure was uncontrolled and her amlodipine was increased to 10 mg twice daily, started metoprolol succinate 50 mg daily, aspirin 81 mg. Cardiology also ordered ECHO and CCTA. Upon my review, CCTA shows severe calcification and significant multivessel CAD. ECHO unremarkable. Patient denies chest pain, and has been adherent to her medications. She lives at home by herself. No recent lifestyle changes, or stressors. Upon arrival to the ED, her blood pressures were 200s over 100s and she was saturating 58% on room air and escalated from nonrebreather to BiPAP after CXR showed diffuse pulmonary edema. BNP 930 (falsely low in the setting of obesity), troponin 0.05, WBC 15.2, creatinine 1.3 (baseline 1.0). She was given Solu-Medrol 125 mg, magnesium, DuoNebs, hydralazine 20 mg, and started on nitro drip. On my evaluation, patient looks comfortable on BiPAP with appropriate saturations, with improvement in pressures with SBP in the 150s. I advised Lasix 80 mg to be given. Case discussed with ED provider and decision was made to admit patient for acute hypoxic respiratory failure secondary to flash pulmonary edema from hypertensive emergency and acute HFpEF exacerbation, NSTEMI, and possible community-acquired pneumonia. Hospital Course Hospital Course Hospital Course: Dayana Rice is a pleasant 64-year-old female with a medical history signi ficant for CAD, hypertension, type 2 diabetes, former smoker who presents with progressive dyspnea on exertion over the past few weeks. Patient was wrapping up her workday and walking towards her car in the lot when she began experiencing shortness of breath. She then proceeded to the ED. She states over the past few months she has been experiencing dyspnea on exertion, and was recently evaluated by cardiology on 12/28/2024. During that visit, it was noted her blood pressure was uncontrolled and her amlodipine was increased to 10 mg twice daily, started metoprolol succinate 50 mg daily, aspirin 81 mg. Cardiology also ordered ECHO and CCTA. CCTA shows severe calcification and significant multivessel CAD. ECHO unremarkable. Patient denies chest pain, and has been adherent to her medications. She lives at home by herself. No recent lifestyle changes, or stressors. Upon arrival to the ED, her blood pressures were 200s over 100s and she was saturating 58% on room air and escalated from nonrebreather to BiPAP after CXR showed diffuse pulmonary edema. BNP 930 (falsely low in the setting of obesity), troponin 0.05, WBC 15.2, creatinine 1.3 (baseline 1.0). She was given Solu-Medrol 125 mg, magnesium, DuoNebs, hydralazine 20 mg, and started on nitro drip. She was initially placed on BiPAP and had appropriate saturations, she has been weaned down to 2 L nasal cannula today. Blood pressures have still been elevated systolics in the 180s, nitro drip was turned off throughout the night but restarted this morning per cardiology due to elevated systolic pressures. Patient does deny chest pain. on my evaluation, patient looks comfortable on BiPAP with appropriate saturations, with improvement in pressures with SBP in the 150s. I advised Lasix 80 mg to be given. Patient remains in the ICU for close monitoring. #Acute hypoxic respiratory failure #Flash pulmonary edema #Hypertensive emergency #HFpEF exacerbation #NSTEMI type I #CAD ?Patient had LHC yesterday afternoon, received 2 XIOMARA to RCA, noted to have elevated LVEDP. Recommendations for medication assessment and changes at discharge. Cardiac meds started at discharge include: Aspirin 81 mg daily, Effient 10 mg daily, atorvastatin 40 mg daily, irbesartan 75 mg daily, metoprolol 50 mg daily, Lasix 40 mg daily, Aldactone 50 mg daily, Imdur 30 mg daily, and Jardiance 10 mg daily. ?Patient denies any chest pain type discharge. Blood pressure better controlled, 1 69?63 at discharge. Oxygen saturation 94% on room air. Patient has close outpatient follow-up with cardiology in the next week. ? Presented with progressive dyspnea on exertion, found to be in hypertensive emergency with flash pulmonary edema in the setting of NSTEMI and HFpEF exacerbation. ? Initial BP 200s over 100s with CXR showing diffuse pulmonary and peripheral edema, troponins uptrending from 0.05-0.45. ? In total patient diuresed approximately 7 L. Will discharge home on diuretics. ? ECHO 01/04/2025 LVEF 60% without wall motion abnormalities. Increased LV wall thickness, indeterminate diastolic function. Renal artery duplex nonactionable. ? CCTA 01/04/2025 shows severe calcification and significant multivessel CAD. Patient is a former smoker. ? A1c 8.1, TSH 4.57, total cholesterol 146, LDL 58.9. #Community-acquired pneumonia #Sepsis ?Initial white count on admission was 15.2, trended down to 10.8. Blood cultures show no growth after 24 hours. Patient discharged on oral antibiotics. ? Patient was weaned from oxygen and is on room air maintaining oxygen saturation above 92%. She denies shortness of breath, faint fine crackles noted in bases of lungs. Sputum culture shows gram-negative rods, sensitivity not resulted. Will continue to follow discharge patient home on cefdinir 300 mg twice daily total course of 5 days, and doxycycline 100 mg twice daily to complete a 7-day course #NATO ? Kidney function slightly bumped at BUN 48, creatinine 1.8. Discussed with patient to follow-up with PCP for follow-up BMP. Elevation likely in the setting of aggressive diuresis. #Type 2 diabetes ? Hemoglobin A1c July 2024 7.5%. Repeat 8.1% today. ? Patient discharged home on insulin glargine 50 units at bedtime, pioglitazone 30 mg daily. ? Stopped glyburide due to potential for hypoglycemia. Patient should follow-up with PCP for further management. Per cardiology consider starting Ozempic at follow-up. #Obstructive sleep apnea ? Continue home BiPAP nightly. #Macrocytic anemia ? Hemoglobin 10.1, MCV 101. B12 404, folate greater than 20. Total time spent on discharge 41 minutes in counseling, documentation, chart review, and direct care with patient. Exam Data for Last 24 hours Vital signs and Labs for Last 24 Hours: Temp Pulse Resp BP Pulse Ox O2 Del Method O2 Flow Rate 98.0 F 57 L 16 151/116 H 88 L Room Air 2 01/11/25 08:00 01/11/25 10:03 01/11/25 10:03 01/11/25 10:03 01/11/25 10:03 01/11/25 10:03 01/10/25 21:00 FiO2 35 01/11/25 04:00 Laboratory Results - last 24 hr 01/10/25 11:04: D-Dimer 1.39 H 01/10/25 11:14: POC Glucose 241 H 01/10/25 13:19: Activated Clotting Time > 400 H* 01/10/25 16:45: POC Glucose 261 H 01/10/25 20:55: POC Glucose 210 H 01/11/25 04:55: WBC 10.8, RBC 3.15 L, Hgb 10.1 L, Hct 31.5 L, MCV 100.0 H, MCH 32.1 H, MCHC 32.1, RDW 13.9, Plt Count 184, MPV 12.5 H, Neut % (Auto) 68.2, Lymph % (Auto) 22.1, [place] % (Auto) 7.7, Eos % (Auto) 0.9, Baso % (Auto) 0.5, Neut # (Auto) 7.3, Lymph # (Auto) 2.4, [place] # (Auto) 0.8, Eos # (Auto) 0.1, Baso # (Auto) 0.1, Sodium 138, Potassium 3.9, Chloride 105, Carbon Dioxide 27, Anion Gap 9.9, BUN 48 H D, Creatinine 1.80 H D, Estimated Creat Clear 24, Estimated GFR 28 L, Est GFR ( Amer) 34 L D, Glucose 185 H D, Calcium 9.3, Magnesium 2.0, Total Bilirubin < 0.1 L, AST 42 H, ALT 25, Alkaline Phosphatase 53, Total Protein 6.1 L, Albumin 3.6, Globulin 2.5, Albumin/Globulin Ratio 1.4 01/11/25 06:28: POC Glucose 224 H 01/11/25 10:56: POC Glucose 197 H I & O for Last 24 hours: Intake & Output 01/08/25 01/09/25 01/10/25 01/11/25 23:59 23:59 23:59 23:59 Intake Total 86.550 / 206.550 573.150 / 623.150 428.5 / 428.5 Output Total 4950 / 4950 1760 / 1760 Balance 86.550 / 206.550 -4376.850 / -4326.850 -1331.5 / -1331.5 Weight 116.4 kg 116.4 kg 114.4 kg Microbiology Reports for the Last 24 Hours: Microbiology 01/09/25 08:47 Sputum - Nasotracheal Suction Gram Stain - Final 01/09/25 08:47 Sputum - Nasotracheal Suction Sputum Culture - Preliminary Gram Negative Rods 01/09/25 23:09 Blood Blood Culture - Preliminary NO GROWTH AFTER 24 HOURS 01/09/25 23:09 Blood Blood Culture - Preliminary NO GROWTH AFTER 24 HOURS Constitutional Constitutional: no acute distress and cooperative *Routine HEENT Exam Head: Present normocephalic Eye: Present EOMI ENT: Present mucous membranes moist *Routine Neck Exam Neck: Present supple; Absent JVD *Routine Respiratory Exam Respiratory: Present CTA bilaterally, crackles, normal respiratory effort, able to speak in complete sentences and symmetric chest movement Comments: Faint crackles noted to lung bases but improved since yesterday. *Routine Cardiovascular Exam Cardiovascular: Present RRR, Normal S1 and Normal S2 *Routine Abdominal Exam Abdominal: Present soft and normoactive bowel sounds; Absent tenderness or distended *Routine Extremities Exam Extremities: Present edema, full ROM and normal capillary refill Comments: Improving lower extremity edema noted *Routine Skin Exam Skin: Present intact, dry and warm; Absent rash *Routine Neurological Exam Neurological: Present alert, oriented X3, vision grossly intact and hearing grossly intact Detailed Neck Exam: Thyroids Thyroid: Absent bruit Results Data Completed and Pending Labs on day of discharge: Labs from last 24 hours 01/11/25 01/11/25 01/11/25 10:56 06:28 04:55 WBC 10.8 RBC 3.15 L Hgb 10.1 L Hct 31.5 L MCV 100.0 H MCH 32.1 H MCHC 32.1 RDW 13.9 Plt Count 184 MPV 12.5 H Neut % (Auto) 68.2 Lymph % (Auto) 22.1 [place] % (Auto) 7.7 Eos % (Auto) 0.9 Baso % (Auto) 0.5 Neut # (Auto) 7.3 Lymph # (Auto) 2.4 [place] # (Auto) 0.8 Eos # (Auto) 0.1 Baso # (Auto) 0.1 Activated Clotting Time D-Dimer Sodium 138 Potassium 3.9 Chloride 105 Carbon Dioxide 27 Anion Gap 9.9 BUN 48 H D Creatinine 1.80 H D Estimated Creat Clear 24 Estimated GFR 28 L Est GFR ( Amer) 34 L D Glucose 185 H D POC Glucose 197 H 224 H Calcium 9.3 Magnesium 2.0 Total Bilirubin < 0.1 L AST 42 H ALT 25 Alkaline Phosphatase 53 Total Protein 6.1 L Albumin 3.6 Globulin 2.5 Albumin/Globulin Ratio 1.4 01/10/25 01/10/25 01/10/25 20:55 16:45 13:19 WBC RBC Hgb Hct MCV MCH MCHC RDW Plt Count MPV Neut % (Auto) Lymph % (Auto) [place] % (Auto) Eos % (Auto) Baso % (Auto) Neut # (Auto) Lymph # (Auto) [place] # (Auto) Eos # (Auto) Baso # (Auto) Activated Clotting Time > 400 H* D-Dimer Sodium Potassium Chloride Carbon Dioxide Anion Gap BUN Creatinine Estimated Creat Clear Estimated GFR Est GFR ( Amer) Glucose POC Glucose 210 H 261 H Calcium Magnesium Total Bilirubin AST ALT Alkaline Phosphatase Total Protein Albumin Globulin Albumin/Globulin Ratio 01/10/25 01/10/25 11:14 11:04 WBC RBC Hgb Hct MCV MCH MCHC RDW Plt Count MPV Neut % (Auto) Lymph % (Auto) [place] % (Auto) Eos % (Auto) Baso % (Auto) Neut # (Auto) Lymph # (Auto) [place] # (Auto) Eos # (Auto) Baso # (Auto) Activated Clotting Time D-Dimer 1.39 H Sodium Potassium Chloride Carbon Dioxide Anion Gap BUN Creatinine Estimated Creat Clear Estimated GFR Est GFR ( Amer) Glucose POC Glucose 241 H Calcium Magnesium Total Bilirubin AST ALT Alkaline Phosphatase Total Protein Albumin Globulin Albumin/Globulin Ratio Preliminary micro results at discharge 01/09/25 08:47 Sputum Culture - Preliminary Sputum - Nasotracheal Suction Gram Negative Rods 01/09/25 23:09 Blood Culture - Preliminary Blood NO GROWTH AFTER 24 HOURS 01/09/25 23:09 Blood Culture - Preliminary Blood NO GROWTH AFTER 24 HOURS DS: Diagnosis Discharge Diagnosis (1) CAD (coronary artery disease): Status: Acute Code(s): I25.10 - Atherosclerotic heart disease of [place] coronary artery without angina pectoris (2) NSTEMI (non-ST elevated myocardial infarction): Status: Acute Code(s): I21.4 - Non-ST elevation (NSTEMI) myocardial infarction (3) Hypertensive emergency: Status: Acute Code(s): I16.1 - Hypertensive emergency (4) Acute hypoxemic respiratory failure: Status: Acute Code(s): J96.01 - Acute respiratory failure with hypoxia (5) Hypertension: Status: Chronic Code(s): I10 - Essential (primary) hypertension Qualifiers: Hypertension type: unspecified Qualified Code(s): I10 - Essential (primary) hypertension (6) Diabetes: Status: Chronic Code(s): E11.9 - Type 2 diabetes mellitus without complications Qualifiers: Diabetes mellitus complication status: without complication Diabetes mellitus predatory animal exterminator insulin use: with predatory animal exterminator use Diabetes mellitus type: type 2 Qualified Code(s): E11.9 - Type 2 diabetes mellitus without complications; Z79.4 - rn long term care (current) use of insulin (7) Heart failure with preserved ejection fraction: Status: Acute Code(s): I50.30 - Unspecified diastolic (congestive) heart failure Meds Home Medications and Allergies Home Medications ?Medication ?Instructions ?Recorded ?Confirmed ?Type red yeast rice 600 mg capsule 600 mg PO DAILY 08/17/19 01/10/25 History glucosamine HCl 500 mg tablet 500 mg PO BID 03/17/22 0 01/10/25 History multivitamin with minerals 1 tab PO DAILY 03/17/22 History (Hair,Skin and Nails tablet) omega 7-yky-vtc-fish oil 1,000 mg 1 cap PO DAILY 03/1701/10/25 History (120 mg-180 mg) capsule (Fish Oil) pen needle, diabetic 31 gauge x #100 ea 06/01/2401/10 Rx 5/16 (BD Ultra-Fine Short Pen Needle) metoprolol succinate 50 mg 50 mg PO DAILY #30 tabs 01/10/25 Rx tablet,extended release 24 hr (Toprol XL) insulin glargine 100 unit/mL (3 50 unit (0.5 mL) SQ HS #3 mL 01/10/25 01/10/25 Rx mL) subcutaneous pen (Mat[place] Naveed U-100 Insulin) pioglitazone 30 mg tablet 30 mg PO DAILY 01/10/25 07/3 0/ History aspirin 81 mg tablet,delayed 81 mg PO DAILY 30 days #3 0 tabs 01/11/25 Rx release (Adult Low Dose Aspirin) atorvastatin 40 mg tablet 40 mg PO HS 30 days #30 tabs 01/11/25 Rx cefdinir 300 mg capsule 300 mg PO BID #8 caps Rx doxycycline hyclate 100 mg tablet 100 mg PO BID 5 days #10 tabs 01/11/25 Rx empagliflozin 10 mg tablet 10 mg PO DAILY 30 days #30 tabs 01/11/25 Rx (Jardiance) furosemide 40 mg tablet 40 mg PO DAILY 30 days #30 t abs 01/11/25 Rx irbesartan 75 mg tablet 75 mg PO HS 30 days #30 tabs 01/11/25 Rx isosorbide mononitrate 30 mg 30 mg PO DAILY 30 days #3 0 tabs 01/11/25 Rx tablet,extended release 24 hr prasugrel HCl 10 mg tablet 10 mg PO DAILY #30 tabs Rx spironolactone 25 mg tablet 50 mg (2 x 25 mg) PO DAILY 30 days 01/11/25 Rx #60 tabs New Prescriptions to Start Prescriptions: aspirin [Adult Low Dose Aspirin] Birgit Estrada atorvastatin Birgit Estrada cefdinir Birgit Estrada doxycycline hyclate Birgit Estrada empagliflozin [Jardiance] Birgit Estrada furosemide [place],Birgit irbesartan [place] isosorbide mononitrate [place] prasugrel HCl [place] spironolactone Birgit Estrada Allergies Allergy/AdvReac Type Severity Reaction Status Date / Time No Known Allergies Allergy Verified 01/04/25 12:22 Discharge Plan Disposition Patient Disposition: Home, Self-Care Condition: Fair Discharge Order Discharge Orders: Discharge Order (Routine); Ordered 01/11/25 Ordered By: Birgit Estrada Follow up Plan Follow up with: Mehreen Valentine APRN [Nurse Practitioner, Cardiology] - 01/17/25 10:15 am Referral Note: BEAU Sanders Kenneth, MD [Primary Care Provider, Internal Medicine] - 01/18/25 11:00 am Edelmira Newman MD [Physician, Pulmonology] - 01/29/25 1:00 pm Prescriptions/Medication Reconciliation: New furosemide 40 mg Tablet 40 mg PO DAILY 30 Days Qty: 30 0RF atorvastatin 40 mg Tablet 40 mg PO HS 30 Days Qty: 30 0RF isosorbide mononitrate 30 mg Tablet Extended Release 24 Hr 30 mg PO DAILY 30 Days Qty: 30 0RF aspirin [Adult Low Dose Aspirin] 81 mg tablet,delayed release (DR/EC) 81 mg PO DAILY 30 Days Qty: 30 0RF irbesartan 75 mg Tablet 75 mg PO HS 30 Days Qty: 30 0RF doxycycline hyclate 100 mg Tablet 100 mg PO BID 5 Days Qty: 10 0RF prasugrel HCl 10 mg Tablet 10 mg PO DAILY Qty: 30 0RF Jardiance 10 mg Tablet 10 mg PO DAILY 30 Days Qty: 30 0RF spironolactone 25 mg Tablet 50 mg PO DAILY 30 Days Qty: 60 0RF cefdinir 300 mg capsule 300 mg PO BID Qty: 8 0RF Continued omega 7-qzm-iwp-fish oil [Fish Oil] 1,000 mg (120 mg-180 mg) capsule 1 cap PO DAILY glucosamine HCl 500 mg tablet 500 mg PO BID Rx Instructions: administer with meals Hair,Skin and Nails Tablet 1 tab PO DAILY red yeast rice 600 mg capsule 600 mg PO DAILY Rx Instructions: give with meal/snack metoprolol succinate [Toprol XL] 50 mg tablet extended release 24 hr 50 mg PO DAILY Qty: 30 2RF (DME) pen needle, diabetic [BD Ultra-Fine Short Pen Needle] 31 gauge x 5/16 needle See Rx Instructions .ROUTE .COMPLEX Qty: 100 2RF Dose Instruction: USE DIRECTED WITH INSULIN Rx Instructions: USE DIRECTED WITH INSULIN insulin glargine [[place] Lucio U-100 Insulin] 100 unit/mL (3 mL) insulin pen 50 unit SQ HS Qty: 3 3RF pioglitazone 30 mg tablet 30 mg PO DAILY Patient Comments: TAKE ONE TABLET BY MOUTH ONCE A DAY Discontinued amlodipine 10 mg tablet 10 mg PO BID Qty: 60 3RF fenofibrate nanocrystallized 145 mg tablet See Rx Instructions .ROUTE .COMPLEX Qty: 30 3RF Dose Instruction: TAKE ONE TABLET BY MOUTH ONCE A DAY Rx Instructions: TAKE ONE TABLET BY MOUTH ONCE A DAY glyburide 5 mg tablet 10 mg PO BID candesartan-hydrochlorothiazid 32-12.5 mg tablet 1 tab PO DAILY Patient Comments: TAKE ONE TABLET BY MOUTH ONCE A DAY atorvastatin 20 mg tablet 20 mg PO HS Patient Comments: TAKE ONE TABLET BY MOUTH EVERY EVENING FOR CHOLESTEROL GENERIC FOR LIPITOR Other Ambulatory Orders: Basic Metabolic Panel (Routine) Timeframe: 20250117 Facility: [facility] - Location: Laboratory Ordered By: Bryn Romero Complete Blood Count Auto Diff (Routine) Timeframe: 20250117 Facility: [facility] - Location: Laboratory Ordered By: Bryn Romero Problem Reconciliation Problems Reviewed?: Yes Patient Discharge Instructions ACTIVITY: Continue current activity and Ambulate as tolerated DIET: cardiac Patient Instructions: DI for Cardiac Catheterization, DI for Coronary Stenting, DI for Surgical Site Infection, Stop Light Heart Failure Print Language: Kittitian Providers Primary Care Provider: Ayan Moran Admit Provider: Gautam Vallejo Attending Provider: Gautam Vallejo
[2025-01-11] MEDS: EMPAGLIFLOZIN 10MG TABLET 10 MG PO (11:26)
--- NOTE | 2025-01-12 10:28 | SW/DCPLANNER ---
Spoke with patient on the phone. Patient stated that she is doing good. Patient stated that she is sitting there resting. Patient stated that she is aware of her upcoming appointments. Patient stated that she was able to get her medicine brought to her room before she was discharged. Patient stated that she has no concerns or questions at this time. Jose Alberto Ortiz
== END 2025-01-11 12:41 | disposition home or self-care (01) | DRG 321 ==
LOC: ER 20:06 → ICU 21:37
PROVIDERS: Internal Medicine; Internal Medicine Pulmonary Disease; Physician Assistant; Admitting Provider Student in an Organized Health Care Education/Training Program; Emergency Provider Student in an Organized Health Care Education/Training Program; PCP Family Medicine; Visit Provider Student in an Organized Health Care Education/Training Program
PROC: 4A023N7 Measurement of Cardiac Sampling and Pressure, Left Heart, Percutaneous Approach (ICD-10-PCS; CPT 93452; principal; 2025-01-10 13:15)
DX: I21.4 Non-ST elevation (NSTEMI) myocardial infarction (principal); A41.9 Sepsis, unspecified organism; I50.33 Acute on chronic diastolic (congestive) heart failure; J96.01 Acute respiratory failure with hypoxia; J15.0 Pneumonia due to Klebsiella pneumoniae; I16.1 Hypertensive emergency; N17.9 Acute kidney failure, unspecified; E66.2 Morbid (severe) obesity with alveolar hypoventilation; Z68.41 Body mass index [BMI] 40.0-44.9, adult; I11.0 Hypertensive heart disease with heart failure; I25.10 Atherosclerotic heart disease of native coronary artery without angina pectoris; E11.9 Type 2 diabetes mellitus without complications; E78.5 Hyperlipidemia, unspecified; D53.9 Nutritional anemia, unspecified; F17.210 Nicotine dependence, cigarettes, uncomplicated; Z66 Do not resuscitate; Z79.4 Long term (current) use of insulin; Z99.89 Dependence on other enabling machines and devices; Z79.84 Long term (current) use of oral hypoglycemic drugs; Z79.899 Other long term (current) drug therapy
CPT/HCPCS: 36415; 71045; 80053; 80061; 82607; 82746; 82803; 82962; 83036; 83605; 83735; 83880; 84145; 84443; 84484; 85007; 85025; 85347; 85378; 85610; 86803; 87040; 87070; 87077; 87186; 87205; 87389; 87633; 93005; 93308; 93976; 94660; 99152; 99153; C1725; C1769; C1874; J0360; J0696; J1200; J1450; J1644; J1650; J1920; J1938; J2003; J2250; J2919; J3010; J3475; J7040; J7050

== ENCOUNTER 2025-01-17 09:34 | Outpatient (CLI) | payer OTHER, MEDICARE, SELFPAY ==
--- OUTSIDE RECORDS SUMMARY | 2025-01-17 09:37 | XMS_ITS | Clinical Summary ---
Author Organization [facility] ystem Address [address] [place] [address] Care Team Providers Care Office Service Coordinator Name Role Phone Saundra Muir Monserrat LINO [...] season) 2024 INFLUENZA VACCINE 03/14/2025 Care Teams Office Service Coordinator Relationship Specialty Start Date End Date Saundra Miur, JAVA TECH LEAD [address] [place] [address] PCP - General Family Medicine 06/17/22
[2025-01-17 10:23] LABS: Hematocrit 36.5 % (37.0-47.0); Hemoglobin 11.3 g/dL (12.2-16.2); Immature Granulocytes % 1.6 %; Mean Corpuscular HGB Conc 31.0 g/dL (31.8-35.4); Mean Corpuscular Hemoglobin 31.1 pg (27.0-31.2); Mean Corpuscular Volume 100.6 fl (81-99); Nucleated Red Blood Cells % 0 %; Platelet Count 186 K/mm3 (142-424); Red Blood Count 3.63 M/mm3 (4.20-5.40); Red Cell Distribution Width-SD 49.6 fL; White Blood Count 8.4 K/mm3 (4.8-10.8)
[2025-01-17 10:46] LABS: Anion Gap 11.3 mEq/L (5-15); Blood Urea Nitrogen 36 mg/dl (7-17); Calcium 9.2 mg/dl (8.4-10.2); Carbon Dioxide 26 mmol/L (22.0-30.0); Chloride 106 mmol/L (98-107); Creatinine,Serum 1.30 mg/dl (0.52-1.04); Estimated Glomerular Filt Rate 41 ml/min (>60); GFR (African American) 50 ML/MIN (>60); Glucose 230 mg/dl (74-100); Potassium 4.3 mmoL/L (3.5-5.1); Sodium 139 mmol/L (136-145)
== END 2025-01-17 23:59 | disposition home or self-care (01) ==
LOC: LAB 09:35
PROVIDERS: PCP Family Medicine; Visit Provider Internal Medicine
DX: I25.10 Atherosclerotic heart disease of native coronary artery without angina pectoris (principal)
CPT/HCPCS: 36415; 80048; 85025

== ENCOUNTER 2025-01-23 06:57 | Outpatient (CLI) | payer OTHER, MEDICARE, SELFPAY ==
--- OUTSIDE RECORDS SUMMARY | 2025-01-23 06:59 | XMS_ITS | Clinical Summary ---
Author Organization [facility]stem Address [address] [place] [address] Care Team Providers Care Maintenance Worker House Trailer Name Role Phone Saundra Muir Monserrat LINO [...] season) 2024 INFLUENZA VACCINE 03/14/2025 Care Teams Maintenance Worker House Trailer Relationship Specialty Start Date End Date Saundra Muir, EVP MANAGING DIRECTOR [address] [place] [address] PCP - General Family Medicine 06/17/22
--- NOTE | 2025-01-23 07:15 | CT_ITS ---
FINAL REPORT TECHNIQUE: Thin section axial images were obtained through the abdomen after contrast injection per CT angiogram protocol. Multiplanar reconstruction images were obtained from the axial data. This exam was performed with techniques to keep radiation dose as low as reasonably achievable. This includes automated exposure control, adjustment of the MA and KVP, and iterative reconstruction technique. CLINICAL HISTORY: renals COMPARISON: None FINDINGS: CTA: No abdominal aortic aneurysm or aortic dissection. There are dense calcifications involving the origins of the celiac axis and superior mesenteric artery. 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 The more distal branches are patent. The inferior mesenteric artery is patent. Bilateral renal artery stenosis is present. The right renal artery may be possibly occluded just distal to the origin. The left renal artery displays moderate stenosis. The common iliac arteries and visualized portions of the internal and external iliac arteries are patent. No significant stenosis. NONVASCULAR: The gallbladder is present. The spleen, pancreas, and liver are unremarkable. The adrenal glands are normal in appearance. The right kidney is atrophic. The left kidney demonstrates no mass or hydronephrosis. The GI tract is without acute abnormality. No lymphadenopathy or free fluid. No acute osseous abnormality. IMPRESSION: No evidence of abdominal aortic aneurysm or dissection. There are moderate to severe stenosis of the celiac origin and moderate stenosis of the superior mesenteric artery origin. More distal branches are patent. Bilateral renal artery stenoses are identified. The right renal artery may be possibly occluded just distal to the origin, and the right kidney is atrophic. There is moderate stenosis of the left renal artery. Reviewed, Interpreted and Dictated by Lashon Serna MD Transcribed by Vernell Morales Authenticated and [facility]
[2025-01-23] MEDS: SODIUM CHLORIDE 0.9% 10ML SYR (RAD ONLY) 10 ML IV (07:22)
[2025-01-23] MEDS: IOPAMIDOL-370 (76%);100ML BOTTLE 80 ML IV (07:22)
[2025-01-23] MEDS: 0.9 % SODIUM CHLORIDE 50 ML VIAL IV (07:22)
== END 2025-01-23 23:59 | disposition home or self-care (01) ==
LOC: RAD 06:58
PROVIDERS: PCP Family Medicine; Visit Provider Physician Assistant
DX: I70.1 Atherosclerosis of renal artery (principal); I77.1 Stricture of artery; K55.1 Chronic vascular disorders of intestine; I25.10 Atherosclerotic heart disease of native coronary artery without angina pectoris; I10 Essential (primary) hypertension
CPT/HCPCS: 74175; Q9967

== ENCOUNTER 2025-01-26 07:34 | Day surgery (SDC) | payer OTHER, MEDICARE, SELFPAY ==
[2025-01-26] VITALS (11 sets, daily range): BP systolic 172–197; BP diastolic 66–78; PULSE 56–69; RESP 16–20; TEMP 36.6; O2SAT 91–98; BMI 44.8
--- NOTE | 2025-01-26 07:02 | IR_ITS ---
APPROVED REPORT Patient Location: Outpatient Property Management Intern: JOÃO Gutierrez RT (R) PROCEDURES Right radial arterial access Selective left renal angiogram Selective engagement of the inferior mesenteric artery with angiography Selective engagement of the superior mesenteric artery with angiography Indirect angiography of the celiac artery INDICATION Mesenteric atherosclerosis, Left renal artery stenosis, Abnormal CTA Informed consent was obtained prior to the procedure. COMPLICATIONS NONE Estimated Blood Loss: LESS THAN 10 ML TECHNIQUE 1% lidocaine used to anesthetize the right anterior aspect of the right wrist. The right radial artery was accessed via the central technique and an arterial cocktail using 5000U heparin, 2.5 mg verapamil, 1mg lidocaine and 800mcg nitroglycerin into the right radial sheath intra-arterially. A JL 3 catheter was used to perform left renal selective angiography as well as selective engagement of the inferior and superior mesenteric arteries. At the end the procedure the apparatus was removed the sheath was removed and hemostasis was achieved and TR banding patient was transferred to the postop boarding in stable condition ANGIOGRAPHIC RESULTS Left renal artery is singular widely patent with mild ostial 10% calcified stenosis Superior mesenteric artery is widely patent with ostial 40% stenosis Inferior mesenteric artery is widely patent Celiac artery was indirectly visualized and is patent with calcified ostial segment IMPRESSION Mild left renal artery stenosis Mild to moderate superior mesenteric artery stenosis Patent inferior mesenteric artery Calcified ostial celiac artery which is widely patent PLAN 1. Medical management 2. Better blood pressure control Electronically signed by : Bryn Romreo MD 01/26/2025 10:11:01
[2025-01-26] MEDS: PRASUGREL 10MG TAB 10 MG PO (08:11)
[2025-01-26 08:24] LABS: Hematocrit 36.3 % (37.0-47.0); Hemoglobin 11.5 g/dL (12.2-16.2); Immature Granulocytes % 0.7 %; Mean Corpuscular HGB Conc 31.7 g/dL (31.8-35.4); Mean Corpuscular Hemoglobin 31.6 pg (27.0-31.2); Mean Corpuscular Volume 99.7 fl (81-99); Nucleated Red Blood Cells % 0 %; Platelet Count 138 K/mm3 (142-424); Red Blood Count 3.64 M/mm3 (4.20-5.40); Red Cell Distribution Width-SD 48.7 fL; White Blood Count 8.1 K/mm3 (4.8-10.8)
[2025-01-26] MEDS: HEPARIN 1,000 UNITS/ML 10ML VIAL (CATH LAB) 5000 UNIT IV (08:33)
[2025-01-26] MEDS: LIDOCAINE 1% 10ML MDV 10 ML IJ (08:33)
[2025-01-26] MEDS: NITROGLYCERIN 800MCG/8ML SYR (CATH LAB) 800 MCG IA (08:34)
[2025-01-26] MEDS: VERAPAMIL 2.5MG/ML 2ML VIAL 2.5 MG IV (08:34)
[2025-01-26 08:35] LABS: Anion Gap 12.9 mEq/L (5-15); Blood Urea Nitrogen 26 mg/dl (7-17); Calcium 10.1 mg/dl (8.4-10.2); Carbon Dioxide 21 mmol/L (22.0-30.0); Chloride 111 mmol/L (98-107); Creatinine Clearance Estimated 36 mL/min (50-200); Creatinine,Serum 1.20 mg/dl (0.52-1.04); Estimated Glomerular Filt Rate 45 ml/min (>60); GFR (African American) 54 ML/MIN (>60); Glucose 178 mg/dl (74-100); Potassium 4.9 mmoL/L (3.5-5.1); Sodium 140 mmol/L (136-145)
[2025-01-26] MEDS: HEPARIN 1,000 UNITS/500ML NS (CATH LAB) 3000 UNIT IV (08:35)
[2025-01-26] MEDS: 0.9 % SODIUM CHLORIDE 500 ML 25 ML IV (08:35)
[2025-01-26] MEDS: FENTANYL 100MCG/2ML VIAL 50 MCG IV (09:11)
[2025-01-26] MEDS: MIDAZOLAM HCL 1MG/ML 5ML VIAL 1 MG IV (09:11)
[2025-01-26] MEDS: IOPAMIDOL-370 (76%);100ML BOTTLE 40 ML IV (14:25)
== END 2025-01-26 12:17 | disposition home or self-care (01) ==
PROVIDERS: PCP Family Medicine; Visit Provider Internal Medicine
DX: I70.1 Atherosclerosis of renal artery (principal); K55.1 Chronic vascular disorders of intestine; I25.10 Atherosclerotic heart disease of native coronary artery without angina pectoris; I21.4 Non-ST elevation (NSTEMI) myocardial infarction; R94.31 Abnormal electrocardiogram [ECG] [EKG]; E11.9 Type 2 diabetes mellitus without complications; G47.33 Obstructive sleep apnea (adult) (pediatric); E66.01 Morbid (severe) obesity due to excess calories; Z68.41 Body mass index [BMI] 40.0-44.9, adult; I10 Essential (primary) hypertension; G44.41 Drug-induced headache, not elsewhere classified, intractable; Z87.891 Personal history of nicotine dependence; Z79.82 Long term (current) use of aspirin; Z79.4 Long term (current) use of insulin; Z79.899 Other long term (current) drug therapy; Z79.84 Long term (current) use of oral hypoglycemic drugs; Z79.02 Long term (current) use of antithrombotics/antiplatelets; Z95.5 Presence of coronary angioplasty implant and graft; Z82.49 Family history of ischemic heart disease and other diseases of the circulatory system
CPT/HCPCS: 36245; 80048; 85025; 99152; C1725; C1760; C1769; J1200; J1644; J2003; J3010; J7040; Q9967

== ENCOUNTER 2025-02-06 07:51 | Outpatient (RCR) | payer OTHER, MEDICARE, SELFPAY | END 2025-02-08 08:00 | disposition home or self-care (01) | LOC: CR 07:51 | PROVIDERS: Visit Provider Physician Assistant | DX: I25.10 Atherosclerotic heart disease of native coronary artery without angina pectoris (principal); I10 Essential (primary) hypertension; I70.1 Atherosclerosis of renal artery | CPT/HCPCS: 93798 ==

== ENCOUNTER 2025-03-01 07:38 | Outpatient (CLI) | payer OTHER, MEDICARE, SELFPAY ==
--- OUTSIDE RECORDS SUMMARY | 2025-03-01 07:40 | XMS_ITS | Clinical Summary ---
Author Organization [facility] ystem Address [address] [place] [address] Care Team Providers Care Drier Feeder Name Role Phone Saundra Muir Monserrat LINO [...] SCREENING 02/11/2022 COVID-19 Vaccine (1 - season) 2025 INFLUENZA VACCINE 03/14/2025 Care Teams Drier Feeder Relationship Specialty Start Date End Date Saundra Muir, RESEARCH METHODS INSTRUCTOR [address] [place] [address] PCP - General Family Medicine 06/17/22
[2025-03-01] MEDS: ALBUTEROL 0.083% 2.5 MG/3 ML NEB IH (08:46)
== END 2025-03-01 23:59 | disposition home or self-care (01) ==
LOC: RT 07:39
PROVIDERS: PCP Family Medicine; Visit Provider Internal Medicine Pulmonary Disease
DX: R94.2 Abnormal results of pulmonary function studies (principal); R06.02 Shortness of breath; R06.09 Other forms of dyspnea
CPT/HCPCS: 94060; 94618; 94726; 94729

== ENCOUNTER 2025-03-09 12:55 | Outpatient (CLI) | payer OTHER, MEDICARE, SELFPAY ==
--- OUTSIDE RECORDS SUMMARY | 2025-03-09 13:01 | XMS_ITS | Clinical Summary ---
Author Organization [facility] ystem Address [address] [place] [address] Care Team Providers Care Childcare Center Director Name Role Phone Saundra Muir Monserrat [...] ANNUAL PHYSICAL 02/11/2022 HEPATITIS C SCREENING 02/11/2022 INFLUENZA VACCINE 01/12/2025 COVID-19 Vaccine ( - season) 2025 Care Teams Childcare Center Director Relationship Specialty Start Date End Date Saundra Muir, PAPER TESTING SUPERVISOR [address] [place] [address] PCP - General Family Medicine 06/17/22
== END 2025-03-09 23:59 | disposition home or self-care (01) ==
LOC: LAB 12:56
PROVIDERS: PCP Family Medicine; Visit Provider Physician Assistant
DX: I10 Essential (primary) hypertension (principal); I25.10 Atherosclerotic heart disease of native coronary artery without angina pectoris; I70.1 Atherosclerosis of renal artery
CPT/HCPCS: 82384; 84585

== ENCOUNTER 2025-04-11 10:38 | Outpatient (CLI) | payer OTHER, MEDICARE, SELFPAY ==
--- OUTSIDE RECORDS SUMMARY | 2025-04-11 10:48 | XMS_ITS ---
Laboratory report Created on: March 17, 2025 ILIA DUQUE : 1960 Sex: Female Author Organization Unknown PROBLEMS Problems List Code Description RESULTS Laboratory Orders Date Order Code Test 2025-03-09 [id number] CATECHOLAMINE+VM A, 24-HR URINE Laboratory Results Date LOINC Test Value Unit Reference Range Interpre tation 2025-03-09 9624-8 VMA, URINE 1.5 MG/L UNDEFINED 2025-03-09 3122-9 VMA, URINE, 24HR 3.7 MG/24 HR 0.0-7.5 2025-03-09 10097-8 EPINEPHRINE, URINE <3 UG/L UNDEFINED 2025-03-09 2232-7 EPINEPHRINE, U, 24HR <7 UG/24 HR 0-20 2025-03-09 2667-4 NOREPINEPHRINE, UR 23 UG/L UNDEFINED 2025-03-09 2668-2 NOREPINEPHRINE,U,24H 56 UG/24 HR 0-135 2025-03-09 2217-8 DOPAMINE, URINE 59 UG/L UNDEFINED 2025-03-09 2218-6 DOPAMINE, UR, 24HR 145 UG/24 HR 0-510
--- OUTSIDE RECORDS SUMMARY | 2025-04-11 10:48 | XMS_ITS | Clinical Summary ---
Author Organization [facility] ystem Address [address] [place] [address] Care Team Providers Care Riprap Worker Name Role Phone Saundra Muir Monserrat LINO Primary Care Provider [phone] Medications glyburide (DIAbeta) 5 MG tablet Take [...] Vaccine ( - season) 2025 Care Teams Riprap Worker Relationship Specialty Start Date End Date Saundra Muir, RISK TECH [address] [place] [address] PCP - General Family Medicine 06/17/22
--- NOTE | 2025-04-11 11:00 | MM_ITS ---
PROCEDURE INFORMATION: Exam: MG Bilateral Screening 3D Mammography Exam date and time: 04/11/2025 10:51 AM Age: 65 years old Clinical indication: Screening. No family history of breast cancer. TECHNIQUE: Imaging protocol: Bilateral Screening tomosynthesis and 2D mammography including computer-aided detection (CAD) when performed. COMPARISON: 1. MG MM DIG SCREENING MAMM BI W/CAD 04/06/2024 9:23 AM 2. MG MM DIG SCREENING MAMM BI W/CAD 04/08/2023 7:56 AM 3. MG MM DIG SCREENING MAMM BI W/CAD 04/02/2022 7:53 AM FINDINGS: MAMMOGRAPHY: Breast composition: There are scattered areas of fibroglandular density. Mass: None. Architectural distortion: None. Calcifications: No suspicious calcifications. Asymmetric density: None. Skin thickening: None. Axillary adenopathy: None. IMPRESSION: No mammographic evidence of malignancy. Annual screening is recommended unless otherwise clinically indicated. ASSESSMENT: BI-RADS Category 1: Negative.
== END 2025-04-11 23:59 | disposition home or self-care (01) ==
LOC: RAD 10:40
PROVIDERS: PCP Family Medicine; Visit Provider Family Medicine
DX: Z12.31 Encounter for screening mammogram for malignant neoplasm of breast (principal); R92.323 Mammographic fibroglandular density, bilateral breasts
CPT/HCPCS: 77063; 77067

== ENCOUNTER 2025-04-12 11:09 | Outpatient (CLI) | payer OTHER, MEDICARE, SELFPAY ==
[2025-04-12 11:34] LABS: Hematocrit 35.6 % (37.0-47.0); Hemoglobin 11.2 g/dL (12.2-16.2); Immature Granulocytes % 0.9 %; Mean Corpuscular HGB Conc 31.5 g/dL (31.8-35.4); Mean Corpuscular Hemoglobin 31.4 pg (27.0-31.2); Mean Corpuscular Volume 99.7 fl (81-99); Nucleated Red Blood Cells % 0 %; Platelet Count 107 K/mm3 (142-424); Red Blood Count 3.57 M/mm3 (4.20-5.40); Red Cell Distribution Width-SD 47.0 fL; White Blood Count 6.4 K/mm3 (4.8-10.8)
[2025-04-12 12:00] LABS: Alanine Aminotransferase 23 U/L (12-78); Albumin Level 2.8 g/dl (3.5-5.0); Alkaline Phosphatase 94 U/L (38-126); Anion Gap 11.5 mEq/L (5-15); Aspartate Amino Transferase 28 U/L (14-36); Bilirubin,Direct 0.2 mg/dl (0.0-0.4); Bilirubin,Indirect 0.3 mg/dL (0.0-0.9); Bilirubin,Total 0.5 mg/dl (0.2-1.3); Bilirubin,Unconjugated 0.3 mg/dL (0.0-1.1); Blood Urea Nitrogen 24 mg/dl (7-17); Calcium 9.1 mg/dl (8.4-10.2); Carbon Dioxide 25 mmol/L (22.0-30.0); Chloride 107 mmol/L (98-107); Cholesterol 167 mg/dl (140-200); Creatinine,Serum 1.20 mg/dl (0.52-1.04); Estimated Glomerular Filt Rate 45 ml/min (>60); GFR (African American) 54 ML/MIN (>60); Glucose 355 mg/dl (74-100); HDL Cholesterol 41 mg/dl (40-60); Magnesium 1.6 mg/dl (1.6-2.3); Potassium 4.5 mmoL/L (3.5-5.1); Sodium 139 mmol/L (136-145); Total Protein,Serum 6.4 g/dl (6.3-8.2); Triglycerides 348 mg/dl (30-150)
[2025-04-12 12:17] LABS: Free T4 (Free Thyroxine) 0.83 ng/dl (0.78-2.19)
[2025-04-12 12:31] LABS: Thyroid Stimulating Hormone 0.22 uIU/mL (0.465-4.68)
== END 2025-04-12 23:59 | disposition home or self-care (01) ==
LOC: LAB 11:11
PROVIDERS: PCP Family Medicine; Visit Provider Physician Assistant
DX: I25.10 Atherosclerotic heart disease of native coronary artery without angina pectoris (principal); I10 Essential (primary) hypertension; I70.1 Atherosclerosis of renal artery; E11.9 Type 2 diabetes mellitus without complications; Z79.4 Long term (current) use of insulin
CPT/HCPCS: 36415; 80048; 80061; 80076; 82088; 83735; 84244; 84439; 84443; 85025

== ENCOUNTER 2025-04-26 14:03 | Outpatient (CLI) | payer OTHER, MEDICARE, SELFPAY ==
--- OUTSIDE RECORDS SUMMARY | 2025-04-26 14:10 | XMS_ITS | Clinical Summary ---
Author Organization [facility] ystem Address [address] [place] [address] Care Team Providers Care Cardiac Cath Technician Name Role Phone Saundra Muir Monserrat LINO [...] Vaccine ( - season) 2025 Care Teams Cardiac Cath Technician Relationship Specialty Start Date End Date Saundra Muir, RN MENTAL HEALTH [address] [place] [address] PCP - General Family Medicine 06/17/22
[2025-04-26 14:40] LABS: Hematocrit 36.6 % (37.0-47.0); Hemoglobin 11.8 g/dL (12.2-16.2); Immature Granulocytes % 0.5 %; Mean Corpuscular HGB Conc 32.2 g/dL (31.8-35.4); Mean Corpuscular Hemoglobin 32.0 pg (27.0-31.2); Mean Corpuscular Volume 99.2 fl (81-99); Nucleated Red Blood Cells % 0 %; Platelet Count 122 K/mm3 (142-424); Red Blood Count 3.69 M/mm3 (4.20-5.40); Red Cell Distribution Width-SD 46.5 fL; White Blood Count 7.5 K/mm3 (4.8-10.8)
[2025-04-26 15:16] LABS: Anion Gap 10.4 mEq/L (5-15); Blood Urea Nitrogen 23 mg/dl (7-17); Calcium 9.2 mg/dl (8.4-10.2); Carbon Dioxide 24 mmol/L (22.0-30.0); Chloride 109 mmol/L (98-107); Creatinine,Serum 1.50 mg/dl (0.52-1.04); Estimated Glomerular Filt Rate 35 ml/min (>60); GFR (African American) 42 ML/MIN (>60); Glucose 176 mg/dl (74-100); Potassium 4.4 mmoL/L (3.5-5.1); Sodium 139 mmol/L (136-145)
== END 2025-04-26 23:59 | disposition home or self-care (01) ==
LOC: LAB 14:05
PROVIDERS: PCP Family Medicine; Visit Provider Physician Assistant
DX: I25.10 Atherosclerotic heart disease of native coronary artery without angina pectoris (principal); I10 Essential (primary) hypertension
CPT/HCPCS: 36415; 80048; 85025

== ENCOUNTER 2025-06-05 07:40 | Outpatient (CLI) | payer OTHER, MEDICARE, SELFPAY ==
--- OUTSIDE RECORDS SUMMARY | 2025-06-05 07:42 | XMS_ITS | Clinical Summary ---
Author Organization [facility] ystem Address [address] [place] [address] Care Team Providers Care Fiberglass Ski Maker Name Role Phone Saundra Muir Monserrat LINO [...] Vaccine ( - season) 2025 Care Teams Fiberglass Ski Maker Relationship Specialty Start Date End Date Saundra Muir, LOAD DISPATCHER [address] [place] [address] PCP - General Family Medicine 06/17/22
--- OUTSIDE RECORDS SUMMARY | 2025-06-05 07:42 | XMS_ITS ---
Laboratory report Created on: May 15, 2025 ILIA DUQUE : 1960 Sex: Female Author Organization Unknown PROBLEMS Problems List Code Description RESULTS Laboratory Orders Date Order Code Test 2025-04-12 [id number] RENIN ACTIVITY, PLASMA Laboratory Results Date LOINC Test Value Unit Reference Range Interpre tation 2025-04-12 2915-7 RENIN ACTIVITY, PLASMA .524 NG/ML/HR 0.167-5.380
--- OUTSIDE RECORDS SUMMARY | 2025-06-05 07:43 | XMS_ITS ---
Laboratory report Created on: May 15, 2025 ILIA DUQUE : 1960 Sex: Female Author Organization Unknown PROBLEMS Problems List Code Description RESULTS Laboratory Orders Date Order Code Test 2025-03-09 [id number] CATECHOLAMINE+VM A, 24-HR URINE Laboratory Results Date LOINC Test Value Unit Reference Range Interpre tation 2025-03-09 9624-8 VMA, URINE 1.5 MG/L UNDEFINED 2025-03-09 3122-9 VMA, URINE, 24HR 3.7 MG/24 HR 0.0-7.5 2025-03-09 [id number] EPINEPHRINE, URINE <3 UG/L UNDEFINED 2025-03-09 2232-7 EPINEPHRINE, U, 24HR <7 UG/24 HR 0-20 2025-03-09 2667-4 NOREPINEPHRINE, UR 23 UG/L UNDEFINED 2025-03-09 2668-2 NOREPINEPHRINE,U,24H 56 UG/24 HR 0-135 2025-03-09 2217-8 DOPAMINE, URINE 59 UG/L UNDEFINED 2025-03-09 2218-6 DOPAMINE, UR, 24HR 145 UG/24 HR 0-510
[2025-06-05 08:05] LABS: Hematocrit 36.8 % (37.0-47.0); Hemoglobin 12.0 g/dL (12.2-16.2); Immature Granulocytes % 0.5 %; Mean Corpuscular HGB Conc 32.6 g/dL (31.8-35.4); Mean Corpuscular Hemoglobin 31.6 pg (27.0-31.2); Mean Corpuscular Volume 96.8 fl (81-99); Nucleated Red Blood Cells % 0 %; Platelet Count 114 K/mm3 (142-424); Red Blood Count 3.80 M/mm3 (4.20-5.40); Red Cell Distribution Width-SD 46.6 fL; White Blood Count 7.3 K/mm3 (4.8-10.8)
[2025-06-05 08:46] LABS: Chloride 109 mmol/L (98-107); Sodium 140 mmol/L (136-145)
[2025-06-05 08:47] LABS: Potassium 4.3 mmoL/L (3.5-5.1)
[2025-06-05 08:50] LABS: Anion Gap 11.3 mEq/L (5-15); Blood Urea Nitrogen 22 mg/dl (7-17); Calcium 9.6 mg/dl (8.4-10.2); Carbon Dioxide 24 mmol/L (22.0-30.0); Creatinine,Serum 1.40 mg/dl (0.52-1.04); Estimated Glomerular Filt Rate 38 ml/min (>60); GFR (African American) 45 ML/MIN (>60); Glucose 168 mg/dl (74-100)
[2025-06-05 09:11] LABS: Free T4 (Free Thyroxine) 0.84 ng/dl (0.78-2.19)
[2025-06-05 09:17] LABS: Thyroid Stimulating Hormone 0.38 uIU/mL (0.465-4.68)
== END 2025-06-05 23:59 | disposition home or self-care (01) ==
LOC: LAB 07:40
PROVIDERS: Student in an Organized Health Care Education/Training Program; PCP Family Medicine; Visit Provider Physician Assistant
DX: R09.89 Other specified symptoms and signs involving the circulatory and respiratory systems (principal); I10 Essential (primary) hypertension; E11.9 Type 2 diabetes mellitus without complications; Z79.4 Long term (current) use of insulin; R79.89 Other specified abnormal findings of blood chemistry
CPT/HCPCS: 36415; 80048; 82043; 83835; 84439; 84443; 85025

== ENCOUNTER 2025-06-12 11:34 | Observation (INO) | payer OTHER, MEDICARE, SELFPAY ==
[2025-06-12] VITALS (19 sets, daily range): BP systolic 134–168; BP diastolic 53–77; PULSE 60–82; RESP 16–22; TEMP 36.4–36.8; O2SAT 90–98; BMI 43.1
--- NOTE | 2025-06-12 07:02 | IR_ITS ---
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 COMPLICATIONS None Estimated Blood Loss: Less than 10 mls TECHNIQUE One percent lidocaine was used to anesthetize the right groin. The right femoral artery was accessed via the Seldinger technique. A 6-Mongolian sheath was placed in the right femoral artery. The wire would not traverse the iliac artery therefore retrograde femoral angiography was performed. Therapeutic heparin was administered giving a therapeutic ACT following this an advantage wire was used to traverse the subtotal occlusion. A long Brite tip sheath was exchanged and advanced to the right common iliac artery. An 8 mm x 37 mm bare-metal balloon expandable stent was placed in the ostium of the right common iliac artery and deployed at 12 rosendo. This balloon was advanced and deployed at 16 rosendo to post dilate the ostial proximal segment. There was a greater than 100 mm gradient from the aorta into the right common iliac artery before the procedure with 0 gradient after the percutaneous stenting. A 6 fr short MIRANDA guide catheter was used to cannulate the left renal artery first. Grand slam wire inserted, Simplicity catheter advanced over the wire. Starting distally and moving proximally, the catheter was pulled back making several ablations in the side branches as well as the main artery. Simplicity catheter and wire pulled back, final angiogram of left renal taken. everything was removed from the body, perclose closure device used to achieve hemostasis. At the end of the procedure the patient was transferred to the post-op holding area in stable condition. ANGIOGRAPHIC RESULTS Right common iliac artery has an ostial greater than 90% subtotal occlusion Right external and internal iliac arteries are patent Right common femoral arteries widely patent IMPRESSION Subtotal occlusion of the right common iliac artery Successful percutaneous stenting of the right common iliac artery subtotal occlusion reduced to 0% with 1 balloon mounted bare-metal stent reducing a greater than 100 mm trans stenotic gradient to 0. successful Destruction of renal sympathetic nerve(s) using radiofrequency ablation, percutaneous approach Successful Unilateral renal artery angiogram Successful right femoral arterial angiogram PLAN 1. Continue supportive care for management of hypertension and adjust medicines as needed 2. Dual antiplatelet therapy for right common iliac artery stent 3. LDL less than 55 to be achieved with high intensity statin 4. Recommend ABIs and outpatient 5. Risk factor modification for Deana vascular disease Electronically signed by : Bryn Romero MD 06/19/2025 10:55:26
[2025-06-12 07:56] LABS: Hematocrit 36.2 % (37.0-47.0); Hemoglobin 11.8 g/dL (12.2-16.2); Immature Granulocytes % 1.5 %; Mean Corpuscular HGB Conc 32.6 g/dL (31.8-35.4); Mean Corpuscular Hemoglobin 31.9 pg (27.0-31.2); Mean Corpuscular Volume 97.8 fl (81-99); Nucleated Red Blood Cells % 0 %; Platelet Count 150 K/mm3 (142-424); Red Blood Count 3.70 M/mm3 (4.20-5.40); Red Cell Distribution Width-SD 47.1 fL; White Blood Count 8.0 K/mm3 (4.8-10.8)
[2025-06-12 08:09] LABS: Chloride 111 mmol/L (98-107); Potassium 4.3 mmoL/L (3.5-5.1); Sodium 144 mmol/L (136-145)
[2025-06-12 08:12] LABS: Anion Gap 11.3 mEq/L (5-15); Blood Urea Nitrogen 27 mg/dl (7-17); Carbon Dioxide 26 mmol/L (22.0-30.0); Creatinine Clearance Estimated 31 mL/min (50-200); Creatinine,Serum 1.40 mg/dl (0.52-1.04); Estimated Glomerular Filt Rate 38 ml/min (>60); GFR (African American) 45 ML/MIN (>60)
[2025-06-12 08:13] LABS: Calcium 10.1 mg/dl (8.4-10.2); Glucose 133 mg/dl (74-100)
[2025-06-12] MEDS: NITROGLYCERIN 800MCG/8ML SYR (CATH LAB) 800 MCG IA (10:32)
[2025-06-12] MEDS: 0.9 % SODIUM CHLORIDE 500 ML 25 ML IV (10:33)
[2025-06-12] MEDS: LIDOCAINE 1% 10ML MDV 10 ML IJ (10:33)
[2025-06-12] MEDS: HEPARIN 1,000 UNITS/500ML NS (CATH LAB) 3000 UNIT IV (10:34)
[2025-06-12] MEDS: MIDAZOLAM HCL 1MG/ML 5ML VIAL 1 MG IV (12:21)
[2025-06-12] MEDS: FENTANYL 100MCG/2ML VIAL 50 MCG IV (12:21)
[2025-06-12] MEDS: HEPARIN 1,000 UNITS/ML 10ML VIAL (CATH LAB) 5000 UNIT IV (12:23)
--- NOTE | 2025-06-12 12:50 | EXP.HP ---
History of Present Illness *Admission Date: 06/12/25 *Reason for visit:: malignant htn, right hip pain *History of present illness: Ms. Rice is a 65-year-old female with history of obesity, CAD, hypertension, diabetes, solitary kidney. She was brought in for elective renal nerve denervation due to malignant hypertension. During the procedure, found to have elevated gradient between common iliac and aorta. Had severe stenosis and received 1 stent. Successful denervation performed bilateral renal arteries. Cardiology would like to monitor patient overnight monitor blood pressure and kidney function. On arrival to the floor, patient denies any pain other than in her back from having to lay flat. Stable on room air. No nausea or vomiting. Overall feels well. [facility] Disclaimer: The information contained in this section may have been updated after the patient was seen, as this information can be updated by other users. Medical History Fibrosis of lung History of 2019 novel coronavirus disease (COVID-19) Dyspnea on exertion Renal artery stenosis Headache NSTEMI (non-ST elevated myocardial infarction) Elevated troponin I level Hypertensive emergency Flash pulmonary edema Adult respiratory distress syndrome Acute hypoxemic respiratory failure Chest pain Abnormal electrocardiogram [ECG] [EKG] Hypoxemia Acute respiratory failure with hypoxia Pneumonia due to COVID-19 virus Hypoxia Lung nodule Pneumonia Influenza Other chest pain EASTON (obstructive sleep apnea) Diabetes Hypertension Surgical History History of cardiac cath History of kidney surgery History of appendectomy Family History Mother Diabetes Coronary artery disease Hypertension Heart attack Father Diabetes Coronary artery disease Hypertension Heart attack Other Cancer Social History Smoking Status: Former smoker tobacco type: cigarettes packs per day: 2 smoking status stop date: 2011 alcohol intake: never counseling provided: provider counseling substance use type: denies use current occupational status: employed Travel in the last 8 weeks?: None household members: none housing: house Have you lived/traveled outside US in past 30 days?: No Contact w/someone who lives/traveled outside US past 30 days?: No Exposure to someone with infectious disease in past 14 days?: No Do you have a fever (greater than 100.4 F or 38 C)?: No Have you tested positive for COVID-19?: No Exposed to someone with COVID-19 in past 14 days?: No Do you have a sore throat?: No Do you have a cough?: No Do you have any weakness?: No Do you have any diarrhea?: No Are you experiencing any unusual bleeding?: No Do you have any muscle aches/pain?: No Do you have any abdominal pain?: No Are you experiencing loss of taste or smell?: No Other Medical History Have you received the Flu Vaccine for this season: No Have you received the Pneumonia Vaccine: No Review of Systems Review of Systems Review of systems (narrative): 14 point review of systems performed, pertinent positives and negatives as per HPI Meds Home Medications and Allergies Home Medications ?Medication ?Instructions ?Recorded ?Confirmed ?Type red yeast rice 600 mg capsule 600 mg PO DAILY 08/17/19 06/12/25 History glucosamine HCl 500 mg tablet 500 mg PO BID 03/17/22 06/12/25 History multivitamin with minerals 1 tab PO DAILY 03/17/22 06/12/25 History (Hair,Skin and Nails tablet) omega 9-gxb-brx-fish oil 1,000 mg 1 cap PO DAILY 03/17/22 06/12/25 History (120 mg-180 mg) capsule (Fish Oil) aspirin 81 mg tablet,delayed 81 mg PO DAILY 30 days #30 tabs 01/11/25 06/12/25 Rx release (Adult Low Dose Aspirin) atorvastatin 40 mg tablet 40 mg PO HS 30 days #90 tabs 02/13/25 06/12/25 Rx irbesartan 300 mg tablet (Avapro) 300 mg PO DAILY #90 tabs 02/13/25 06/12/25 Rx prasugrel HCl 10 mg tablet 10 mg PO DAILY #90 tabs 02/13/25 06/12/25 Rx ranolazine 500 mg tablet,extended 500 mg PO BID #180 tabs 02/13/25 06/12/25 Rx release,12 hr carvedilol 25 mg tablet 50 mg (2 x 25 mg) PO Q12H #360 tabs 03/22/25 06/12/25 Rx hydrochlorothiazide 50 mg tablet 100 mg (2 x 50 mg) PO DAILY 90 04/12/25 06/12/25 Rx days #180 tabs isosorbide mononitrate 60 mg 60 mg PO BID #60 tabs 04/26/25 06/12/25 Rx tablet,extended release 24 hr spironolactone 100 mg tablet 100 mg PO DAILY 30 days #30 tabs 04/26/25 06/12/25 Rx Fiasp FlexTouch U-100 Insulin 100 8 unit SQ TID #15 mL 05/03/25 06/12/25 Rx unit/mL (3 mL) subcutaneous pen (insulin aspart (niacinamide)) pen needle, diabetic 31 gauge x #150 ea 05/03/25 06/12/25 Rx 5/16 tirzepatide 5 mg/0.5 mL 5 mg (0.5 mL) SQ WEEKLY #2 mL 05/03/25 06/12/25 Rx subcutaneous pen injector insulin glargine 100 unit/mL (3 50 unit (0.5 mL) SQ HS #15 mL 05/07/25 06/12/25 Rx mL) subcutaneous pen (Basaglar KwikPen U-100 Insulin) amlodipine 5 mg tablet 5 mg PO DAILY #90 tabs 05/31/25 06/12/25 Rx clonidine HCl 0.3 mg tablet 0.3 mg PO BID #90 tabs 05/31/25 06/12/25 Rx terazosin 2 mg capsule 6 mg PO HS 06/12/25 06/12/25 History New Prescriptions to Start Prescriptions: Allergies Allergy/AdvReac Type Severity Reaction Status Date / Time amlodipine AdvReac Intermediate swelling Verified 06/04/25 13:09 hydralazine AdvReac Unknown LOW Verified 06/12/25 07:44 PLATELETS Exam Data for Last 24 hours Vital signs and Labs for Last 24 Hours: Temp Pulse Resp BP Pulse Ox O2 Del Method 98.3 F 67 22 163/70 H 97 Room Air 06/12/25 12:30 06/12/25 12:45 06/12/25 12:45 06/12/25 12:45 06/12/25 12:45 06/12/25 12:45 Laboratory Results - last 24 hr 06/12/25 07:50: WBC 8.0, RBC 3.70 L, Hgb 11.8 L, Hct 36.2 L, MCV 97.8, MCH 31.9 H, MCHC 32.6, RDW 13.2, Plt Count 150, MPV 11.5 H, Neut % (Auto) 68.2, Lymph % (Auto) 21.5, Barnes % (Auto) 6.3, Eos % (Auto) 2.1, Baso % (Auto) 0.4, Neut # (Auto) 5.4, Lymph # (Auto) 1.7, Barnes # (Auto) 0.5, Eos # (Auto) 0.2, Baso # (Auto) 0.0, Sodium 144, Potassium 4.3, Chloride 111 H, Carbon Dioxide 26, Anion Gap 11.3, BUN 27 H, Creatinine 1.40 H, Estimated Creat Clear 31, Estimated GFR 38 L, Est GFR ( Amer) 45 L, Glucose 133 H, Calcium 10.1 I & O for Last 24 hours: Intake & Output 06/09/25 06/10/25 06/11/25 06/12/25 23:59 23:59 23:59 23:59 Intake Total 500 / 500 Balance 500 / 500 Weight 107.048 kg Constitutional Constitutional: no acute distress, morbidly obese and cooperative *Routine HEENT Exam Head: Present normocephalic Eye: Present EOMI and PERRL ENT: Present mucous membranes moist *Routine Neck Exam Neck: Present supple; Absent lymphadenopathy *Routine Respiratory Exam Respiratory: Present CTA bilaterally; Absent respiratory distress, stridor, wheezes or crackles *Routine Cardiovascular Exam Cardiovascular: Present RRR *Routine Abdominal Exam Abdominal: Present soft and normoactive bowel sounds; Absent tenderness *Routine Rectal Exam Rectal:: deferred *Routine Genitalia Exam Genitalia:: deferred *Routine Extremities Exam Extremities: Absent cyanosis, clubbing or edema *Routine Skin Exam Skin: Present intact and warm; Absent rash *Routine Neurological Exam Neurological: Present alert, oriented X3 and moving all extremities; Absent altered mental status Assessment and Plan *Assessment and plan (1) Labile hypertension: Status: Acute Category: Medical Code(s): R09.89 - Other specified symptoms and signs involving the circulatory and respiratory systems (2) BMI 40.0-44.9, adult: Problem Comment: Currently on tirzepatide Status: Chronic Category: Medical Code(s): Z68.41 - Body mass index [BMI] 40.0-44.9, adult (3) Malignant hypertension: Status: Chronic Category: Medical Code(s): I10 - Essential (primary) hypertension (4) CAD (coronary artery disease): Status: Chronic Qualifiers: Associated angina: without angina Coronary Disease-Associated Artery/Lesion type: [place] artery [place] vs. 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 Received 1 stent. Tolerated procedure well. Discussed case with cardiology, request admission overnight to monitor kidney function and blood pressure. I decided to admit for further care. Problems addressed as follows: Hypertension Hyperlipidemia PAD/CAD - Resume home regimen of amlodipine 5 mg daily, Lipitor 40 mg nightly, isosorbide mononitrate 60 mg twice daily, irbesartan 300 milligrams daily, prasugrel 10 mg daily, ranolazine 500 mg twice daily - Monitor blood pressure overnight. On telemetry. - Cardiology consulted to evaluate and assist with management - Per my review of fluoroscopy during intervention, patient had critical stenosis of right iliac. Improvement after placement of stent. Likely culprit in her right lower extremity pain, suspect secondary to claudication Diabetes: A1c 9.7 in April on 04/23/2025. Repeat A1c 8.5. Continue sliding scale insulin high intensity with fingersticks ACHS. Continue reduced dose insulin glargine at 30 units tonight. - Would be fit for improved diabetes control. Goal less than 8 given comorbidities CKD 3B - White count 8, hemoglobin 11.8. Kidney function mildly elevated with BUN 27, creatinine 1.4. Repeat CBC, CMP, magnesium ordered for the morning to monitor stability and kidney function given contrast load. Obesity complicates all aspects of her care, continue GLP-1 at discharge per home regimen Full code Diabetic diet
[2025-06-12 16:00] LABS: Hemoglobin A1C 8.5 % (4.0-6.0)
--- NOTE | 2025-06-12 16:16 | PC.NURSE ---
new admission this shift. pt received 1 stent to the R illiac artery and renal denervation. cath site to R groin with scant amount of blood. Dr. Romero rounded on pt and stated that this was expected and cleared her to ambulate. ambulated with standby assistance to the BR numerous times. no complaints of pain. vss. family at bedside. no needs at this time. call light within reach.
[2025-06-12 16:32] LABS: POC Glucose,Bedside 114 gm/dL (70-110)
[2025-06-12] MEDS: CARVEDILOL 25MG TABLET 50 MG PO (18:43)
[2025-06-12 19:57] LABS: POC Glucose,Bedside 146 gm/dL (70-110)
[2025-06-12] MEDS: ISOSORBIDE MONO 60MG TAB.ER.24H 60 MG PO (20:02)
[2025-06-12] MEDS: RANOLAZINE 500MG ER TABLET 500 MG PO (20:02)
[2025-06-12] MEDS: INSULIN GLARGINE 100 UNITS/ML 3ML FLEXPEN 30 UNIT SUBCUT (20:02)
[2025-06-12] MEDS: ATORVASTATIN 40MG TABLET 40 MG PO (20:02)
[2025-06-13] VITALS: BP 123/66; PULSE 60; PULSE 63; RESP 18; TEMP 36.1; O2SAT 95
[2025-06-13 04:00] VITALS: BP 165/66; PULSE 68; PULSE 70; RESP 18; TEMP 36.7; O2SAT 95; BMI 43.0
[2025-06-13 06:15] LABS: POC Glucose,Bedside 117 gm/dL (70-110)
[2025-06-13] MEDS: CARVEDILOL 25MG TABLET 50 MG PO (06:18)
[2025-06-13 06:27] LABS: Hematocrit 33.9 % (37.0-47.0); Hemoglobin 10.7 g/dL (12.2-16.2); Immature Granulocytes % 1.4 %; Mean Corpuscular HGB Conc 31.6 g/dL (31.8-35.4); Mean Corpuscular Hemoglobin 30.8 pg (27.0-31.2); Mean Corpuscular Volume 97.7 fl (81-99); Nucleated Red Blood Cells % 0 %; Platelet Count 158 K/mm3 (142-424); Red Blood Count 3.47 M/mm3 (4.20-5.40); Red Cell Distribution Width-SD 47.2 fL; White Blood Count 10.0 K/mm3 (4.8-10.8)
[2025-06-13 06:34] LABS: Albumin Level 3.4 g/dl (3.5-5.0); Chloride 111 mmol/L (98-107); Potassium 3.9 mmoL/L (3.5-5.1); Sodium 142 mmol/L (136-145)
[2025-06-13 06:37] LABS: Alanine Aminotransferase 17 U/L (12-78); Albumin/Globulin Ratio 1.4 (1.1-1.8); Alkaline Phosphatase 71 U/L (38-126); Anion Gap 10.9 mEq/L (5-15); Aspartate Amino Transferase 30 U/L (14-36); Bilirubin,Total 0.3 mg/dl (0.2-1.3); Blood Urea Nitrogen 24 mg/dl (7-17); Calcium 9.5 mg/dl (8.4-10.2); Carbon Dioxide 24 mmol/L (22.0-30.0); Creatinine Clearance Estimated 27 mL/min (50-200); Creatinine,Serum 1.50 mg/dl (0.52-1.04); Estimated Glomerular Filt Rate 35 ml/min (>60); GFR (African American) 42 ML/MIN (>60); Globulin 2.5 g/dL (1.3-3.2); Glucose 102 mg/dl (74-100); Magnesium 1.8 mg/dl (1.6-2.3); Total Protein,Serum 5.9 g/dl (6.3-8.2)
--- NOTE | 2025-06-13 07:36 | EXP.DC.SUM ---
General Admission date:: 06/12/25 Discharge date: 06/13/25 HPI HPI HPI: Ms. Rice is a 65-year-old female with history of obesity, CAD, hypertension, diabetes, solitary kidney. She was brought in for elective renal nerve denervation due to malignant hypertension. During the procedure, found to have elevated gradient between common iliac and aorta. Had severe stenosis and received 1 stent. Successful denervation performed bilateral renal arteries. Cardiology would like to monitor patient overnight monitor blood pressure and kidney function. On arrival to the floor, patient denies any pain other than in her back from having to lay flat. Stable on room air. No nausea or vomiting. Overall feels well. Hospital Course Hospital Course Hospital Course: 65-year-old female brought in for elective renal nerve denervation.Found to have high gradient between aorta and right iliac. Received 1 stent. Tolerated procedure well. Discussed case with cardiology, request admission overnight to monitor kidney function and blood pressure. I decided to admit for further care. Did well overnight. Kidney function stable in the morning. Adjustments to blood pressure regimen after cardiology evaluation. Stable discharge home. Problems addressed as follows: Hypertension Hyperlipidemia PAD/CAD - Tolerated renal nerve denervation well without any complication. Admitted for observation overnight. Resumed home regimen as follows during admission: amlodipine 5 mg daily, Lipitor 40 mg nightly, isosorbide mononitrate 60 mg twice daily, irbesartan 300 milligrams daily, prasugrel 10 mg daily, ranolazine 500 mg twice daily. Cardiology evaluated in the morning. Recommend continuing regimen except for amlodipine and Ranexa. Will discontinue those at this time. Close follow-up with cardiology in a week. No events on telemetry. Feeling better. Has some improvement in leg pain after stenting of right iliac artery. - Noted during right femoral approach to access renal arteries, patient had critical stenosis of right iliac. Improvement after placement of stent. Likely culprit in her right lower extremity pain, suspect secondary to claudication Diabetes: A1c 9.7 in April on 04/23/2025. Repeat A1c 8.5. Treated with sliding scale insulin and reduced dose of insulin glargine during admission. Resume home regimen at discharge. CKD 3B: Stable during admission. Creatinine 1.4 on admission, 1.5 morning of discharge. Would benefit from repeat labs in 1 to 2 weeks to monitor stability as an outpatient. After discussion with cardiology on day of discharge, continue meds as follows: Aspirin 81 mg daily Effient 10 mg Daily Atorvastatin 40 mg daily Coreg 50 mg BID Clonidine 0.3 mg BID HCTZ 100 mg daily Irbesartan 300 mg daily Imdur 60 mg BID Spironolactone 100 mg daily Terazosin 6 mg daily STOP amlodipine and ranexa Total time spent on discharge 32 minutes in counseling, documentation, chart review, and direct care with patient. Exam Data for Last 24 hours Vital signs and Labs for Last 24 Hours: Temp Pulse Resp BP Pulse Ox O2 Del Method O2 Flow Rate 98.1 F 68 18 165/66 H 95 BiPAP 2 06/13/25 04:00 06/13/25 04:00 06/13/25 04:00 06/13/25 04:00 06/13/25 04:00 06/13/25 05:00 06/12/25 13:00 Laboratory Results - last 24 hr 06/12/25 07:50: WBC 8.0, RBC 3.70 L, Hgb 11.8 L, Hct 36.2 L, MCV 97.8, MCH 31.9 H, MCHC 32.6, RDW 13.2, Plt Count 150, MPV 11.5 H, Neut % (Auto) 68.2, Lymph % (Auto) 21.5, [place] % (Auto) 6.3, Eos % (Auto) 2.1, Baso % (Auto) 0.4, Neut # (Auto) 5.4, Lymph # (Auto) 1.7, [place] # (Auto) 0.5, Eos # (Auto) 0.2, Baso # (Auto) 0.0, Sodium 144, Potassium 4.3, Chloride 111 H, Carbon Dioxide 26, Anion Gap 11.3, BUN 27 H, Creatinine 1.40 H, Estimated Creat Clear 31, Estimated GFR 38 L, Est GFR ( Amer) 45 L, Glucose 133 H, Hemoglobin A1c 8.5 H, Calcium 10.1 06/12/25 16:25: POC Glucose 114 H 06/12/25 19:50: POC Glucose 146 H 06/13/25 05:26: WBC 10.0, RBC 3.47 L, Hgb 10.7 L, Hct 33.9 L, MCV 97.7, MCH 30.8, MCHC 31.6 L, RDW 13.3, Plt Count 158, MPV 11.9 H, Neut % (Auto) 71.8, Lymph % (Auto) 17.7, [place] % (Auto) 6.6, Eos % (Auto) 2.0, Baso % (Auto) 0.5, Neut # (Auto) 7.2, Lymph # (Auto) 1.8, [place] # (Auto) 0.7, Eos # (Auto) 0.2, Baso # (Auto) 0.1, Sodium 142, Potassium 3.9, Chloride 111 H, Carbon Dioxide 24, Anion Gap 10.9, BUN 24 H, Creatinine 1.50 H, Estimated Creat Clear 27, Estimated GFR 35 L, Est GFR ( Amer) 42 L, Glucose 102 H D, Calcium 9.5, Magnesium 1.8, Total Bilirubin 0.3, AST 30, ALT 17, Alkaline Phosphatase 71, Total Protein 5.9 L, Albumin 3.4 L, Globulin 2.5, Albumin/Globulin Ratio 1.4 06/13/25 06:09: POC Glucose 117 H I & O for Last 24 hours: Intake & Output 06/10/25 06/11/25 06/12/25 06/13/25 23:59 23:59 23:59 23:59 Intake Total 860 / 860 Output Total 300 / 300 400 / 400 Balance 560 / 560 -400 / -400 Weight 107.048 kg 105.914 kg Constitutional Constitutional: no acute distress and cooperative *Routine HEENT Exam Head: Present normocephalic Eye: Present EOMI ENT: Present mucous membranes moist *Routine Neck Exam Neck: Present supple; Absent JVD *Routine Respiratory Exam Respiratory: Present CTA bilaterally, normal respiratory effort, able to speak in complete sentences and symmetric chest movement; Absent crackles *Routine Cardiovascular Exam Cardiovascular: Present RRR, Normal S1 and Normal S2 *Routine Abdominal Exam Abdominal: Present soft and normoactive bowel sounds; Absent tenderness or distended *Routine Rectal Exam Patient deferred: visual exam *Routine Exam Patient deferred: external exam *Routine Extremities Exam Extremities: Absent cyanosis or edema *Routine Skin Exam Skin: Present intact, dry and warm; Absent rash *Routine Neurological Exam Neurological: Present alert, oriented X3, moving all extremities, vision grossly intact and hearing grossly intact Detailed Neck Exam: Thyroids Thyroid: Absent bruit Results Data Completed and Pending Labs on day of discharge: Labs from last 24 hours 06/13/25 06/13/25 06/12/25 06:09 05:26 19:50 WBC 10.0 RBC 3.47 L Hgb 10.7 L Hct 33.9 L MCV 97.7 MCH 30.8 MCHC 31.6 L RDW 13.3 Plt Count 158 MPV 11.9 H Neut % (Auto) 71.8 Lymph % (Auto) 17.7 [place] % (Auto) 6.6 Eos % (Auto) 2.0 Baso % (Auto) 0.5 Neut # (Auto) 7.2 Lymph # (Auto) 1.8 [place] # (Auto) 0.7 Eos # (Auto) 0.2 Baso # (Auto) 0.1 Sodium 142 Potassium 3.9 Chloride 111 H Carbon Dioxide 24 Anion Gap 10.9 BUN 24 H Creatinine 1.50 H Estimated Creat Clear 27 Estimated GFR 35 L Est GFR ( Amer) 42 L Glucose 102 H D POC Glucose 117 H 146 H Hemoglobin A1c Calcium 9.5 Magnesium 1.8 Total Bilirubin 0.3 AST 30 ALT 17 Alkaline Phosphatase 71 Total Protein 5.9 L Albumin 3.4 L Globulin 2.5 Albumin/Globulin Ratio 1.4 06/12/25 06/12/25 16:25 07:50 WBC 8.0 RBC 3.70 L Hgb 11.8 L Hct 36.2 L MCV 97.8 MCH 31.9 H MCHC 32.6 RDW 13.2 Plt Count 150 MPV 11.5 H Neut % (Auto) 68.2 Lymph % (Auto) 21.5 [place] % (Auto) 6.3 Eos % (Auto) 2.1 Baso % (Auto) 0.4 Neut # (Auto) 5.4 Lymph # (Auto) 1.7 [place] # (Auto) 0.5 Eos # (Auto) 0.2 Baso # (Auto) 0.0 Sodium 144 Potassium 4.3 Chloride 111 H Carbon Dioxide 26 Anion Gap 11.3 BUN 27 H Creatinine 1.40 H Estimated Creat Clear 31 Estimated GFR 38 L Est GFR ( Amer) 45 L Glucose 133 H POC Glucose 114 H Hemoglobin A1c 8.5 H Calcium 10.1 Magnesium Total Bilirubin AST ALT Alkaline Phosphatase Total Protein Albumin Globulin Albumin/Globulin Ratio DS: Diagnosis Discharge Diagnosis (1) Labile hypertension: Status: Acute Code(s): R09.89 - Other specified symptoms and signs involving the circulatory and respiratory systems (2) BMI 40.0-44.9, adult: Status: Chronic Code(s): Z68.41 - Body mass index [BMI] 40.0-44.9, adult Problem details: Currently on tirzepatide (3) Malignant hypertension: Status: Chronic Code(s): I10 - Essential (primary) hypertension (4) CAD (coronary artery disease): Status: Chronic Code(s): I25.10 - Atherosclerotic heart disease of [place] coronary artery without angina pectoris Qualifiers: Associated angina: without angina Coronary Disease-Associated Artery/Lesion type: [place] artery [place] vs. transplanted heart: [place] heart Qualified Code(s): I25.10 - Atherosclerotic heart disease of [place] coronary artery without angina pectoris (5) Diabetes: Status: Chronic Code(s): E11.9 - Type 2 diabetes mellitus without complications Qualifiers: Diabetes mellitus complication status: without complication Diabetes mellitus fci insulin use: with fci use Diabetes mellitus type: type 2 Qualified Code(s): E11.9 - Type 2 diabetes mellitus without complications; Z79.4 - intermediate card tender (current) use of insulin (6) EASTON (obstructive sleep apnea): Status: Chronic Code(s): G47.33 - Obstructive sleep apnea (adult) (pediatric) Meds Home Medications and Allergies Home Medications ?Medication ?Instructions ?Recorded ?Confirmed ?Type red yeast rice 600 mg capsule 600 mg PO DAILY 08/17/19 06/12/25 History glucosamine HCl 500 mg tablet 500 mg PO BID 03/17/22 06/12/25 History multivitamin with minerals 1 tab PO DAILY 03/17/22 06/12/25 History (Hair,Skin and Nails tablet) omega 6-pda-biy-fish oil 1,000 mg 1 cap PO DAILY 03/17/22 06/12/25 History (120 mg-180 mg) capsule (Fish Oil) aspirin 81 mg tablet,delayed 81 mg PO DAILY 30 days #30 tabs 01/11/25 06/12/25 Rx release (Adult Low Dose Aspirin) atorvastatin 40 mg tablet 40 mg PO HS 30 days #90 tabs 02/13/25 06/12/25 Rx irbesartan 300 mg tablet (Avapro) 300 mg PO DAILY #90 tabs 02/13/25 06/12/25 Rx prasugrel HCl 10 mg tablet 10 mg PO DAILY #90 tabs 02/13/25 06/12/25 Rx carvedilol 25 mg tablet 50 mg (2 x 25 mg) PO Q12H #360 tabs 03/22/25 06/12/25 Rx hydrochlorothiazide 50 mg tablet 100 mg (2 x 50 mg) PO DAILY 90 04/12/25 06/12/25 Rx days #180 tabs isosorbide mononitrate 60 mg 60 mg PO BID #60 tabs 04/26/25 06/12/25 Rx tablet,extended release 24 hr spironolactone 100 mg tablet 100 mg PO DAILY 30 days #30 tabs 04/26/25 06/12/25 Rx Fiasp FlexTouch U-100 Insulin 100 8 unit SQ TID #15 mL 05/03/25 06/12/25 Rx unit/mL (3 mL) subcutaneous pen (insulin aspart (niacinamide)) pen needle, diabetic 31 gauge x #150 ea 05/03/25 06/12/25 Rx 5/16 tirzepatide 5 mg/0.5 mL 5 mg (0.5 mL) SQ WEEKLY #2 mL 05/03/25 06/12/25 Rx subcutaneous pen injector insulin glargine 100 unit/mL (3 50 unit (0.5 mL) SQ HS #15 mL 05/07/25 06/12/25 Rx mL) subcutaneous pen (Basaglar KwikPen U-100 Insulin) clonidine HCl 0.3 mg tablet 0.3 mg PO BID #90 tabs 05/31/25 06/12/25 Rx terazosin 2 mg capsule 6 mg PO HS 06/12/25 06/12/25 History New Prescriptions to Start Prescriptions: Allergies Allergy/AdvReac Type Severity Reaction Status Date / Time amlodipine AdvReac Intermediate swelling Verified 06/04/25 13:09 hydralazine AdvReac Unknown LOW Verified 06/12/25 07:44 PLATELETS Discharge Plan Disposition Patient Disposition: Home, Self-Care Condition: Good Follow up Plan Follow up with: Bryn Romero MD [Staff Physician, Cardiology] - 06/20/25 11:30 am Prescriptions/Medication Reconciliation: Continued omega 4-egi-tqp-fish oil [Fish Oil] 1,000 mg (120 mg-180 mg) capsule 1 cap PO DAILY glucosamine HCl 500 mg tablet 500 mg PO BID Rx Instructions: administer with meals Hair,Skin and Nails Tablet 1 tab PO DAILY Fiasp FlexTouch U-100 Insulin 100 unit/mL (3 mL) insulin pen 8 unit SQ TID Qty: 15 3RF Rx Instructions: Take 8 units three times a day 10 mins before your meals tirzepatide 5 mg/0.5 mL pen injector 5 mg SQ WEEKLY Qty: 2 1RF Rx Instructions: Increase dose to 5mg after 4 weeks of 2.5mg weekly (DME) pen needle, diabetic 31 gauge x 5/16 needle See Rx Instructions .ROUTE .COMPLEX Qty: 150 2RF Dose Instruction: USE DIRECTED WITH INSULIN Rx Instructions: USE 4 times daily with insulin red yeast rice 600 mg capsule 600 mg PO DAILY Rx Instructions: give with meal/snack hydrochlorothiazide 50 mg tablet 100 mg PO DAILY 90 Days Qty: 180 3RF spironolactone 100 mg tablet 100 mg PO DAILY 30 Days Qty: 30 3RF isosorbide mononitrate 60 mg tablet extended release 24 hr 60 mg PO BID Qty: 60 3RF clonidine HCl 0.3 mg tablet 0.3 mg PO BID Qty: 90 3RF atorvastatin 40 mg tablet 40 mg PO HS 30 Days Qty: 90 3RF prasugrel HCl 10 mg tablet 10 mg PO DAILY Qty: 90 3RF irbesartan [Avapro] 300 mg tablet 300 mg PO DAILY Qty: 90 3RF carvedilol 25 mg tablet 50 mg PO Q12H Qty: 360 1RF Rx Instructions: must administer with a meal/food insulin glargine [Basaglar KwikPen U-100 Insulin] 100 unit/mL (3 mL) insulin pen 50 unit SQ HS Qty: 15 3RF aspirin [Adult Low Dose Aspirin] 81 mg tablet,delayed release (DR/EC) 81 mg PO DAILY 30 Days Qty: 30 0RF terazosin 2 mg capsule 6 mg PO HS Discontinued amlodipine 5 mg tablet 5 mg PO DAILY Qty: 90 5RF ranolazine 500 mg tablet extended release 12 hr 500 mg PO BID Qty: 180 2RF Problem Reconciliation Problems Reviewed?: Yes Patient Discharge Instructions ACTIVITY: Continue current activity DIET: continue same diet Patient Instructions: DI for Surgical Site Infection, DI for Moderate Sedation Print Language: [place] Providers Primary Care Provider: Ayan Moran Admit Provider: Kiran Turpin Attending Provider: Kiran Turpin
[2025-06-13 07:41] VITALS: BP 163/68; PULSE 71; RESP 17; TEMP 36.9; O2SAT 94
[2025-06-13 08:15] VITALS: O2SAT 94
[2025-06-13] MEDS: AMLODIPINE 5MG TABLET 5 MG PO (08:34)
[2025-06-13] MEDS: ASPIRIN EC 81MG TABLET 81 MG PO (08:34)
[2025-06-13] MEDS: PRASUGREL 10MG TAB 10 MG PO (08:38)
[2025-06-13] MEDS: IRBESARTAN 300MG TABLET 300 MG PO (08:38)
[2025-06-13] MEDS: RANOLAZINE 500MG ER TABLET 500 MG PO (08:38)
[2025-06-13] MEDS: ISOSORBIDE MONO 60MG TAB.ER.24H 60 MG PO (08:38)
--- NOTE | 2025-06-13 09:03 | EXP.CARD.PN ---
Subjective Subjective Date: 06/13/25 Time: 09:04 Principal diagnosis: HTN, s/p renal denervation procedure Interval history: 65 yo WF in bedside chair in NAD. No complaints overnight. Wants to go home. BP has improved since procedure. Exam Data for Last 24 hours Vital signs and Labs for Last 24 Hours: Temp Pulse Resp BP Pulse Ox O2 Del Method O2 Flow Rate 98.4 F 71 17 163/68 H 94 L Room Air 2 06/13/25 07:41 06/13/25 07:41 06/13/25 07:41 06/13/25 07:41 06/13/25 07:41 06/13/25 07:41 06/12/25 13:00 Laboratory Results - last 24 hr 06/12/25 07:50: Hemoglobin A1c 8.5 H 06/12/25 16:25: POC Glucose 114 H 06/12/25 19:50: POC Glucose 146 H 06/13/25 05:26: WBC 10.0, RBC 3.47 L, Hgb 10.7 L, Hct 33.9 L, MCV 97.7, MCH 30.8, MCHC 31.6 L, RDW 13.3, Plt Count 158, MPV 11.9 H, Neut % (Auto) 71.8, Lymph % (Auto) 17.7, [place] % (Auto) 6.6, Eos % (Auto) 2.0, Baso % (Auto) 0.5, Neut # (Auto) 7.2, Lymph # (Auto) 1.8, [place] # (Auto) 0.7, Eos # (Auto) 0.2, Baso # (Auto) 0.1, Sodium 142, Potassium 3.9, Chloride 111 H, Carbon Dioxide 24, Anion Gap 10.9, BUN 24 H, Creatinine 1.50 H, Estimated Creat Clear 27, Estimated GFR 35 L, Est GFR ( Amer) 42 L, Glucose 102 H D, Calcium 9.5, Magnesium 1.8, Total Bilirubin 0.3, AST 30, ALT 17, Alkaline Phosphatase 71, Total Protein 5.9 L, Albumin 3.4 L, Globulin 2.5, Albumin/Globulin Ratio 1.4 06/13/25 06:09: POC Glucose 117 H I & O for Last 24 hours: Intake & Output 06/10/25 06/11/25 06/12/2525 11:59 11:59 11:59 11:59 Intake Total 1580 / 1580 Output Total 700 / 700 Balance 880 / 880 Weight 236 lb 233 lb 8 oz Constitutional Constitutional: no acute distress *Routine Respiratory Exam Respiratory: Present CTA bilaterally *Routine Cardiovascular Exam Cardiovascular: Present RRR Progress Note: A&P Assessment and plan (1) Labile hypertension: Status: Acute (2) BMI 40.0-44.9, adult: Problem details: Currently on tirzepatide Status: Chronic (3) Malignant hypertension: Status: Chronic (4) CAD (coronary artery disease): Status: Chronic (5) Diabetes: Status: Chronic (6) EASTON (obstructive sleep apnea): Status: Chronic Assessment and Plan Assessment and Plan for All Diagnoses:: 1. Labile HTN -s/p renal denervation procedure, 06/12/2025 -systolic BP 140-160 mm Hg -continue home meds except stop amlodipine and ranexa at discharge -continue home BP monitoring 2. PAD -s/p right iliac artery stenting -on ASA and effient 3. Solitary functioning kidney -Cr 1.5 with GFR 35, stable 4. CAD -RCA XIOMARA, 12/2024 Stable for discharge home from cardiac standpoint. Home med recs: Aspirin 81 mg daily Effient 10 mg Daily Atorvastatin 40 mg daily Coreg 50 mg BID Clonidine 0.3 mg BID HCTZ 100 mg daily Irbesartan 300 mg daily Imdur 60 mg BID Spironolactone 100 mg daily Terazosin 6 mg daily STOP amlodipine and ranexa Follow up in one week.
--- NOTE | 2025-06-15 10:09 | SW/DCPLANNER ---
Spoke with patient on the phone. Patient stated that she is doing good. Patient stated that she is aware of her upcoming appointment. Patient stated that she was not prescribed any new medicine. Patient stated that she has no concerns or questions at this time. Jose Alberto Ortiz
== END 2025-06-13 10:50 | disposition home or self-care (01) ==
LOC: 2ND 11:34
PROVIDERS: Internal Medicine; Admitting Provider Internal Medicine Adolescent Medicine; PCP Family Medicine; Visit Provider Internal Medicine Adolescent Medicine
DX: I12.9 Hypertensive chronic kidney disease with stage 1 through stage 4 chronic kidney disease, or unspecified chronic kidney disease (principal); Z00.6 Encounter for examination for normal comparison and control in clinical research program; I1A.0 Resistant hypertension; I25.10 Atherosclerotic heart disease of native coronary artery without angina pectoris; I25.2 Old myocardial infarction; Z87.891 Personal history of nicotine dependence; I70.1 Atherosclerosis of renal artery; E11.22 Type 2 diabetes mellitus with diabetic chronic kidney disease; N18.32 Chronic kidney disease, stage 3b; E66.01 Morbid (severe) obesity due to excess calories; Z79.4 Long term (current) use of insulin; G47.33 Obstructive sleep apnea (adult) (pediatric); Z68.41 Body mass index [BMI] 40.0-44.9, adult; Z79.899 Other long term (current) drug therapy; Z88.8 Allergy status to other drugs, medicaments and biological substances; Z87.09 Personal history of other diseases of the respiratory system
CPT/HCPCS: 0338T; 36415; 80048; 80053; 82962; 83036; 83735; 85025; 96372; 99152; 99153; C1725; C1735; C1760; C1769; C1876; C1887; C1894; G0378; J1200; J1644; J3010; J7040; Q9967